=== PATIENT | female | born 1965 | race Caucasian/White ===

== ENCOUNTER 2020-05-20 08:43 | Outpatient (REF) | payer MEDICAID, SELFPAY | END 2020-05-20 08:44 | disposition home or self-care (01) | LOC: HO.LAB 08:43 | PROVIDERS: PCP Nurse Practitioner Family; Visit Provider Internal Medicine | DX: Z20.828 Contact with and (suspected) exposure to other viral communicable diseases (principal) | CPT/HCPCS: C9803; U0003 ==

== ENCOUNTER → 2020-06-20 08:39 | Outpatient (BNVA) | payer MEDICAID, SELFPAY | PROVIDERS: PCP Nurse Practitioner Family; Visit Provider Physician Assistant ==

== ENCOUNTER → 2020-06-29 09:08 | Outpatient (BNVA) | payer MEDICAID, SELFPAY | PROVIDERS: Visit Provider Physician Assistant ==

== ENCOUNTER → 2020-07-05 08:24 | Outpatient (BNVA) | payer MEDICAID, SELFPAY | PROVIDERS: PCP Nurse Practitioner Family; Visit Provider Orthopaedic Surgery | DX: M22.2X2 Patellofemoral disorders, left knee (principal) | CPT/HCPCS: 99212 ==

== ENCOUNTER 2020-09-04 07:33 | Outpatient (REF) | payer MEDICAID, SELFPAY | END 2020-09-04 07:34 | disposition home or self-care (01) | LOC: HO.LAB 07:33 | PROVIDERS: Visit Provider Internal Medicine | DX: Z20.822 Contact with and (suspected) exposure to COVID-19 (principal) | CPT/HCPCS: C9803; U0003; U0005 ==

== ENCOUNTER 2020-09-15 10:42 | Outpatient (REF) | payer MEDICAID, SELFPAY ==
[2020-09-15 11:04] LABS: COVID-19 Test Negative (Negative); IDNOW Serial# 55D5AD1C
== END 2020-09-15 10:43 | disposition home or self-care (01) ==
LOC: HO.LAB 10:42
PROVIDERS: Visit Provider Internal Medicine
DX: Z20.822 Contact with and (suspected) exposure to COVID-19 (principal)
CPT/HCPCS: 36415; 87635; C9803

== ENCOUNTER 2021-06-22 09:14 | Outpatient (REF) | payer MEDICAID, SELFPAY ==
--- NOTE | ~2021-06-22 | MM_ITS ---
EXAMINATION: MM SCREENING DIGITAL BREAST TOMOSYNTHESIS, BILATERAL CLINICAL INFORMATION: Screening. Asymptomatic. Prior left breast biopsy 02/05/2010 for a 2.8 cm mass upper outer quadrant(fibroadenoma; no clip placed). Prior right biopsy benign. The lifetime risk of breast cancer based on the Tyrer-Cuzick Model is 6%. COMPARISON: Mammography: 10/15/2018, 10/01/2017, 09/19/2016, 08/28/2015, 02/01/2015 TECHNIQUE: Digital breast tomosynthesis is performed in both the craniocaudal and mediolateral oblique views along with computer-aided detection (CAD). Synthesized 2D images are generated from the tomosynthesis. FINDINGS: There are scattered areas of fibroglandular density (ACR BI-RADS breast composition Category b). There are no significant masses, abnormal calcifications, or other abnormalities. Parenchymal pattern is similar to prior studies. There is no developing density or architectural abnormality. There is biopsy clip marker right breast mid upper outer quadrant. Fibroadenoma posterior upper outer left breast is decreased in size since 2014. The axilla and skin contours are unremarkable. No significant changes. MM/MM tomosynthesis screening BI IMPRESSION: No mammographic evidence of malignancy. ASSESSMENT: BI-RADS 2: Benign RECOMMENDATION: Routine annual mammography screening. This patient's information was entered into a reminder system with a target due date for their next mammogram.
== END 2021-06-22 09:15 | disposition home or self-care (01) ==
LOC: HO.MAMMO 09:14
PROVIDERS: PCP Internal Medicine; Visit Provider Internal Medicine
DX: Z12.31 Encounter for screening mammogram for malignant neoplasm of breast (principal)
CPT/HCPCS: 77063; 77067

== ENCOUNTER → 2021-08-29 10:23 | Outpatient (BNVA) | payer MEDICAID, SELFPAY | PROVIDERS: PCP Internal Medicine; Referring Provider Internal Medicine; Visit Provider Physician Assistant | DX: R13.10 Dysphagia, unspecified (principal) | CPT/HCPCS: 99212 ==

== ENCOUNTER 2022-03-05 09:01 | Day surgery (SDC) | payer MEDICAID, SELFPAY ==
[2021-11-01 14:39] VITALS: BMI 36.3
[2022-02-28 11:32] VITALS: BMI 36.3
--- NOTE | 2022-03-01 12:03 | HO.ANESPROP2 ---
Documented by User: Charley Alonso NP 03/01/22 12:03 HPI - Anesthesia Eval Consult details Narrative: 56yo F for Upper Endoscopy PMFSH Active Problems Active Problems: All Active Problems (Updated 08/29/21 @ 11:51 by Jalyn Shannon PA-C) Dysphagia (Acute) Patellofemoral pain syndrome of left knee (Acute) Bipolar 1 disorder (Acute) HTN (hypertension) (Acute) Past Medical History Medical History Bipolar 1 disorder HTN (hypertension) Family History Family History Mother No problems noted. Father No problems noted. 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 Alcohol intake: current Alcohol intake frequency: holidays/special occasions only Patient Tobacco Use Status: Current everyday Tobacco user Tobacco use type: Cigarette Cigarettes Per Day: 10 Date Education Initiated: 03/05/22 Use of substances other than those prescribed or required for medical reasons: Yes Substance Use Type: Marijuana Are you DNR?: No Advance Directives: No Advance Directives Information Provided: Yes Current occupational status: disabled Meds Allergies Allergy/AdvReac Type Severity Reaction Status Date / Time silicone [SILICONE] Allergy Severe RASH Verified 08/29/21 10:25 celecoxib [Celebrex] Allergy Intermediate hives Verified 11/01/21 14:32 peach Allergy Mild Hives Verified 11/01/21 14:33 Home Medications Medication Instructions Recorded Confirmed Last Taken Type quetiapine 50 mg tablet (Seroquel) 50 mg PO DAILY 06/29/20 11/01/21 Unknown History lamotrigine 100 mg tablet 100 mg PO DAILY 07/05/20 11/01/21 Unknown History Exam Exam Date and Time: March 01, 2022 1203 Height,Weight and Vital Signs: Height 5 ft 3 in Weight 92.986 kg Assessment and Plan Assessment Anesthesia Assessment: Chart Reviewed Documented by User: Tj Irving MD 03/05/22 10:03 HPI - Anesthesia Eval Consult details Narrative: 56yo F for Upper Endoscopy Potentially severe undiagnosed VIDYA PMFSH Past Medical History Medical History Bipolar 1 disorder HTN (hypertension) Family History Family History Mother No problems noted. Father No problems noted. 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 Alcohol intake: current Alcohol intake frequency: holidays/special occasions only Patient Tobacco Use Status: Current everyday Tobacco user Tobacco use type: Cigarette Cigarettes Per Day: 10 Date Education Initiated: 03/05/22 Use of substances other than those prescribed or required for medical reasons: Yes Substance Use Type: Marijuana Are you DNR?: No Advance Directives: No Advance Directives Information Provided: Yes Current occupational status: disabled Meds Allergies Allergy/AdvReac Type Severity Reaction Status Date / Time silicone [SILICONE] Allergy Severe RASH Verified 08/29/21 10:25 celecoxib [Celebrex] Allergy Intermediate hives Verified 11/01/21 14:32 peach Allergy Mild Hives Verified 11/01/21 14:33 Home Medications Medication Instructions Recorded Confirmed Last Taken Type quetiapine 50 mg tablet (Seroquel) 50 mg PO DAILY 06/29/20 11/01/21 Unknown History lamotrigine 100 mg tablet 100 mg PO DAILY 07/05/20 11/01/21 Unknown History Exam Airway Mallampati Class: II TM Dist: >3cm Neck ROM: Full Denture: Upper and Lower Assessment and Plan Assessment Anesthesia Assessment: Anesthesia Plan Discussed Final Anesthetic Review Family History of Problems with Anesthesia: No History of Problems with Anesthesia: No NPO: Yes ASA Class: III Final Preanesthetic Review: No Changes in Pt Med Stat, Meds/Allgs Chart Reviewed, Consent Obtained/Reviewed and Anes Risks/Benef Reviewed Patient Risk: Intermediate Procedure Risk: Low Anesthetic Plan Anesthetic Plan: MAC: Disposition: Standard PACU
[2022-03-05 09:37] VITALS: BP 133/73; PULSE 80; RESP 18; TEMP 36.1; O2SAT 100; BMI 34.3
--- NOTE | 2022-03-05 09:37 | MHC.SHP ---
Pre-Procedural Eval Section A Date of Service: 03/05/22 Section B Chief Complaint: dysphagia Relevant Family History (Specify if Yes): No Relevant Social History: Tobacco Use Present Medications: see Short Stay Collaborative assessment Medical History: Significant History (Bipolar 1 disorder HTN (hypertension)) History of Previous Operations: Relevant previous surgery/procedure and date(s) (Delivery by section H/O colonoscopy History of breast lump/mass excision History of esophagogastroduodenoscopy (EGD) Hx laparoscopic cholecystectomy Hx of excision of mass) Allergies: Allergies Allergy/AdvReac Type Severity Reaction Status Date / Time silicone [SILICONE] Allergy Severe RASH Verified 08/29/21 10:25 celecoxib [Celebrex] Allergy Intermediate hives Verified 11/01/21 14:32 peach Allergy Mild Hives Verified 11/01/21 14:33 Review of Systems Sugical H&P ROS: Negative: Constitution, Cardiovascular, Respiratory, Neurological, Psychiatric, Hem-Onc, Allergic/Immunologic, Gastrointestinal, Genitourinary, Musculoskeletal, Integumentary, Endocrine and Eyes/Ears/Nose/Throat Exam Surgical H&P Exam: Normal: HEENT, Normal: Heart, Normal: Lungs, Normal: Extremities, Normal: Abdomen, Normal: Skin and Normal: Neurological Plan Diagnosis/Plan: Unchanged I have reviewed the history and physical and performed a pertinent physical examination on my patient. No changes have occurred unless specified.
--- NOTE | 2022-03-05 10:03 | W.PM.OPN ---
Operative Note Operative Note Date of Service: 03/05/22 Narrative: Procedure Description: EGD Indication: dysphagia Anesthesia: MAC FLEXIBLE TRANSORAL UPPER GASTROINTESTINAL ENDOSCOPY UPPER ENDOSCOPY Consent: Indications for the procedure and potential complications of bleeding, perforation, reaction to medications and missed diagnosis were discussed with the patient and informed consent was obtained. Instrument: Olympus GIF H 190 J mid size upper endoscope Monitoring: Vital signs and clinical assessment, continuous EKG monitoring, Pulse oximetry, Carbon Dioxide monitoring and blood pressure monitoring were done throughout the procedure. Procedure: The patient was placed in the left lateral decubitis position and pre-procedure medications were administered and a bite block was placed. The endoscope was inserted into the mouth and advanced under direct vision to the third part of duodenum. A careful inspection was made as the upper endoscope was withdrawn including a retroflexed examination of the proximal stomach; Findings and interventions are described below. Findings: Larynx:normal Esophagus: GE junction at 38 cm, diaphragm hiatus at 38 cm, mild bogginess and edema at GEJ, bx taken. Balloon dilation of UEs and LES to 20 mm, no tears seen. Stomach: Patchy gastric erythema. Biopsies were obtained. Grade 2 flap valve on retroflexed examination of the cardia. Duodenum: Normal bulb and descending duodenum, Intervention: Biopsies as noted above, balloon dilation Impression/Findings: gastritis mild esophagitis PLAN: cont with PPI if ongoing sx then can increase PPI, or consider JEFFERS vs ph and manometry studies
[2022-03-05] MEDS: Lactated Ringers 1,000 ML 100 ML IVCONT (10:09)
[2022-03-05 10:35] VITALS: BP 144/84; PULSE 78; RESP 20; TEMP 36.4; O2SAT 98
[2022-03-05 10:54] VITALS: BP 154/87; PULSE 70; RESP 18; TEMP 36.2; O2SAT 100
== END 2022-03-05 11:13 | disposition home or self-care (01) ==
PROVIDERS: PCP Internal Medicine; Visit Provider Internal Medicine Gastroenterology
PROC: 0DJ08ZZ Inspection of Upper Intestinal Tract, Via Natural or Artificial Opening Endoscopic (ICD-10-PCS; CPT 43235; principal; 2022-03-05 10:10)
DX: R13.10 Dysphagia, unspecified (principal); K20.80 Other esophagitis without bleeding; K29.50 Unspecified chronic gastritis without bleeding; K44.9 Diaphragmatic hernia without obstruction or gangrene; K21.9 Gastro-esophageal reflux disease without esophagitis; F31.9 Bipolar disorder, unspecified; I10 Essential (primary) hypertension; Z79.899 Other long term (current) drug therapy; Z88.8 Allergy status to other drugs, medicaments and biological substances; F12.90 Cannabis use, unspecified, uncomplicated
CPT/HCPCS: 43249; 43239; 88305; 88342; C1726

== ENCOUNTER 2022-06-20 13:53 | Emergency (ER) | payer MEDICAID, SELFPAY ==
--- NOTE | ~2022-06-20 | XR_ITS ---
EXAMINATION: XR HAND, LEFT CLINICAL INFORMATION: Dogbite of the left hand fourth digit COMPARISON: 08/13/2016 TECHNIQUE: PA, lateral, and oblique views of the left hand. FINDINGS: Soft tissue irregularity of the fourth digit adjacent to the proximal interphalangeal joint. No acute fracture. No dislocation. Joint spaces are maintained. No radiopaque foreign body. XR/XR hand LT 2V IMPRESSION: Soft tissue irregularity of the fourth digit. No acute osseous abnormality. No radiopaque foreign body.
--- NOTE | 2022-06-20 14:14 | ED.ANIMALBIT ---
HPI - Animal Bite General Chief Complaint: Animal Bite <Aide Ding NP - Last Filed: 06/22/22 08:07> Stated Complaint: dog bite <Aide Ding NP - Last Filed: 06/22/22 08:07> Time Seen by Provider: 06/20/22 15:08 <Aide Ding NP - Last Filed: 06/22/22 08:07> History of Present Illness HPI narrative: Patient complains of dog bite from her own dog on the left ring finger and middle finger, she was moving the dog's bed and the dog bit her No other injuries no numbness weakness or tingling, dog is up-to-date on rabies vaccine and can be observed in her own house by her She has no difficulty bending or moving the finger and she can feel the fingertip <GRACE Venegas - Last Filed: 06/28/22 16:55> Related Data Home Medications: Home Medications Medication Instructions Recorded Confirmed quetiapine 50 mg tablet (Seroquel) 50 mg PO DAILY 06/29/20 11/01/21 lamotrigine 100 mg tablet 100 mg PO DAILY 07/05/20 11/01/21 Previous Rx's Medication Instructions Recorded omeprazole 20 mg capsule,delayed 20 mg PO DAILY #30 caps 02/27/22 release amoxicillin 875 mg-potassium 1 tab PO BID 5 days #10 tabs 06/20/22 clavulanate 125 mg tablet <Aide Ding NP - Last Filed: 06/22/22 08:07> Allergies/Adverse Reactions: Allergies Allergy/AdvReac Type Severity Reaction Status Date / Time silicone [SILICONE] Allergy Severe RASH Verified 08/29/21 10:25 celecoxib [Celebrex] Allergy Intermediate hives Verified 11/01/21 14:32 peach Allergy Mild Hives Verified 11/01/21 14:33 <Aide Ding NP - Last Filed: 06/22/22 08:07> [facility] Past Medical History Medical History: Medical History (Updated 06/21/22 @ 00:01 by Jacqueline Mac) Bipolar 1 disorder HTN (hypertension) <Aide Ding NP - Last Filed: 06/22/22 08:07> Surgical History: Surgical History Delivery by section H/O colonoscopy History of breast lump/mass excision History of esophagogastroduodenoscopy (EGD) Hx laparoscopic cholecystectomy Hx of excision of mass <Aide Ding NP - Last Filed: 06/22/22 08:07> Family History Family History: Family History Mother No problems noted. Father No problems noted. 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 Alcohol intake: never Patient Tobacco Use Status: Current everyday Tobacco user Tobacco use type: Cigarette Cigarettes Per Day: 10 Smoked in Last 30 Days: No Use of substances other than those prescribed or required for medical reasons: No Substance Use Type: Marijuana Advance Directives: No Current occupational status: disabled <Aide Ding NP - Last Filed: 06/22/22 08:07> Physical Exam ED Vital Signs: Vital Signs - 24 hr 06/20/22 14:15 Temperature 97.2 F Pulse Rate 85 Respiratory Rate 16 Blood Pressure 162/97 H Pulse Oximetry 98 Oxygen Delivery Method Room Air BMI result Body Mass Index 36.6 <Aide Ding NP - Last Filed: 06/22/22 08:07> Vital Signs - 24 hr 06/20/22 14:15 Temperature 97.2 F Pulse Rate 85 Respiratory Rate 16 Blood Pressure 162/97 H Pulse Oximetry 98 Oxygen Delivery Method Room Air BMI result Body Mass Index 36.6 <GRACE Venegas - Last Filed: 06/28/22 16:55> General appearance comfortable no distress Head is normocephalic atraumatic Neck is supple Respiratory no distress Extremities full range of motion x4 Left dorsal mid phalanx has a 1 cm superficial flap lack Left hand exam the left ring finger dorsal proximal phalanx and lateral pleura small phalanx has a 2 cm flap laceration with skin gaping, there is full range of motion in the finger, tendon function both flexion and extension is full and normal, sensation is intact distal, neurovascular intact The left 3rd finger has a superficial bite parker to the mid phalanx dorsal again full tendon function, neurovascular intact <GRACE Venegas - Last Filed: 06/28/22 16:55> Course Course Course Narrative: This is a rapid medical exam. Deferred additional HPI, ROS, PE to primary provider. 56 yo female with history HTN, hypothyroidism, depression, HLD, bipolar disorder here dog bite to left 4th finger from her own dog. Dog UTD with vaccinations. Patient with large laceration to left 4th finger. FROM in digit. Tetanus UTS, Will obtain x-ray. VSS <Aide Ding NP - Last Filed: 06/22/22 08:07> This is a rapid medical exam. Deferred additional HPI, ROS, PE to primary provider. 56 yo female with history HTN, hypothyroidism, depression, HLD, bipolar disorder here dog bite to left 4th finger from her own dog. Dog UTD with vaccinations. Patient with large laceration to left 4th finger. FROM in digit. Tetanus UTS, Will obtain x-ray. VSS Procedure note 2.5 cm flap laceration to the dorsal and lateral left ring finger, as well as the 2nd more superficial dorsal mid phalanx 1 cm laceration is cleansed and irrigated with normal saline copiously Anesthesia is 6 cc of 1% lidocaine digital block Loose sutures were placed, 850 nylon sutures to reapproximate the wound Dressing was placed The left 3rd finger laceration was irrigated but that not need repair <GRACE Venegas - Last Filed: 06/28/22 16:55> Medications Administered Discontinued Medications Generic Name Dose Route Start Last Admin Trade Name Jaguarq PRN Reason Stop Dose Admin Amoxicillin/Clavulanate Potassium 875 mg 06/20/22 15:14 06/20/22 16:33 Amoxicillin/Potassium Clav 875 Mg Tablet PO 06/20/22 15:15 875 mg ONCE ONE Administration Diphtheria/Tetanus/Acell Pertussis 0.5 ml 06/20/22 16:08 06/20/22 16:33 Diphth,Pertus(Acell),Tet Adult 0.5 Ml Syringe IM 06/20/22 16:09 0.5 ml .ONCE ONE Administration Lidocaine HCl 2 ml 06/20/22 15:14 06/20/22 16:17 Lidocaine Hcl 1 % Mpf 2 Ml Vial INFILTRATI 06/20/22 15:15 2 ml ONCE ONE Administration Lidocaine HCl 2 ml 06/20/22 15:14 06/20/22 16:17 Lidocaine Hcl 1 % Mpf 2 Ml Vial INFILTRATI 06/20/22 15:15 2 ml ONCE ONE Administration Lidocaine HCl 2 ml 06/20/22 15:14 06/20/22 16:17 Lidocaine Hcl 1 % Mpf 2 Ml Vial INFILTRATI 06/20/22 15:15 2 ml ONCE ONE Administration Lidocaine HCl 2 ml 06/20/22 15:14 06/20/22 16:17 Lidocaine Hcl 1 % Mpf 2 Ml Vial INFILTRATI 06/20/22 15:15 2 ml ONCE ONE Administration <Aide Ding NP - Last Filed: 06/22/22 08:07> Medications Administered Discontinued Medications Generic Name Dose Route Start Last Admin Trade Name Freq PRN Reason Stop Dose Admin Amoxicillin/Clavulanate Potassium 875 mg 06/20/22 15:14 06/20/22 16:33 Amoxicillin/Potassium Clav 875 Mg Tablet PO 06/20/22 15:15 875 mg ONCE ONE Administration Diphtheria/Tetanus/Acell Pertussis 0.5 ml 06/20/22 16:08 06/20/22 16:33 Diphth,Pertus(Acell),Tet Adult 0.5 Ml Syringe IM 06/20/22 16:09 0.5 ml .ONCE ONE Administration Lidocaine HCl 2 ml 06/20/22 15:14 06/20/22 16:17 Lidocaine Hcl 1 % Mpf 2 Ml Vial INFILTRATI 06/20/22 15:15 2 ml ONCE ONE Administration Lidocaine HCl 2 ml 06/20/22 15:14 06/20/22 16:17 Lidocaine Hcl 1 % Mpf 2 Ml Vial INFILTRATI 06/20/22 15:15 2 ml ONCE ONE Administration Lidocaine HCl 2 ml 06/20/22 15:14 06/20/22 16:17 Lidocaine Hcl 1 % Mpf 2 Ml Vial INFILTRATI 06/20/22 15:15 2 ml ONCE ONE Administration Lidocaine HCl 2 ml 06/20/22 15:14 06/20/22 16:17 Lidocaine Hcl 1 % Mpf 2 Ml Vial INFILTRATI 06/20/22 15:15 2 ml ONCE ONE Administration <GRACE Venegas - Last Filed: 06/28/22 16:55> Discharge Plan Discharge Clinical Impression: Dog bite, Laceration of left ring finger <Aide Ding NP - Last Filed: 06/22/22 08:07> Patient Disposition: Home, Self-Care <Aide Ding NP - Last Filed: 06/22/22 08:07> Additional Instructions: We gave you a tetanus shot We started Augmentin antibiotic to prevent infection The wound is cleaned as best possible and was sutured loosely as dog bites are prone to get infected Sutures need to be removed in 7 days Return any time for redness swelling discharge from wound increased pain from wound red stripe up the arm any sign of infection any worse condition or any concerns You got a tetanus shot today <Aide Ding NP - Last Filed: 06/22/22 08:07> Prescriptions: New amoxicillin-pot clavulanate 875-125 mg tablet 1 tab PO BID 5 Days Qty: 10 0RF No Action omeprazole 20 mg capsule,delayed release(DR/EC) 20 mg PO DAILY Qty: 30 5RF quetiapine [Seroquel] 50 mg tablet 50 mg PO DAILY lamotrigine 100 mg tablet 100 mg PO DAILY <Aide Ding NP - Last Filed: 06/22/22 08:07> Interventions: ED Discharge Assessment Last Done: 06/20/22 16:35 <Aide Dnig NP - Last Filed: 06/22/22 08:07> Discharge Date/Time: 06/20/22 16:36 <Aide Ding NP - Last Filed: 06/22/22 08:07>
[2022-06-20 14:15] VITALS: BP 162/97; PULSE 85; RESP 16; TEMP 36.2; O2SAT 98; BMI 36.6
--- NOTE | 2022-06-20 16:15 | PC.NURSE ---
faxed Animal Bite form to appropriate location.
[2022-06-20] MEDS: Lidocaine HCl 1 % MPF 2 ML VIAL INFILTRATI ×4 (16:17)
[2022-06-20] MEDS: Diphth,Pertus(ACell),Tet Adult 0.5 ML SYRINGE IM (16:33)
[2022-06-20] MEDS: Amoxicillin/Potassium Clav 875 MG TABLET PO (16:33)
== END 2022-06-20 16:36 | disposition home or self-care (01) ==
PROVIDERS: Emergency Provider Student in an Organized Health Care Education/Training Program
DX: S60.475A Other superficial bite of left ring finger, initial encounter (principal); S61.215A Laceration without foreign body of left ring finger without damage to nail, initial encounter; S60.415A Abrasion of left ring finger, initial encounter; W54.0XXA Bitten by dog, initial encounter; Y93.9 Activity, unspecified; Y92.9 Unspecified place or not applicable; Y99.9 Unspecified external cause status; Z23 Encounter for immunization; Z79.899 Other long term (current) drug therapy
CPT/HCPCS: 12042; 73120; 90471; 90715; 99283; 99284

== ENCOUNTER 2022-07-06 10:33 | Emergency (ER) | payer MEDICAID, SELFPAY ==
[2022-07-06 10:37] VITALS: BP 149/86; PULSE 102; RESP 16; TEMP 36.7; O2SAT 100; BMI 31.6
--- NOTE | 2022-07-06 11:15 | ED_ITS ---
HPI - General Adult General Chief complaint: Wound/Laceration Stated complaint: Suture removal Time Seen by Provider: 07/06/22 11:15 Source: patient Mode of arrival: ambulatory Limitations: no limitations History of Present Illness HPI narrative: Patient is a 56 year old assigned female at with a history of HTN and bipolar type 1 disorder presenting to the emergency department today for suture removal. Patient states that on 06/20/2022 she was bit by a dog and had sutures placed in her finger. Patient states that she finished her antibiotics. Patient states that she has been having some intermittent numbness to the finger affected but otherwise has no complaints. Patient denies any dizziness, lightheadedness, abdominal pain, nausea, vomiting, fever, chills, blurry vision, double vision, loss of vision, chest pain, difficulty breathing, shortness of breath, back pain, night sweats, pain with urination, increased urinary frequency, increased urinary urgency, blood in her urine or stool, syncope or a near syncopal episode, bowel incontinence, bladder incontinence, bowel retention, bladder retention, or any other complaints at this time. Severity: mild Severity scale (1-10): 2 Relieving factors: none Exacerbating factors: none Associated symptoms: denies other symptoms Treatments prior to arrival: none Related Data Home Medications Medication Instructions Recorded Confirmed quetiapine 50 mg tablet (Seroquel) 50 mg PO DAILY 06/29/20 11/01/21 lamotrigine 100 mg tablet 100 mg PO DAILY 07/05/20 11/01/21 Previous Rx's Medication Instructions Recorded omeprazole 20 mg capsule,delayed 20 mg PO DAILY #30 caps 02/27/22 release amoxicillin 875 mg-potassium 1 tab PO BID 5 days #10 tabs 06/20/22 clavulanate 125 mg tablet Allergies Allergy/AdvReac Type Severity Reaction Status Date / Time silicone [SILICONE] Allergy Severe RASH Verified 08/29/21 10:25 celecoxib [Celebrex] Allergy Intermediate hives Verified 11/01/21 14:32 peach Allergy Mild Hives Verified 11/01/21 14:33 Review of Systems Constitutional: Constitutional: Reports no additional constitutional complaints, Denies chills, Denies fever(s) and Denies night sweats Eyes: Eyes: Reports no additional eye complaints, Denies blurry vision, Denies change in vision, Denies diplopia, Denies eye discharge, Denies loss of vision and Denies eye pain ENT: Denies dizziness Cardiovascular: Cardiovascular: Reports no additional cardiovascular complaints, Denies chest pain, Denies lightheadedness, Denies Loss of Consciousness and Denies dyspnea Respiratory: Respiratory: Reports no additional respiratory complaints and Denies dyspnea Gastrointestinal: Gastrointestinal: Reports no additional gastrointestinal complaints, Denies abdominal pain, Denies melena, Denies hematochezia, Denies change in bowel habits and Denies change in stool character Genitourinary: Genitourinary: Denies hematuria, Denies urinary frequency, Denies dysuria, Denies urinary incontinence, Denies urinary hesitancy and Denies urinary urgency Musculoskeletal: Musculoskeletal: Reports no additional musculoskeletal com plaints, Denies numbness and Reports tingling (intermittently to left ring finger) Neurologic: Denies dizziness, Denies loss of vision, Denies numbness and Reports tingling (intermittently to left ring finger) Psychiatric: Psychiatric: Reports no additional psychiatric complaints Endocrine: Endocrine: Reports no additional endocrine complaints Hematologic/Lymphatic: Hematologic/Lymphatic: Reports no additional hematologic/lymphatic complaints Allergic/Immunologic: Allergic/Immunologic: Reports no additional allergic/immunologic complaints [facility]LY [facility] Past Medical History Attestation statement: The following information was validated with the patient. Source: old records reviewed and nursing notes reviewed Medical History Bipolar 1 disorder HTN (hypertension) Surgical History Delivery by section H/O colonoscopy History of breast lump/mass excision History of esophagogastroduodenoscopy (EGD) Hx laparoscopic cholecystectomy Hx of excision of mass Family History Family History Mother No problems noted. Father No problems noted. 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 transferrer Alcohol intake: never Patient Tobacco Use Status: Current everyday Tobacco user Tobacco use type: Cigarette Cigarettes Per Day: 10 Substance Use Type: Marijuana Advance Directives: No Advance Directives Information Provided: Yes Current occupational status: disabled Physical Exam ED Vital Signs: Vital Signs - 24 hr 07/06/22 10:37 Temperature 98.1 F Pulse Rate 102 H Respiratory Rate 16 Blood Pressure 149/86 H Pulse Oximetry 100 Oxygen Delivery Method Room Air BMI result Body Mass Index 31.6 Const General: cooperative, no acute distress, alert and awake Nutritional Appearance: well nourished Orientation/consciousness: patient oriented x3 Limitations: no limitations HENMT Head: Yes normal to inspection and Yes atraumatic Ears: hearing grossly normal bilaterally and external ears normal General nose exam: Normal external nose present, no nasal discharge noted and no epistaxis Face and sinus: Yes normal facial exam, No abrasion and No laceration Mouth: Normal oral and palatal mucosa present, no drooling and no muffled voice Eyes General: appearance normal, both eyes and all related structures Periorbital: periorbital findings normal Eyelids: Yes eyelids normal Conjunctivae: conjunctivae normal Pupils: Equal, round and reactive pupils present EOM: EOMs intact bilaterally Neck Neck: Yes normal visual inspection, Yes full ROM and Yes no lymphadenopathy Chest Chest palpation & inspection: normal inspection of the chest Resp Effort & Inspection: normal respiratory effort and able to speak in complete sentences Auscultation: clear to auscultation bilaterally GI Inspection: Yes normal to inspection Neuro General: patient oriented x3 and moves all extremities Cranial nerves: Yes Equal, round and reactive pupils present Cognition (Neuro): normal cognition Motor exam (neuro): 5/5 motor strength present throughout Sensory Exam: Normal double simultaneous stimulation for sensation Coordination: [id number] test normal Extrem Other: 8 nylon sutures present in the left ring finger, wound well approximated, no evidence of infection General: Yes full ROM and Yes capillary refill normal Psych Appearance: grossly normal Mental Status: mental status grossly normal Affect: normal affect Attitude: cooperative Thought process: Normal thought process present Thought content: Normal thought content present Insight: Good insight present (Psych) Procedures Procedure Narrative Procedure Narrative: 8 Nylon sutures removed from the left ring finger, without incident. Medical Decision Making Medical Decision Making MDM Narrative: Patient is a 56 year old assigned female at with a history of HTN and Bipolar type 1 disorder presenting to the emergency department today for suture removal. Patient's physical exam showed 8 nylon sutures present in the left ring finger, wound well approximated, no evidence of infection. I explained my physical exam findings to the patient. I answered all questions asked by the patient. Patient's sutures were removed, per procedure note, without incident. I stressed the importance of the patient taking her medication as prescribed. I stressed the importance of the patient following up with her primary care provider and given her intermittent tingling, an orthopedic provider. I stressed the importance of the patient returning to the emergency department immediately if her symptoms were to worsen or if she were to develop any dizziness, shortness of breath, difficulty breathing, chest pain, blurry vision, loss of vision, nausea, vomiting, abdominal pain, fever, chills, back pain, or any other complaints. Patient verbalized agreement and understanding with this treatment plan and discharge. Differential Diagnosis Differential Diagnoses: The differential diagnosis associated with the presentation includes suture removal Discharge Plan Discharge Clinical Impression: Visit for suture removal Patient Disposition: Home, Self-Care Additional Instructions: Follow up with your primary care provider and an orthopedic provider. Return to the emergency department immediately if your symptoms worsen or if you develop any dizziness, shortness of breath, difficulty breathing, chest pain, blurry vision, loss of vision, nausea, vomiting, abdominal pain, fever, chills, back pain, or any other complaints. Prescriptions: No Action omeprazole 20 mg capsule,delayed release(DR/EC) 20 mg PO DAILY Qty: 30 5RF amoxicillin-pot clavulanate 875-125 mg tablet 1 tab PO BID 5 Days Qty: 10 0RF quetiapine [Seroquel] 50 mg tablet 50 mg PO DAILY lamotrigine 100 mg tablet 100 mg PO DAILY Referrals: [facility] [place] Family Medicine [Provider Group] (Call to establish and follow up with a primary care provider. If you already have a primary care provider, please follow up with them. ) [facility] [place] Primary Care[facility] [Provider Group] (Call to establish and follow up with a primary care provider. If you already have a primary care provider, please follow up with them. ) [facility] [place] Primary Care,Eva [Provider Group] (Call to establish and follow up with a primary care provider. If you already have a primary care provider, please follow up with them. ) [facility] [Provider Group] (Call to establish and follow up with an orthopedic provider. ) Interventions: ED Discharge Assessment Last Done: 07/06/22 11:22 Discharge Date/Time: 07/06/22 11:24 Print Language: Russian
== END 2022-07-06 11:24 | disposition home or self-care (01) ==
LOC: HO.ED 11:22
PROVIDERS: Emergency Provider Student in an Organized Health Care Education/Training Program
DX: Z48.02 Encounter for removal of sutures (principal); S61.255D Open bite of left ring finger without damage to nail, subsequent encounter; W54.0XXD Bitten by dog, subsequent encounter
CPT/HCPCS: 99282; 99283

== ENCOUNTER 2023-04-30 19:30 | Outpatient (REF) | payer MEDICAID, SELFPAY ==
[2023-05-02 21:59] LABS: C. trachomatis RNA TMA NOT DETECTED (NOT DETECTED); Candida glabrata RNA NOT DETECTED (NOT DETECTED); Candida species RNA NOT DETECTED (NOT DETECTED); N. gonorrhoeae RNA TMA NOT DETECTED (NOT DETECTED); Trichomonas vaginalis RNA NOT DETECTED (NOT DETECTED)
[2023-05-03 04:33] LABS: HPV mRNA E6/E7 rflx Not Detected (Not Detected)
== END 2023-04-30 19:31 | disposition home or self-care (01) ==
LOC: HO.HHCLNP 19:30
PROVIDERS: Visit Provider General Practice
DX: Z12.4 Encounter for screening for malignant neoplasm of cervix (principal)
CPT/HCPCS: 36415; 81513; 87481; 87491; 87591; 87624; 87661; 88142

== ENCOUNTER 2023-06-10 16:27 | Outpatient (REF) | payer MEDICAID, SELFPAY | END 2023-06-10 16:28 | disposition home or self-care (01) | LOC: HO.HHCLNP 16:27 | PROVIDERS: Visit Provider General Practice | DX: M25.561 Pain in right knee (principal); M25.562 Pain in left knee; G89.29 Other chronic pain | CPT/HCPCS: 36415; 80353 ==

== ENCOUNTER 2023-07-31 09:53 | Outpatient (REF) | payer MEDICAID, SELFPAY ==
--- NOTE | ~2023-07-31 | XR_ITS ---
EXAMINATION: XR KNEE, RIGHT CLINICAL INFORMATION: Right knee pain. COMPARISON: MRI right knee 12/08/2019 TECHNIQUE: Four views of the right knee. FINDINGS: Alignment is anatomic. There is mild medial tibiofemoral and patellofemoral cartilage space loss with marginal osteophytes. No displaced fracture. Small suprapatellar joint effusion. XR/XR knee RT 2V IMPRESSION: Mild osteoarthritis of the right knee.
== END 2023-07-31 09:54 | disposition home or self-care (01) ==
LOC: HO.HHCX 09:53
PROVIDERS: Visit Provider Student in an Organized Health Care Education/Training Program
DX: M25.561 Pain in right knee (principal); G89.29 Other chronic pain
CPT/HCPCS: 73560

== ENCOUNTER 2023-08-03 08:50 | Emergency (ER) | payer MEDICAID, SELFPAY ==
--- NOTE | ~2023-08-03 | US_ITS ---
EXAMINATION: US VENOUS ULTRASOUND WITH DOPPLER LOWER EXTREMITY, RIGHT CLINICAL INFORMATION: calf pain, posterior knee pain COMPARISON: None available. TECHNIQUE: Ultrasound of the deep veins is performed from the hip to the calf with compression sonography and color and pulse Doppler assessment. Spectral analysis with color-flow imaging is performed. FINDINGS: There is normal venous compression and respiratory variation and augmented flow. The visualized common femoral vein, superficial femoral vein, profunda femoral vein, popliteal vein, and the trifurcation region shows no evidence of deep venous thrombosis. There is no significant popliteal fossa cyst. If the patient's symptoms persist, followup ultrasound in 5 days 7 days might be of value to exclude proximal propagation from a non-visualized calf vein. US/US venous duplex LE RT IMPRESSION: No DVT demonstrated in the right lower extremity.
[2023-08-03 08:56] VITALS: BP 150/93; PULSE 82; RESP 19; TEMP 36.6; O2SAT 98; BMI 35.8
--- NOTE | 2023-08-03 10:08 | ED.LOWEXIN ---
HPI - Extremity Injury (Lower) General Chief Complaint: Extremity Injury, Lower Stated Complaint: R leg pain Time Seen by Provider: 08/03/23 09:57 Source: patient and RN notes reviewed Mode of arrival: ambulatory Limitations: no limitations History of Present Illness HPI Narrative: This is a 57-year-old female, with a history hypertension, hyperlipidemia, bipolar 1 disorder, hypothyroidism, and chronic right knee pain, who presents emergency department with complaints of acute on chronic right knee pain which started 2 weeks ago. Patient states that she has known arthritis in her right knee. She denies any recent trauma or injury. She was seen by her primary care physician who ordered a x-ray of her right knee. This revealed mild osteoarthritis. She denies any further injury to her knee. She states that the pain is throbbing in nature, and swollen, reports decreased range of motion of her right knee as well as fullness sensation behind her right knee. Denies any calf tenderness. She has been taking ibuprofen at home which has provided her with minimal relief. She states that she follows up with orthopedics on Friday where they will give her a cortisone injection. She states that she is unable to tolerate the pain. She denies any fevers, chills, chest pain, shortness breast, abdominal pain, nausea, vomiting or diarrhea. No other complaints or concerns at this time. MD complaint: knee injury Onset (ago): week(s) Relieving factors: NSAID, immobilization and rest Exacerbating factors: weight bearing, movement and palpation Associated symptoms: swelling and able to partially bear weight Related Data Home Medications Medication Instructions Recorded Confirmed quetiapine 50 mg tablet (Seroquel) 50 mg PO DAILY 06/29/20 11/01/21 lamotrigine 100 mg tablet 100 mg PO DAILY 07/05/20 11/01/21 Previous Rx's Medication Instructions Recorded amoxicillin 875 mg-potassium 1 tab PO BID 5 days #10 tabs 06/20/22 clavulanate 125 mg tablet omeprazole 20 mg capsule,delayed 20 mg PO DAILY #30 caps 09/23/22 release acetaminophen 650 mg 650 mg PO Q8H PRN pain #30 tabs 08/03/23 tablet,extended release (Tylenol 8 Hour) ibuprofen 600 mg tablet 600 mg PO Q6H PRN pain #30 tabs 08/03/23 Allergies Allergy/AdvReac Type Severity Reaction Status Date / Time silicone [SILICONE] Allergy Severe RASH Verified 08/03/23 08:55 celecoxib [Celebrex] Allergy Intermediate hives Verified 08/03/23 08:55 peach Allergy Mild Hives Verified 08/03/23 08:55 Review of Systems Review of Systems: Yes all other systems are reviewed and are negative Constitutional: Constitutional: Reports as per [facility] Past Medical History Attestation statement: The following information was validated with the patient. Medical History Bipolar 1 disorder HTN (hypertension) Surgical History Hx of excision of mass Hx laparoscopic cholecystectomy History of breast lump/mass excision History of esophagogastroduodenoscopy (EGD) H/O colonoscopy Delivery by section Family History Family History Mother No problems noted. Father No problems noted. 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 Alcohol intake: never Patient Tobacco Use Status: Current everyday Tobacco user Tobacco use type: Cigarette Cigarettes Per Day: 10 Substance Use Type: Marijuana Advance Directives: No Advance Directives Information Provided: No Current occupational status: disabled Physical Exam Vital Signs: Vital Signs: Last Vital Signs Temp 98 F 08/03/23 08:56 Pulse 82 08/03/23 08:56 Resp 19 08/03/23 08:56 BP 150/93 H 08/03/23 08:56 Pulse Ox 98 08/03/23 08:56 BMI result Body Mass Index 35.8 Const: General: cooperative, comfortable and no acute distress Orientation/consciousness: patient oriented x3 Limitations: no limitations HEENT: Head: Yes normal to inspection, Yes normocephalic and Yes atraumatic Ears: hearing grossly normal bilaterally General nose exam: Normal external nose present Face and sinus: Yes normal facial exam Mouth: Normal oral and palatal mucosa present, oropharynx normal and moist mucous membranes Throat: Yes posterior oropharynx normal Eyes: General: appearance normal, both eyes and all related structures Eyelids: Yes eyelids normal Conjunctivae: conjunctivae normal Sclerae: sclerae normal Pupils: Equal, round and reactive pupils present EOM: EOMs intact bilaterally Neck: Neck: Yes normal visual inspection, Yes full ROM and Yes no lymphadenopathy Lymphatic: no lymphadenopathy noted Chest: Chest palpation & inspection: normal inspection of the chest Resp: Effort & Inspection: normal respiratory effort and able to speak in complete sentences Cardio: Rate: regular rate Rhythm: regular rhythm GI: Inspection: Yes normal to inspection Skin: General skin exam: no rashes or lesions noted Trauma: no lacerations or abrasions Wounds: no wounds Neuro: General: patient oriented x3 and moves all extremities Cranial nerves: Yes Equal, round and reactive pupils present Extrem: Other: Right knee joint appears larger, no induration or fluctuance, no erythema or warmth. Full range of motion of the knee with pain elicited. Tenderness palpation in the retro patellar region. Calf is nontender. Full range of motion the ankle joint. DP pulse 2+. No joint laxity with varus and valgus strain. Negative anterior-posterior drawer test. General: Yes normal to inspection Right upper extremity: normal to inspection Left upper extremity: normal to inspection Left lower extremity: normal to inspection Course Reevaluation(s) Reevaluation #1: Ultrasound returns, no evidence of DVT or Odell's cyst. Discussed findings with patient. Patient's knee placed in Devan wrap, given crutches. Also given orthopedic follow-up. She has a cortisone injection scheduled for Friday. Patient given return precautions. Patient agrees with plan. Patient stable for discharge. Time: 11:25 Medications Administered Discontinued Medications Generic Name Dose Route Start Last Admin Trade Name Freq PRN Reason Stop Dose Admin Acetaminophen 975 mg 08/03/23 10:07 08/03/23 10:23 Acetaminophen 325 Mg Tablet PO 08/03/23 10:08 975 mg ONCE ONE Administration Medical Decision Making Medical Decision Making [facility] Narrative: This is a 57-year-old female, with a history of hypothyroidism, hyperlipidemia, hypertension, who presents emergency department with complaints of acute on chronic right knee pain x2 weeks. Patient denies any recent trauma or injury. On arrival, patient mildly hypertensive at 150/93, all other vital signs within normal limits. On physical exam, right knee appears to be osteoarthritic, with no tenderness along the joint lines. She does have fullness and pain retro patellarly. Differential diagnoses include osteoarthritis, Odell's cyst, septic arthritis-unlikely, fracture-unlikely. Patient had a x-ray performed 2 days ago which is seen in her medical records, revealing mild osteoarthritis. Given patient has fullness and pain behind her knee, will obtain ultrasound to rule out Odell's cyst versus DVT. She has no chest pain or shortness of breath. Plan: Ultrasound right lower extremity, Tylenol 1 g p.o. Differential Diagnosis Differential Diagnoses: The differential diagnosis associated with the presentation includes See above Admission/Observation Consideration of admission/observation: Escalation of care including admission/observation considered Patient would have been admitted to the hospital had her work up had any findings where hospital admission was appropriate and her clinical presentation warranted hospital admission. Radiology Impression Discussion of test interpretation with radiology: I have reviewed the radiologist's reading. Radiologist Impression: EXAMINATION: US VENOUS ULTRASOUND WITH DOPPLER LOWER EXTREMITY, RIGHT CLINICAL INFORMATION: calf pain, posterior knee pain COMPARISON: None available. TECHNIQUE: Ultrasound of the deep veins is performed from the hip to the calf with compression sonography and color and pulse Doppler assessment. Spectral analysis with color-flow imaging is performed. FINDINGS: There is normal venous compression and respiratory variation and augmented flow. The visualized common femoral vein, superficial femoral vein, profunda femoral vein, popliteal vein, and the trifurcation region shows no evidence of deep venous thrombosis. There is no significant popliteal fossa cyst. If the patient's symptoms persist, followup ultrasound in 5 days 7 days might be of value to exclude proximal propagation from a non-visualized calf vein. US/US venous duplex LE RT IMPRESSION: No DVT demonstrated in the right lower extremity. Dictated By: n Discharge Plan Discharge Clinical Impression: Knee osteoarthritis Patient Disposition: Home, Self-Care Instructions: Osteoarthritis (ED) Additional Instructions: You were seen in the emergency department due to right knee pain. Your ultrasound today does not show any blood clots or Odell's cyst. Your pain is likely attributed to osteoarthritis. Continue taking ibuprofen and Tylenol for pain. Please rest, use Devan wrap, and crutches. Gentle range of motion and following up with your provider on Friday will be beneficial. If any new or worsening symptoms occur including but not limited to headaches, dizziness, blurred vision, chest pain, shortness of breath, worsening pain, redness, swelling to the joint, please return for re-evaluation. You may also follow-up with Orthopedics, call to make an appointment. Prescriptions: New ibuprofen 600 mg tablet 600 mg PO Q6H PRN (Reason: pain) Qty: 30 0RF acetaminophen [Tylenol 8 Hour] 650 mg tablet extended release 650 mg PO Q8H PRN (Reason: pain) Qty: 30 0RF No Action omeprazole 20 mg capsule,delayed release(DR/EC) 20 mg PO DAILY Qty: 30 5RF amoxicillin-pot clavulanate 875-125 mg tablet 1 tab PO BID 5 Days Qty: 10 0RF quetiapine [Seroquel] 50 mg tablet 50 mg PO DAILY lamotrigine 100 mg tablet 100 mg PO DAILY [place] [facility] [place] [facility] [Provider Group]
[2023-08-03] MEDS: Acetaminophen 325 MG TABLET 975 MG PO (10:23)
[2023-08-03 11:35] VITALS: BP 134/92; PULSE 85; RESP 16; TEMP 36.8; O2SAT 98
== END 2023-08-03 11:37 | disposition home or self-care (01) ==
PROVIDERS: Emergency Provider Student in an Organized Health Care Education/Training Program; PCP General Practice
DX: M17.11 Unilateral primary osteoarthritis, right knee (principal); R60.0 Localized edema; Z79.899 Other long term (current) drug therapy
CPT/HCPCS: 93971; 99284

== ENCOUNTER 2023-08-18 08:57 | Outpatient (AMB) | payer MEDICAID, SELFPAY ==
--- NOTE | 2023-08-18 09:27 | MHC.OFFVIS ---
Intake Vital Signs 08/18/23 09:28 Height 5 ft 3 in Weight 202 lb BMI 35.8 Intake Visit Reasons: New Pt - Bilateral Knee OA Intake Note: Angela is a 58 year old female who presents today as a new patient with complaints of bilateral knee pain. She complains of pain all the time and is having pain and stiffness of both the knees but the right knee is worse than the left. She does get cortisone injections with [facility] the injections do help but for a short period of time. right right was recently injected and the left will be injected in August. She is taking tylenol & ibuprofen which gives her mild relief. she is wearing a knee brace which does help. Complains of pain and swelling in the posterior aspect of the knee Allergies silicone [SILICONE] Allergy (Severe, Verified 08/03/23 08:55) RASH celecoxib [Celebrex] Allergy (Intermediate, Verified 08/03/23 08:55) hives peach Allergy (Mild, Verified 08/03/23 08:55) Hives HPI New Pt - Bilateral Knee OA HPI Details Angela is a 58 year old female who presents today as a new patient with complaints of bilateral knee pain. She complains of pain all the time and is having pain and stiffness of both the knees but the right knee is worse than the left. She does get cortisone injections with [facility] the injections do help but for a short period of time. right right was recently injected and the left will be injected in August. She is taking tylenol & ibuprofen which gives her mild relief. she is wearing a knee brace which does help. Complains of pain and swelling in the posterior aspect of the knee [facility] Medical History Bipolar 1 disorder HTN (hypertension) Surgical History Hx of excision of mass Hx laparoscopic cholecystectomy History of breast lump/mass excision History of esophagogastroduodenoscopy (EGD) H/O colonoscopy Delivery by section Family History Mother No problems noted. Father No problems noted. 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 1+ varus instability, mild Results Reviewed Results Reviewed: I personally reviewed relevant radiographs. Mild medial compartment osteoarthritis Assessment & Plan Assessment & Plan (1) Patellofemoral pain syndrome of left knee: Code(s): M22.2X2 - Patellofemoral disorders, left knee Plan: This is a 58-year-old with osteoarthritis of the right knee. She is getting injections at an outside clinic which is helpful and wants to continue to do that. I think that is reasonable. She can follow-up with me on an as-needed basis. Coding Level of Care Code New Pt Level 3 (14661) Diagnoses Patellofemoral pain syndrome of left knee M22.2X2
[2023-08-18 09:28] VITALS: BMI 35.8
== END 2023-08-18 10:21 | disposition home or self-care (01) ==
PROVIDERS: PCP General Practice; Visit Provider Orthopaedic Surgery
DX: M22.2X2 Patellofemoral disorders, left knee (principal); M22.2X1 Patellofemoral disorders, right knee
CPT/HCPCS: 99202

== ENCOUNTER → 2023-08-18 08:57 | Outpatient (BNVA) | payer MEDICAID, SELFPAY | PROVIDERS: PCP General Practice; Visit Provider Orthopaedic Surgery | DX: M22.2X2 Patellofemoral disorders, left knee (principal) | CPT/HCPCS: 99202 ==

== ENCOUNTER 2023-09-30 11:40 | Outpatient (REF) | payer MEDICAID, SELFPAY ==
[2023-09-30 13:48] LABS: Estimated Average Glucose 131 mg/dL; Hemoglobin A1c % 6.2 % (<6.0)
[2023-09-30 13:57] LABS: Alanine Aminotransferase 12 U/L (0-31); Albumin Level 4.1 g/dL (3.5-5.0); Alkaline Phosphatase 81 U/L (39-117); Anion Gap 14 (12-20); Aspartate Amino Transferase 13 U/L (5-31); Bilirubin Total 0.3 mg/dL (0.0-1.0); Blood Urea Nitrogen 8 mg/dL (9-16); Calcium 10.3 mg/dL (8.4-10.2); Carbon Dioxide 25 mmol/L (22-29); Chloride 106 mmol/L (96-108); Cholesterol 134 mg/dL (<200); Estimated Glomerular Filt Rate > 60; Glucose Random 131 mg/dL (60-115); HDL Cholesterol 46 mg/dL (>40); LDL Cholesterol Calculated 62 mg/dL (<100); Sodium 141 mmol/L (135-145); Total Protein 7.4 g/dL (6.5-8.0); Triglycerides 134 mg/dL (<150)
[2023-09-30 14:15] LABS: TSH reflex Free T4 1.67 uIU/mL (0.32-4.0)
[2023-10-01 04:08] LABS: HIV AB/AG Nonreactive (Nonreactive); HIV Num 1 0.04 S/CO (0.00-0.99); ~Hepatitis C Antibody Nonreactive (Nonreactive)
== END 2023-09-30 11:41 | disposition home or self-care (01) ==
LOC: HO.HHCL 11:40
PROVIDERS: Visit Provider General Practice
DX: Z11.3 Encounter for screening for infections with a predominantly sexual mode of transmission (principal); R73.03 Prediabetes; E03.9 Hypothyroidism, unspecified
CPT/HCPCS: 36415; 80053; 80061; 83036; 84443; 86803; 87086; 87389

== ENCOUNTER 2023-10-05 09:40 | Emergency (ER) | payer MEDICAID, SELFPAY ==
[2023-10-05 09:41] VITALS: BP 137/79; PULSE 108; RESP 18; TEMP 36.6; O2SAT 100; BMI 32.8
[2023-10-05 10:15] VITALS: BP 132/67; PULSE 96; RESP 16; TEMP 37; O2SAT 97
--- NOTE | 2023-10-05 10:17 | PC.NURSE ---
a&ox4. vss and up to date. pt presents to ED w/ right sided headache that radiates to right eye x 5 days. pt verbalizes nausea and sensitivity to light. lights dimmed to promote comfort. pt denies any episodes of vomiting. pt also denies change in vision. pt waiting to see ED provider. no sob/wob noted. respirations even and unlabored. plan of care ongoing. call dunaway placed/ within reach.
--- NOTE | 2023-10-05 10:59 | ED_ITS ---
HPI - Headache General Chief Complaint: Headache Stated Complaint: Migraine 5 days Time Seen by Provider: 10/05/23 10:46 Source: patient Mode of arrival: ambulatory Limitations: no limitations History of Present Illness HPI Narrative: 58-year-old female with history of bipolar, HTN, dysphagia, migraines who presents to the ER for evaluation of a migraine headache for the last 5 days. She states the headache is sharp and on the right side of her face and head. It radiates behind her eye. No vision changes. She saw her PCP and was prescribed sumatriptan and amitriptyline with little relief. She reports her last migraine was about 2 years ago. She denies any falls or trauma. She has some photosensitivity long with this headache. She vomited 2 days ago but none since. No abdominal pain. MD elicited complaint: migraine Pertinent past history: migraines Onset description: gradually Location: right and retro-orbital Severity: severe Quality & Timing: similar to previous headaches Exacerbating factors: light Relieving factors: rest Associated symptoms: none Treatments prior to arrival: none Related Data Home Medications ?Medication ?Instructions ?Recorded ?Confirmed quetiapine 50 mg tablet (Seroquel) 50 mg PO DAILY 06/29/20 11/01/21 lamotrigine 100 mg tablet 100 mg PO DAILY 07/05/20 11/01/21 estradiol 0.05 mg-norethindrone 1 patch topical 2XW 08/18/23 0.14 mg/24 hr semiwkly transderm patch (CombiPatch) gabapentin 300 mg capsule 300 mg PO TID 08/18/23 hydrochlorothiazide 25 mg tablet 25 mg PO QAM 08/18/23 levothyroxine 137 mcg tablet 137 mcg PO QAM 08/18/23 lidocaine 5 % topical patch patch topical 08/18/23 lisinopril 40 mg tablet 40 mg PO QAM 08/18/23 rosuvastatin 5 mg tablet 5 mg PO QAM 08/18/23 Previous Rx's ?Medication ?Instructions ?Recorded amoxicillin 875 mg-potassium 1 tab PO BID 5 days #10 tabs 06/20/22 clavulanate 125 mg tablet omeprazole 20 mg capsule,delayed 20 mg PO DAILY #30 caps 09/23/22 release acetaminophen 650 mg 650 mg PO Q8H PRN pain #30 tabs 08/03/23 tablet,extended release (Tylenol 8 Hour) ibuprofen 600 mg tablet 600 mg PO Q6H PRN pain #30 tabs 08/03/23 rlhrmbnvbt-fnkxqxuupqjfi-atxhvoed 1 tab PO Q6H PRN pain #6 tabs 10/05/23 50 mg-325 mg-40 mg tablet Allergies Allergy/AdvReac Type Severity Reaction Status Date / Time silicone [SILICONE] Allergy Severe RASH Verified 10/05/23 09:42 celecoxib [Celebrex] Allergy Intermediate hives Verified 10/05/23 09:42 peach Allergy Mild Hives Verified 10/05/23 09:42 Review of Systems Review of Systems: Yes all other systems are reviewed and are negative [facility] Past Medical History Medical History Bipolar 1 disorder HTN (hypertension) Surgical History Hx of excision of mass Hx laparoscopic cholecystectomy History of breast lump/mass excision History of esophagogastroduodenoscopy (EGD) H/O colonoscopy Delivery by section Family History Family History Mother No problems noted. Father No problems noted. 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 Alcohol intake: current Alcohol intake frequency: holidays/special occasions only Patient Tobacco Use Status: Current everyday Tobacco user Tobacco use type: Cigarette Cigarettes Per Day: 10 Smoked in Last 30 Days: Yes Use of substances other than those prescribed or required for medical reasons: Yes Substance Use Type: Marijuana Advance Directives: No Advance Directives Information Provided: No Do you have a plan to hurt others: No Plan Patient : No Current occupational status: disabled Physical Exam Vital Signs: Vital Signs: Last Vital Signs Temp 98.6 F 10/05/23 13:23 Pulse 96 10/05/23 13:23 Resp 16 10/05/23 13:23 BP 132/67 10/05/23 13:23 Pulse Ox 97 10/05/23 13:23 O2 Del Method Room Air 10/05/23 13:23 BMI result Body Mass Index 32.8 Appearance: Alert. Oriented X3. No acute distress. Head: normocephalic, atraumatic. Eyes: Pupils equal, round and reactive to light. ENT: Pharynx normal. No tonsillar swelling or exudate. Neck: Normal inspection. Neck supple. CVS: Normal heart rate and rhythm. Pulses normal. Respiratory: No respiratory distress. Breath sounds normal. Abdomen: Soft and nontender. +BS x4 Skin: Skin warm and dry. Normal skin color. Normal skin turgor. No rashes. Extremities: No lower extremity edema. No joint swelling. Neuro/psych: Oriented X 3. No motor deficit. No sensory deficit. CN II-XII intact. Normal speech and cognition. Nonfocal Medications Administered Discontinued Medications Generic Name Dose Route Start Last Admin Trade Name Freq PRN Reason Stop Dose Admin Diphenhydramine HCl 50 mg 10/05/23 11:02 10/05/23 11:18 Diphenhydramine Hcl 50 Mg/Ml Vial IVPUSH 10/05/23 11:03 50 mg ONCE ONE Administration Sodium Chloride 1,000 mls @ 999 mls/hr 10/05/23 11:15 10/05/23 12:30 Ns IVCONT 10/05/23 12:15 Infused .Q1H1M KACIE Infusion Metoclopramide HCl 10 mg 10/05/23 11:02 10/05/23 11:19 Metoclopramide Hcl 10 Mg/2 Ml Vial IVPUSH 10/05/23 11:03 10 mg ONCE ONE Administration Medical Decision Making Medical Decision Making [facility] Narrative: 58-year-old female with a history of bipolar, HTN, migraines who presents to the ER for evaluation of a right-sided migraine headache for the last 5 days. She reports minimal relief with newly prescribed amitriptyline and sumatriptan from her PCP. She is nontender right evangelical on exam, making temporal arteritis less likely. No vision changes. No neck pain. IV was established patient was given IV Benadryl and Reglan with significant improvement in her headache. She is allergic to NSAIDs. Comfortable w/ discharge home and outpatient follow up PRN. trial of fiorcet ordered for home Differential Diagnosis Differential Diagnoses: The differential diagnosis associated with the presentation includes Migraine headache, tension headache, temporal arteritis, cluster headache, dehydration, MS, hypertensive headache Lab Data [facility] Lab Attestation statement: I reviewed the patient's lab results. Labs: Lab Results 10/05/23 Range/Units 10:08 Influenza Type A (PCR) NEGATIVE (Negative) Influenza Type B (PCR) NEGATIVE (Negative) RSV RNA Qual (PCR) NEGATIVE (Negative) SARS-CoV-2 RNA (RT-PCR) NEGATIVE (Negative) External Record Review External record reviewed: Outpatient record, Prior outpatient labs and Prior outpatient radiology Tests considered The following testing was considered but not selected: Consider CT scan of the head however improved with medications Prescription Management I considered prescription management with: Pain Medication Chronic Conditions Patient?s care impacted by: Hypertension and Other (Migraines, bipolar) Critical Care Time Critical Care Time Critical Care Time: No Discharge Plan Discharge Clinical Impression: Migraine Patient Disposition: Home, Self-Care Instructions: Migraine Headache (ED) Additional Instructions: take the prescribed medication as needed for migraine follow up with your doctor If you develop new or worsening symptoms call 911 or come back to the ER for further evaluation. Prescriptions: New umndfpjets-avttkegpswyjc-ijck 50-325-40 mg tablet 1 tab PO Q6H PRN (Reason: pain) Qty: 6 0RF No Action omeprazole 20 mg capsule,delayed release(DR/EC) 20 mg PO DAILY Qty: 30 5RF amoxicillin-pot clavulanate 875-125 mg tablet 1 tab PO BID 5 Days Qty: 10 0RF ibuprofen 600 mg tablet 600 mg PO Q6H PRN (Reason: pain) Qty: 30 0RF acetaminophen [Tylenol 8 Hour] 650 mg tablet extended release 650 mg PO Q8H PRN (Reason: pain) Qty: 30 0RF quetiapine [Seroquel] 50 mg tablet 50 mg PO DAILY lamotrigine 100 mg tablet 100 mg PO DAILY lisinopril 40 mg tablet 40 mg PO QAM levothyroxine 137 mcg tablet 137 mcg PO QAM rosuvastatin 5 mg tablet 5 mg PO QAM gabapentin 300 mg capsule 300 mg PO TID CombiPatch 0.05-0.14 mg/24 hr patch semiweekly 1 patch topical 2XW hydrochlorothiazide 25 mg tablet 25 mg PO QAM lidocaine 5 % adhesive patch,medicated topical Interventions: ED Discharge Assessment Last Done: 10/05/23 13:23 Discharge Date/Time: 10/05/23 13:24 Print Language: Indonesian
[2023-10-05 11:04] LABS: Influenza A PCR NEGATIVE (Negative); Influenza B PCR NEGATIVE (Negative); Resp Syncy Virus RNA Qual PCR NEGATIVE (Negative); SARS COV2 PCR INHOUSE NEGATIVE (Negative)
[2023-10-05] MEDS: diphenhydrAMINE HCL 50 MG/ML VIAL IVPUSH (11:18)
[2023-10-05] MEDS: 0.9 % Sodium Chloride 1,000 ML 999 ML IVCONT (11:18)
[2023-10-05] MEDS: Metoclopramide HCl 10 MG/2 ML VIAL IVPUSH (11:19)
--- NOTE | 2023-10-05 11:22 | PC.NURSE ---
20gIV placed in the left AC - patent/intact. IVF/medication administered per provider order. effectiveness pending.
[2023-10-05 13:23] VITALS: BP 132/67; PULSE 96; RESP 16; TEMP 37; O2SAT 97
== END 2023-10-05 13:24 | disposition home or self-care (01) ==
PROVIDERS: Emergency Provider Student in an Organized Health Care Education/Training Program; PCP General Practice
DX: G43.909 Migraine, unspecified, not intractable, without status migrainosus (principal); R11.2 Nausea with vomiting, unspecified; F17.210 Nicotine dependence, cigarettes, uncomplicated; Z79.899 Other long term (current) drug therapy; Z11.52 Encounter for screening for COVID-19; Z20.822 Contact with and (suspected) exposure to COVID-19
CPT/HCPCS: 0241U; 96361; 96374; 96375; 99284; 99285; J1200; J2765

== ENCOUNTER 2023-11-26 08:42 | Outpatient (REF) | payer MEDICAID, SELFPAY | END 2023-11-26 08:43 | disposition home or self-care (01) | LOC: HO.MRI 08:42 | PROVIDERS: PCP General Practice; Visit Provider General Practice | DX: Z13.89 Encounter for screening for other disorder (principal) ==

== ENCOUNTER 2024-06-08 08:58 | Emergency (ER) | payer MEDICAID, SELFPAY ==
--- NOTE | ~2024-06-08 | XR_ITS ---
EXAMINATION: XR THORACIC SPINE CLINICAL INFORMATION: pain, fall COMPARISON: None available. TECHNIQUE: 3 views of the thoracic spine were obtained. FINDINGS: Mild motion degradation on the lateral projection, mildly limiting sensitivity. There is no fracture, compression deformity, or suspicious bone lesion seen. The vertebral alignment is normal. There is minimal diffuse disc space narrowing. There is no abnormality of the paraspinal soft tissues. Imaged lungs appear clear. Imaged cardiac and mediastinal contours are normal. There are surgical clips within the right neck and abutting the right trachea at the thoracic inlet. XR/XR thoracic spine 3V IMPRESSION: No acute thoracic findings. Electronically signed by: Deejay Pittman MD 06/08/2024 10:27 AM [facility]
--- NOTE | ~2024-06-08 | XR_ITS ---
EXAMINATION: XR LUMBOSACRAL SPINE CLINICAL INFORMATION: fall COMPARISON: No priors available. MRI lumbar spine images 08/10/2010 are not available for direct comparison. The report is available. Correlation made with chest x-ray 12/10/2017. TECHNIQUE: Three views of the lumbosacral spine. FINDINGS: There is a minimal levoconvex scoliosis. There is a mildly exaggerated lordosis. There is a mild chronic appearing wedge compression deformity of the superior endplate of L1 with minimal loss of height. There is a prominent Schmorl's node in the superior endplate of T12. Sagittal alignment demonstrates a 3 mm degenerative retrolisthesis of L1 on L2. Alignment is otherwise anatomic. Titanium disc cages are present at L3-4 and L4-5 with associated abutting surgical clips anterior to the spine. No hardware complication. Moderate degenerative disc changes at the nonsurgical levels. There are degenerative sclerotic facet changes spanning L2-S1. No discrete soft tissue abnormalities. Cholecystectomy clips noted. XR/XR lumbar spine 2-3V IMPRESSION: 1. No acute fracture or traumatic subluxation of the lumbar spine. 2. Minimal chronic compression deformity superior endplate L1, unchanged from a chest x-ray dating 2017. 3. Postoperative fusion with titanium disc cages L3-4 and L4-5. 4. Degenerative spondylosis. Electronically signed by: Deejay Pittman MD 06/08/2024 10:33 AM [facility]
[2024-06-08 09:18] VITALS: BP 156/79; PULSE 93; RESP 20; TEMP 36.1; O2SAT 97; BMI 34.2
--- NOTE | 2024-06-08 09:21 | ECG_ITS ---
Test Reason : syncope Blood Pressure : */* mmHG Vent. Rate : 87 BPM Atrial Rate : 87 BPM P-R Int : 172 ms QRS Dur : 88 ms QT Int : 390 ms P-R-T Axes : 53 -17 33 degrees QTcB Int : 469 ms Normal sinus rhythm Possible Left atrial enlargement Cannot rule out Anterior infarct , age undetermined Abnormal ECG When compared with ECG of 12-Oct-2018 17:11, MI interval has decreased Minimal criteria for Anterior infarct are now Present Referred By: Generic ED Physician Electronically Signed By: Nikita Mcdonough
[2024-06-08 10:02] LABS: MANUAL DIFF FLAG NO
[2024-06-08 10:05] LABS: Basophils Percent Auto 0.3 % (0-2); Eosinophils Absolute Auto 0.2 X10*3/uL (0.0-0.4); Eosinophils Percent Auto 2.9 % (0-4); Hematocrit 42.1 % (37.0-47.0); Hemoglobin 13.6 g/dl (12.0-16.0); Imm Gran Abs Auto 0.02 X10*3/uL (0.00-0.03); Imm Gran Pct Auto 0.3 % (0.0-0.4); Lymphocytes Absolute Auto 2.2 X10*3/uL (1.2-4.9); Lymphocytes Percent Auto 37.1 % (20-40); Mean Corpuscular HGB Conc 32.3 g/dl (31.0-35.0); Mean Corpuscular Hemoglobin 26.3 pg (27.0-33.0); Mean Corpuscular Volume 81.4 fL (80.0-98.0); Mean Platelet Volume 8.9 fL (9.4-12.3); Monocytes Absolute Auto 0.5 X10*3/uL (0.1-1.2); Monocytes Percent Auto 7.9 % (2-11); Neutrophils Absolute Auto 3.1 x10*3/uL (2.0-8.3); Neutrophils Percent Auto 51.5 % (45-73); Platelet Count 356 X10*3/uL (160-400); Red Blood Count 5.17 X10*6/uL (4.20-5.50); Red Cell Distribution Width 14.7 % (11.0-16.0)
[2024-06-08 10:26] LABS: Alanine Aminotransferase 9 U/L (0-31); Alkaline Phosphatase 84 U/L (39-117); Anion Gap 9 (12-20); Aspartate Amino Transferase 13 U/L (5-31); Bilirubin Total 0.3 mg/dL (0.0-1.0); Blood Urea Nitrogen 13 mg/dL (9-16); Calcium 10.2 mg/dL (8.4-10.2); Carbon Dioxide 31 mmol/L (22-29); Chloride 109 mmol/L (96-108); Creatinine Clr Calc Pharmacy 67.6; Estimated Glomerular Filt Rate > 60; Glucose Random 129 mg/dL (60-115); Potassium 4.6 mmol/L (3.3-5.1); Sodium 144 mmol/L (135-145); Total Protein 7.1 g/dL (6.5-8.0)
== END 2024-06-08 12:10 | disposition left against medical advice (07) ==
PROVIDERS: Emergency Provider Emergency Medicine; PCP General Practice
DX: R42 Dizziness and giddiness (principal); Z91.81 History of falling
CPT/HCPCS: 36415; 72072; 72100; 80053; 85025; 93005; 99281; 99283

== ENCOUNTER → 2024-06-08 09:21 | Outpatient (BNV) | payer MEDICAID, SELFPAY | PROVIDERS: Emergency Provider Emergency Medicine; PCP General Practice; Visit Provider Internal Medicine Cardiovascular Disease | DX: R94.31 Abnormal electrocardiogram [ECG] [EKG] (principal) | CPT/HCPCS: 93010 ==

== ENCOUNTER → 2024-06-08 10:06 | Outpatient (BNV) | payer MEDICAID, SELFPAY | PROVIDERS: PCP General Practice; Visit Provider Radiology Diagnostic Radiology | DX: M47.896 Other spondylosis, lumbar region (principal); M54.6 Pain in thoracic spine; W19.XXXA Unspecified fall, initial encounter | CPT/HCPCS: 72072; 72100 ==

== ENCOUNTER 2024-07-22 11:18 | Outpatient (REF) | payer MEDICAID, SELFPAY ==
--- OUTSIDE RECORDS SUMMARY | 2024-07-22 13:41 | XMS_ITS | Clinical Summary ---
Author Organization Unknown Care Team Providers Care Mathematics Teacher Name Role Phone DAVID BABCOCK, VANESA Unavailable Unavailable KWESI MCKEON, LISS Unavailable Unavailable Payers Payer Name Policy Type Policy Number Effective Date Expira tion Date MEDICAID [facility] [id number] Problems Condition Name Condition Details Condition Category Status Onset Date Resolution Date Last Treatment Date Treating Clinician Comments BIPOLAR DISORDER, UNSPECIFIED Active 2018-05 00:00: 00 ESSENTIAL (PRIMARY) HYPERTENSION Active 05-26 00:00: 00 PERSONAL HISTORY OF OTHER SPECIFIED CONDITIONS Active 12-31 00:00: 00 MIGRAINE W/O AURA, NOT INTRACTABLE, W/O STATUS MIGRAINOSUS Active 2023-05 00:00: 00 HYPOTHYROIDI SM, UNSPECIFIED Active 2023-05 00:00: 00 BILATERAL PRIMARY OSTEOARTHRIT IS OF KNEE Active 2023-05 00:00: 00 GASTRO-ESOPH AGEAL REFLUX DISEASE WITHOUT ESOPHAGITIS Active 2023-05 00:00: 00 CANNABIS USE, UNSPECIFIED, UNCOMPLICATE D Active 2023-05 00:00: 00 COCAINE DEPENDENCE, IN REMISSION Active 2023-05 00:00: 00 Allergies, Adverse Reactions, Alerts Allergy Name Allergy Type Status Severity Reaction(s) Onset Date Inactive Date Treating Clinician Comments SILICONE Propensity to adverse reactions Active 11-09 11:01: 52 PEACHES Propensity to adverse reactions Active 11-09 11:02: 01 CELEXA Propensity to adverse reactions Active 11-09 11:01: 36 CITALOPRAM Propensity to adverse reactions Active 2023-05 23:45: 28 CELECOXIB Propensity to adverse reactions Active 2023-05 23:46: 04 Medications Ordered Medication Name Filled Medication Name Start Date Stop Date Current Medication? Ordering Clinician Indication Dosage Frequency Signature (SIG) Comments Components diclofenac sodium 75 mg tablet,cristi yed release 1-03 00:00: 12-28 23:59 :00 No [id number] 75 mg 2 TIMES DAILY 75 mg 2 TIMES DAILY (route: oral) Med Classific ation: Analgesic , Anti-infl ammatory or Antipyret ic hydrochloro thiazide 25 mg tablet 09-02 00:00: 00 06-28 23:59 :00 No [id number] 2 mg DAILY 2 mg DAILY (route: oral) Med Classific ation: Cardiovas cular Therapy Agents lamotrigine 150 mg tablet 11-30 00:00: 00 Yes [id number] 150 mg 2 TIMES DAILY 150 mg 2 TIMES DAILY (route: oral) Med Classific ation: Central Nervous System Agents levothyroxi ne 137 mcg tablet 09-02 00:00: 00 Yes [id number] 137 mcg DAILY 137 mcg DAILY (route: oral) Med Classific ation: Endocrine lisinopril 40 mg tablet 09-02 00:00: 00 12-12 23:59 :00 No [id number] 40 mg DAILY 40 mg DAILY (route: oral) Med Classific ation: Cardiovas cular Therapy Agents nabumetone 500 mg tablet 09-13 00:00: 00 12-28 23:59 :00 No [id number] 500 mg 2 TIMES DAILY 500 mg 2 TIMES DAILY (route: oral) Med Classific ation: Analgesic , Anti-infl ammatory or Antipyret ic naproxen 500 mg tablet 527 00:00: 00 12-28 23:59 :00 No [id number] 500 mg EVERY 12 HOURS 500 mg EVERY 12 HOURS (route: oral) Med Classific ation: Analgesic , Anti-infl ammatory or Antipyret ic amlodipine 5 mg tablet 09-02 00:00: 00 Yes [id number] 5 mg DAILY 5 mg BERTO Y (route: oral) Med Classific ation: Cardiovas cular Therapy Agents pantoprazol e 40 mg tablet,cristi yed release 910 00:00: 00 08-24 23:59 :00 No [id number] 40 mg 2 TIMES DAILY 40 mg 2 TIMES DAILY (route: oral) Med Classific ation: Gastroint estinal Therapy Agents pravastatin 40 mg tablet 2018-05 0-16 00:00: 00 04-08 23:59 :00 No [id number] 40 mg BEDTIME 40 mg BEDTIME (route: oral) Med Classific ation: Cardiovas cular Therapy Agents ProAir HFA 90 mcg/actuati on aerosol inhaler 09-29 00:00: 00 Yes [id number] 90 puff NEEDED 90 puff A S NEEDED (route: inhalation ) Med Classific ation: Respirato ry Therapy Agents Seroquel 50 mg tablet 2018-05 00:00: 00 11-09 23:59 :00 No [id number] 50 mg NEEDED 50 mg NEEDED (route: oral) Med Classific ation: Central Nervous System Agents Seroquel 100 mg tablet 2018-05 00:00: 00 11-09 23:59 :00 No [id number] 100 mg BEDTIME 100 mg BEDTIME (route: oral) Med Classific ation: Central Nervous System Agents sumatriptan 100 mg tablet 09-02 00:00: 00 11-09 23:59 :00 No [id number] 100 mg NEEDED 100 mg NEEDED (route: oral) Med Classific ation: Central Nervous System Agents tramadol 50 mg tablet 4 00:00: 00 12-17 23:59 :00 No [id number] 50 mg EVERY 8 HOURS NEEDED 50 mg EVERY 8 HOURS NEEDED (route: oral) Med Classific ation: Analgesic , Anti-infl ammatory or Antipyret ic Vitamin D3 50 mcg (2,000 unit) tablet 09-02 00:00: 00 11-09 23:59 :00 No [id number] 2000 tablet DAILY 2000 tablet DAILY (route: oral) Med Classific ation: Electroly te Balance-N utritiona l Products Vraylar 4.5 mg capsule 10-20 00:00: 00 06-28 23:59 :00 No [id number] 4.5 mg DAILY 4.5 mg DAILY (route: oral) Med Classific ation: Central Nervous System Agents Vraylar 6 mg capsule 2-03 00:00: 00 Yes [id number] 6 mg DAILY 6 mg BERTO Y (route: oral) Med Classific ation: Central Nervous System Agents omeprazole 20 mg capsule,del ayed release 4-01 00:00: 00 Yes [id number] 20 mg DAILY 20 mg DAILY (route: oral) Med Classific ation: Gastroint estinal Therapy Agents diphenhydra mine 25 mg capsule 01-29 00:00: 00 11-09 23:59 :00 No [id number] 50 mg BEDTIME 50 mg BEDTIME (route: oral) Med Classific ation: Respirato ry Therapy Agents melatonin 3 mg tablet 01-29 00:00: 00 11-09 23:59 :00 No [id number] 3 mg BEDTIME 3 mg BEDTIME (route: oral) Med Classific ation: Central Nervous System Agents nicotine (polacrilex ) 2 mg buccal lozenge 4-13 00:00: 00 11-09 23:59 :00 No [id number] 2 mg EVERY 2 HOURS 2 mg EVERY 2 HOURS (route: buccal) Med Classific ation: Chemical Dependenc y, Agents to Treat famotidine 40 mg tablet 11-09 00:00: 00 Yes 1 tablet BEDTIME 1 tablet BEDTIME (route: oral) Med Classific ation: Gastroint estinal Therapy Agents gabapentin 300 mg capsule 11-09 00:00: 00 04-08 23:59 :00 No 1 capsule 3 TIMES DAILY 1 capsule 3 TIMES DAILY (route: oral) Med Classific ation: Central Nervous System Agents hydrochloro thiazide 25 mg tablet 11-09 00:00: 00 Yes 1 tablet DAILY 1 tablet DAILY (route: oral) Med Classific ation: Cardiovas cular Therapy Agents lisinopril 40 mg tablet 11-09 00:00: 00 Yes 1 tablet DAILY 1 tablet DAILY (route: oral) Med Classific ation: Cardiovas cular Therapy Agents pravastatin 40 mg tablet 11-09 00:00: 00 02-26 23:59 :00 No 1 tablet BEDTIME 1 tablet BEDTIME (route: oral) Med Classific ation: Cardiovas cular Therapy Agents rosuvastati n 5 mg tablet 11-09 00:00: 00 Yes 1 tablet BEDTIME 1 tablet BEDTIME (route: oral) Med Classific ation: Cardiovas cular Therapy Agents Vitamin D3 25 mcg (1,000 unit) tablet 11-09 00:00: 00 Yes 1 tablet DAILY 1 tablet DAILY (route: oral) Med Classific ation: Electroly te Balance-N utritiona l Products amitriptyli ne 10 mg tablet 12-17 00:00: 00 06-29 23:59 :00 No 1 tablet BEDTIME 1 tablet BEDTIME (route: oral) Med Classific ation: Central Nervous System Agents sumatriptan 25 mg tablet 12-17 00:00: 00 01-14 23:59 :00 No Per instruc tions NEEDED Per instructio ns NEEDED (route: oral) Med Classific ation: Central Nervous System Agents rizatriptan 5 mg disintegrat ing tablet 01-14 00:00: 00 Yes 1 tablet DIRECTED 1 tablet DIRECTED (route: oral) Med Classific ation: Central Nervous System Agents Seroquel 200 mg tablet 01-28 00:00: 00 02-26 23:59 :00 No 1 tablet 2 TIMES DAILY 1 tablet 2 TIMES DAILY (route: oral) Med Classific ation: Central Nervous System Agents acetaminoph en 325 mg tablet 2023-05 00:00: 00 Yes 2 tablet EVERY 8 HOURS 2 tablet EVERY 8 HOURS (route: oral) Med Classific ation: Analgesic , Anti-infl ammatory or Antipyret ic albuterol sulfate HFA 90 mcg/actuati on aerosol inhaler 2023-05 0 00:00: 00 Yes 2 puff EVERY 4 HOURS 2 puff EVERY 4 HOURS (route: inhalation ) Med Classific ation: Respirato ry Therapy Agents CombiPatch 0.05 mg-0.14 mg/24 hr transdermal 2023-05 0- 00:00: 00 Yes 1 patch, transde rmal semiwee kly DIRECTED 1 patch, transderma l semiweekly DIRECTED (route: transderma l) Med Classific ation: Endocrine Seroquel 200 mg tablet 2023-05 0 00:00: 00 04-08 23:59 :00 No 1 tablet BEDTIME 1 tablet BEDTIME (route: oral) Med Classific ation: Central Nervous System Agents Seroquel 50 mg tablet 2023-05 009 00:00: 00 04-08 23:59 :00 No 1-2 tablet BEDTIME 1-2 tablet BEDTIME (route: oral) Med Classific ation: Central Nervous System Agents clonidine HCl 0.1 mg tablet 2023-05 00:00: 00 Yes 0.5 tablet BEDTIME 0.5 tablet BEDTIME (route: oral) Med Classific ation: Cardiovas cular Therapy Agents gabapentin 300 mg capsule 2023-05 00:00: 00 Yes 1 capsule 2 TIMES DAILY 1 capsule 2 TIMES DAILY (route: oral) Med Classific ation: Central Nervous System Agents Seroquel 200 mg tablet 2023-05 00:00: 00 Yes 1 tablet 2 TIMES DAILY 1 tablet 2 TIMES DAILY (route: oral) Med Classific ation: Central Nervous System Agents Alphagan P 0.1 % eye drops 07-01 00:00: 00 Yes 1 drops DAILY 1 drops DAILY (route: ophthalmic (eye)) Med Classific ation: Ophthalmi c Agents varenicline 0.5 mg (11)-1 mg (42) tablets in a dose pack 07-01 00:00: 00 Yes 1 tablet 2 TIMES DAILY 1 tablet 2 TIMES DAILY (route: oral) Med Classific ation: Chemical Dependenc y, Agents to Treat Angeliq 0.5 mg-1 mg tablet 07-07 00:00: 00 Yes 1 tablet DAILY 1 tablet DAILY (route: oral) Med Classific ation: Endocrine Vital Signs Vital Name Observation Time Observation Value Commen ts Temperature 2024-07-07 17:41:00.000 97.6 [degF] Pulse 2024-07-07 17:41:00.000 88 /min Respirations 2024-07-07 17:41:00.000 16 /min Systolic Blood Pressure 2024-07-07 17:41:00.000 140 mm [Hg] Diastolic Blood Pressure 2024-07-07 17:41:00.000 88 mm [Hg] Plan of Treatment Planned Activity Planned Date Details Comments Future Scheduled Test SKILLED NU RSE TO EVALUATE PATIENT, IDENTIFY PRIMARY AND CO-MORBID CONDITIONS CODED PER CODING GUIDELINES, AND DEVELOP PATIENT SPECIFIC PLAN OF CARE THAT INCLUDES PATIENT GOAL FOR HOME HEALTH. [code = SKILLED NURSE TO EVALUATE PATIENT, IDENTIFY PRIMARY AND CO-MORBID CONDITIONS CODED PER CODING GUIDELINES, AND DEVELOP PATIENT SPECIFIC PLAN OF CARE THAT INCLUDES PATIENT GOAL FOR HOME HEALTH.] Future Scheduled Test SKILLED NU RSE WILL MAINTAIN SITUATIONAL AWARENESS FOR SAFETY AND WILL NOTIFY CLINICAL HAND CELL TUBER AND PHYSICIAN/PROVIDER WITH ANY CHANGE IN CONDITION. [code = SKILLED NURSE WILL MAINTAIN SITUATIONAL AWARENESS FOR SAFETY AND WILL NOTIFY CLINICAL HAND CELL TUBER AND PHYSICIAN/PROVIDER WITH ANY CHANGE IN CONDITION.] Future Scheduled Test SKILLED NU RSE TO ASSESS PATIENTS PSYCHOSOCIAL STATUS TO IDENTIFY POTENTIAL ISSUES THAT MAY COMPLICATE THE PROVISION OF THE PLAN OF CARE INCLUDING THE PATIENTS ABILITY TO ACCESS COMMUNITY RESOURCES AND PSYCHOSOCIAL SUPPORT SERVICES. [code = SKILLED NURSE TO ASSESS PATIENTS PSYCHOSOCIAL STATUS TO IDENTIFY POTENTIAL ISSUES THAT MAY COMPLICATE THE PROVISION OF THE PLAN OF CARE INCLUDING THE PATIENTS ABILITY TO ACCESS COMMUNITY RESOURCES AND PSYCHOSOCIAL SUPPORT SERVICES.] Future Scheduled Test SKILLED NU RSE TO PERFORM HOME SAFETY AND FALL ASSESSMENT AND PROVIDE INSTRUCTION TO IMPLEMENT HOME SAFETY AND FALL PREVENTION STRATEGIES. [code = SKILLED NURSE TO PERFORM HOME SAFETY AND FALL ASSESSMENT AND PROVIDE INSTRUCTION TO IMPLEMENT HOME SAFETY AND FALL PREVENTION STRATEGIES.] Future Scheduled Test SKILLED NU RSE TO O/A OF PATIENTS MENTAL/BEHAVIORAL STATUS, ASSESS VITAL SIGNS EACH VISIT ALLOW 2 PRNS FOR MEDICATION MANAGEMENT. [code = SKILLED NURSE TO O/A OF PATIENTS MENTAL/BEHAVIORAL STATUS, ASSESS VITAL SIGNS EACH VISIT ALLOW 2 PRNS FOR MEDICATION MANAGEMENT.] Future Scheduled Test SKILLED NU RSE TO REVIEW PATIENT MEDICATIONS. INSTRUCT PATIENT/CAREGIVER ON MONITORING OF EFFECTIVENESS, ADVERSE DRUG REACTIONS, SIDE EFFECTS OF ALL MEDICATIONS (PRESCRIPTION/-OTC), AND HOW AND WHEN TO REPORT PROBLEMS. [code = SKILLED NURSE TO REVIEW PATIENT MEDICATIONS. INSTRUCT PATIENT/CAREGIVER ON MONITORING OF EFFECTIVENESS, ADVERSE DRUG REACTIONS, SIDE EFFECTS OF ALL MEDICATIONS (PRESCRIPTION/-OTC), AND HOW AND WHEN TO REPORT PROBLEMS.] Future Scheduled Test SKILLED NU RSE TO PRE-POUR MEDICATION PER MEDICATION LIST EVERY 2 WEEKS [code = SKILLED NURSE TO PRE-POUR MEDICATION PER MEDICATION LIST EVERY 2 WEEKS ] Future Scheduled Test PATIENT MA Y HAVE ONE SET OF EMERGENCY MEDICATION NOT TO BE PRE-POURED ANY SOONER THAN 24 HOURS BEFORE SEVERE INCLEMENT WEATHER OR EMERGENT EVENT AND FOLLOWING SKILLED NURSE EVALUATION OF PATIENT SAFETY. [code = PATIENT MAY HAVE ONE SET OF EMERGENCY MEDICATION NOT TO BE PRE-POURED ANY SOONER THAN 24 HOURS BEFORE SEVERE INCLEMENT WEATHER OR EMERGENT EVENT AND FOLLOWING SKILLED NURSE EVALUATION OF PATIENT SAFETY.] Future Scheduled Test SKILLED NU RSE FOR O/A OF ALTERED MOOD [code = SKILLED NURSE FOR O/A OF ALTERED MOOD] Future Scheduled Test MEDICATION S WILL BE HELD AND STORED IN LOCKBOX [code = MEDICATIONS WILL BE HELD AND STORED IN LOCKBOX] Future Scheduled Test MEDICATION S WILL BE HELD AND STORED IN MEDICATION SAFE. [code = MEDICATIONS WILL BE HELD AND STORED IN MEDICATION SAFE.] Future Scheduled Test SKILLED NU RSE MAY PICKUP AND TRANSPORT MEDICATIONS [code = SKILLED NURSE MAY PICKUP AND TRANSPORT MEDICATIONS] Future Scheduled Test SKILLED NU RSE TO PROVIDE TEACHING ON SIGNS AND SYMPTOMS AND MANAGEMENT OF HYPERTENSION. [code = SKILLED NURSE TO PROVIDE TEACHING ON SIGNS AND SYMPTOMS AND MANAGEMENT OF HYPERTENSION.] Goal Patient Goal - T O STAY MEDICATION COMPLIANT TO AVOID HOSPITALIZATION Goal 2024-06-29 Patient Goal - T O STAY MEDICATION COMPLIANT TO AVOID HOSPITALIZATION Goal 2024-04-29 Patient Goal - T O STAY MEDICATION COMPLIANT TO AVOID HOSPITALIZATION Goal 2024-01-01 Patient Goal - STAY MED COMP LIANT Goal 2023-10-30 Patient Goal - STAY MED COMP LIANT Goal 2023-09-03 Patient Goal - STAY MED COMP LIANT Goal 2023-07-03 Patient Goal - STAY MED COMP LIANT Goal 2023-05-06 Patient Goal - STAY MED COMP LIANT Goal 2023-01-07 Patient Goal - STAY MED COMP LIANT Goal 2023-03-04 Patient Goal - STAY MED COMP LIANT Goal 2024-02-27 Patient Goal - STAY MED COMP LIANT Goal Provider Goal - A PLAN OF CARE WILL BE ESTABLISHED THAT MEETS PATIENT'S PENITENTIARY NEEDS AND INCLUDES PATIENT GOAL FOR HOME HEALTH. Goal Provider Goal - PATIENT WILL REMAIN SAFE IN THE COMMUNITY AND WILL BE FREE OF DANGER TO SELF AND OTHERS THROUGHOUT THE CERTIFICATION PERIOD. Goal Provider Goal - PSYCHOSOCIAL NEEDS WILL BE IDENTIFIED AND PLAN IMPLEMENTED TO MINIMIZE RISK THROUGHOUT CERTIFICATION PERIOD. Goal Provider Goal - PATIENT/CAREGIVER WILL VERBALIZE/DEMONSTRATE EFFECTIVE HOME SAFETY AND FALL PREVENTION STRATEGIES THROUGHOUT CERTIFICATION PERIOD. Goal Provider Goal - ALTERED MENTAL/BEHAVIORAL STATUS WILL BE IDENTIFIED PROMPTLY AND INTERVENTION INITIATED QUICKLY TO MINIMIZE ASSOCIATED RISKS THROUGHOUT CERTIFICATION PERIOD. Goal Provider Goal - PATIENT/CAREGIVER WILL VERBALIZE UNDERSTANDING OF EDUCATION PROVIDED ON MEDICATIONS BY THE END OF THE CERTIFICATION PERIOD. Goal Provider Goal - PATIENT WILL COMPLY WITH MEDICATION WHEN SKILLED NURSE PRE-POURS MEDICATION THROUGHOUT CERTIFICATION PERIOD. Goal Provider Goal - MEDICATION WILL BE AVAILABLE DURING INCLEMENT WEATHER OR EMERGENT EVENT THROUGHOUT CERTIFICATION PERIOD. Goal Provider Goal - PATIENT WILL BE ABLE TO PERFORM DAILY FUNCTIONS AND HAVE OPTIMAL IMPROVEMENT IN MOOD STABILITY THROUGHOUT CERTIFICATION PERIOD. Goal Provider Goal - MEDICATION WILL BE STORED IN LOCKBOX FOR SAFETY. Goal Provider Goal - MEDICATIONS WILL BE STORED IN MEDICATION SAFE FOR SAFETY. Goal Provider Goal - SKILLED NURSE PICKED UP AND TRANSPORTED MEDICATIONS FOR SAFETY. Goal Provider Goal - PATIENT/CAREGIVER WILL VERBALIZE SIGNS AND SYMPTOMS OF HYPERTENSION AND WILL BE ABLE TO DEMONSTRATE ABILITY TO MANAGE EXACERBATION BY END OF THE EPISODE. Encounters Start Date/Time End Date/Time Encounter Type Admission Type Attending [facility] Care Department Encounter ID Discharge Date Discharge Status Discharge Condition Discharge Reason Percent Goals Met 2022-11-09 00:00:00 2024-08-29 00:00:00 Outpatient RECERTIFIC [facility] [id number]
--- OUTSIDE RECORDS SUMMARY | 2024-07-22 13:41 | XMS_ITS | Encounter Summary ---
Author Organization [employer] Address [address] [facility] [address] [place] [address] Care Team Providers Care Oil Pipe Inspector Helper Name Role Phone Arely Almendarez MD Primary Care Provider [phone] Encounter Details Date Type Department Care Team (Late st Contact Info) Description 12/13/2022 Orders Only [facility] MEDICINE [address] [place], [place] [phone] Arely Almendarez MD [address] [place], [place] [phone] Tobacco use Social History Tobacco Use Types Packs/Day Years Used Date Smoking Tobacco: Every Day Cigarettes Smokeless Tobacco: Never Alcohol Use Standard Drinks/Week Comments Yes 0 (1 standard drink = 0.6 oz pur e alcohol) Depression Answer Date Recorded Patient Health Questionnaire-2 Score 0 09/23/2022 Comments Unknown Sex and Gender Information Value Date Recorded Sex Assigned at Female 03/25/2022 10:14 AM EDT Legal Sex Female 10:14 AM EDT Gender Identity Female 03/25/2022 10:14 AM EDT Sexual Orientation Straight 03/25/2022 10 :14 AM EDT documented as of this encounter Plan of Treatment Not on file documented as of this encounter Visit Diagnoses Diagnosis Tobacco use documented in this encounter Care Teams Oil Pipe Inspector Helper Relationship Specialty Start Date End Date Arely Almendarez MD [address] [place], [place] [phone] PCP - General Family Medicine 07/04/22 Mark Etienne 11/09/22 documented as of this encounter
--- OUTSIDE RECORDS SUMMARY | 2024-07-22 13:41 | XMS_ITS | Encounter Summary ---
Author Organization [facility] Address [address] [facility] [address] [place] [address] Care Team Providers Care Transfer Iron Operator Name Role Phone Arely Almendarez MD Primary Care Provider [phone] Encounter Details Date Type Department Care Team (Late st Contact Info) Description 09/30/2022 Abstract [facility] MEDICINE [address] [place], [place] [phone] Arely Almendarez MD [address] [place], [place] [phone] Social History Tobacco Use Types Packs/Day Years [...] Orientation Straight 03/25/2022 10 :14 AM EDT COVID-19 Exposure Response Date Recorded In the last 10 days, have yo u been in contact with someone who was confirmed or suspected to have Coronavirus/COVID-19? No / Unsure 09/23/2022 8:43 AM EDT documented as of this encounter Plan of Treatment Not on file documented as of this encounter Visit Diagnoses Not on filedocumented in this encounter Care Teams Transfer Iron Operator Relationship Specialty Start Date End Date Arely Almendarez MD [address] [place] [address] PCP - General Family Medicine 07/04/22 Mark Etienne 11/09/22 documented as of this encounter
--- OUTSIDE RECORDS SUMMARY | 2024-07-22 13:41 | XMS_ITS | Encounter Summary ---
Author Organization [facility] Address [address] [facility] [address] [place] [phone] Care Team Providers Care Gear Hobber Operator Name Role Phone Arely Almendarez MD Primary Care Provider [phone] Encounter Details Date Type Department Care Team (Late st Contact Info) Description 07/04/2022 Abstract [facility] MEDICINE [address] [place] [address] Montse Sauceda MD Social History Tobacco Use Types Packs/Day Years Used Date Smoking Tobacco: Never Assessed Comments Unknown Sex and Gender Information Value [...] on filedocumented in this encounter Care Teams Gear Hobber Operator Relationship Specialty Start Date End Date Arely Almendarez MD [address] [place] [address] PCP - General Family Medicine 07/04/22 Mark Etienne 11/09/22 documented as of this encounter
--- OUTSIDE RECORDS SUMMARY | 2024-07-22 13:41 | XMS_ITS | Encounter Summary ---
Author Organization [facility] Address [address] [facility] [address] [place] [address] Care Team Providers Care Getter Filler Name Role Phone Arely Almendarez MD Primary Care Provider [phone] Encounter Details Date Type Department Care Team (Late st Contact Info) Description 01/28/2023 Abstract [facility] MEDICINE [address] [place], [place] [phone] Arely Almendarez MD [address] [place], [place] [phone] Social History Tobacco Use Types Packs/Day Years [...] on filedocumented in this encounter Care Teams Getter Filler Relationship Specialty Start Date End Date Arely Almendarez MD [address] [place], [place] [phone] PCP - General Family Medicine 07/04/22 Mark Etienne 11/09/22 documented as of this encounter
--- OUTSIDE RECORDS SUMMARY | 2024-07-22 13:41 | XMS_ITS | Encounter Summary ---
Author Organization [employer] Address [address] [facility] [address] [place] [address] Care Team Providers Care Ecommerce Merchandising Manager Name Role Phone Arely Almendarez MD Primary Care Provider [phone] Encounter Details Date Type Department Care Team (Late st Contact Info) Description 12/06/2022 Orders Only [facility] MEDICINE [address] [place], [place] [phone] Arely Almendarez MD [address] [place], [place] [phone] Social History Tobacco Use Types Packs/Day Years [...] on filedocumented in this encounter Care Teams Ecommerce Merchandising Manager Relationship Specialty Start Date End Date Arely Almendarez MD [address] [place], [place] [phone] PCP - General Family Medicine 07/04/22 Mark Etienne 11/09/22 documented as of this encounter
--- OUTSIDE RECORDS SUMMARY | 2024-07-22 13:41 | XMS_ITS | Encounter Summary ---
Author Organization [employer] [facility] Address [address] [facility] [address] [place] [phone] Care Team Providers Care Residential Lawn Specialist Name Role Phone Arely Almendarez MD Primary Care Provider [phone] Encounter Details Date Type Department Care Team (Late st Contact Info) Description 07/04/2022 Abstract [facility] MEDICINE [address] [place] [address] Montse Sauceda MD Social History Tobacco Use [...] on filedocumented in this encounter Care Teams Residential Lawn Specialist Relationship Specialty Start Date End Date Arely Almendarez MD [address] [place] [address] PCP - General Family Medicine 07/04/22 Mark Etienne 11/09/22 documented as of this encounter
--- OUTSIDE RECORDS SUMMARY | 2024-07-22 13:41 | XMS_ITS | Encounter Summary ---
Author Organization [employer] Address [address] [place] [address] Care Team Providers Care Surface Logging Systems Logger Name Role Phone Arely Almendarez MD Primary Care Provider [phone] Encounter Details Date Type Department Care Team (Late st Contact Info) Description 01/12/2024 Orders Only [facility] MEDICINE [address] [place], [place] [phone] Arely Almendarez MD [address] [place], [place] [phone] Social History Tobacco Use Types Packs/Day Years Used Date Smoking Tobacco: Every Day Cigarettes Smokeless Tobacco: Never Alcohol Use Standard Drinks/Week Comments Yes 0 (1 standard drink = 0.6 oz pur e alcohol) Housing Stability Answer Date Recorded What is your housing situation today? I have conrado tony 03/12/[address] you li ve. Do you have problems with any of the following? None of the above 03/12/2023 Food Insecurity Answer Date Recorded Within the past 12 months, y ou worried that your food would run out before you got money to buy more: Never True 03/12/2023 Within the past 12 months,th e food you bought just didn't last and you didn't have enough money to get more: Never True Transportation Answer Date Recorded In the past 12 months, has l ack of transportation kept you from medical appts, meetings, work or from getting things needed for daily living? No 09/23/2023 Utilities Answer Date Recorded In the past 12 months, has t he electric, gas, oil or water company threatened to shut off services in your home? No 03/12/2023 Depression Answer Date Recorded Patient Health Questionnaire-2 [...] on filedocumented in this encounter Care Teams Surface Logging Systems Logger Relationship Specialty Start Date End Date Arely Almendarez MD [address] [place] [address] PCP - General Family Medicine 07/04/22 Mark Etienne 11/09/22 documented as of this encounter
--- OUTSIDE RECORDS SUMMARY | 2024-07-22 13:41 | XMS_ITS | Encounter Summary ---
Author Organization [employer] Address [address] [facility] [address] [place] [address] Care Team Providers Care Realtime Court Reporter Name Role Phone Arely Almendarez MD Primary Care Provider [phone] Reason for Visit * Reason Comments Med Refill Encounter Details Date Type Department Care Team ([facility] st Contact Info) Description 03/07/[address] [facility] MEDICINE [address] [place], [place] [phone] Arely Almendarez MD [address] [place], [place] [phone] Chronic knee pain, unspecified laterality Social History Tobacco Use Types Packs/Day Years Used Date Smoking Tobacco: Every Day Cigarettes Smokeless Tobacco: Never Alcohol Use Standard Drinks/Week Comments Yes 0 (1 standard drink = 0.6 oz pur e alcohol) Housing Stability Answer Date Recorded What is your housing situation today? I have conrado tony 03/02/[address] you li ve. Do you have problems with any of the following? None of the above 03/02/2023 Food Insecurity Answer Date Recorded Within the past 12 months, y ou worried that your food would run out before you got money to buy more: Never True 03/02/2023 Within the past 12 months,th e food you bought just didn't last and you didn't have enough money to get more: Never True 12/2022 Transportation Answer Date Recorded In the past 12 months, has l ack of transportation kept you from medical appts, meetings, work or from getting things needed for daily living? Yes, it has kept me from medical appointments or getting medications. 03/02/2023 Utilities Answer Date Recorded In the past 12 months, has t he electric, gas, oil or water company threatened to shut off services in your home? No 03/02/2023 Depression Answer Date Recorded Patient Health Questionnaire-2 [...] as of this encounter Visit Diagnoses Diagnosis Chronic knee pain, unspecified laterality documented in this encounter Care Teams Realtime Court Reporter Relationship Specialty Start Date End Date Arely Almendarez MD [address] [place] [id number] PCP - General Family Medicine 07/04/22 Mark Etienne 11/09/22 documented as of this encounter
--- OUTSIDE RECORDS SUMMARY | 2024-07-22 13:41 | XMS_ITS | Encounter Summary ---
Author Organization [email or web address] [facility] Address [address] [facility] [address]t [place] [address] Care Team Providers Care Towing Pilot Name Role Phone Arley Almendarez MD Primary Care Provider [phone] Reason for Visit * Reason Onset Date Comments Nurse Triage 12/11/2022 Encounter Details Date Type Department Care Team ([facility] st Contact Info) Description 12/11/[address] [facility] MEDICINE [address] [place], [place] [phone] Arely Almendarez MD [address] [place], [place] [phone] Nurse Triage Social History Tobacco Use Types Packs/Day Years [...] AM EDT documented as of this encounter Miscellaneous Notes * Telephone Encounter - Milagros Gao RN - 12/11/2022 1:36 PM EDT Triage call Pt reports a skin lump on top of head that has been there for years. PT reports it is nickel size, red, hard ball , tender to touch, not itchy and no fever. Pt is advised to come to [facility] today but, reports will be there at 830am tomorrow 12/12. Protocol Used: Skin Lump or Localized Swelling (Adult) Protocol-Based Disposition: See in Office or Video Visit Today Override (Final) Disposition: See in Office or Video Visit Today or Tomorrow Override Reason: Other Video visit not offered Positive Triage Question: * Swelling is painful to touch and no fever * All higher-acuity triage questions were negative Care Advice Discussed: * Reasons To Call Back - Fever occurs - Spreading redness occurs - Swelling becomes painful - Swelling persists over 1 week - You become worse * Telephone Encounter - Tahlia Crowley - 12/11/2022 1:26 PM EDT Symptom: Skin Lump on top of her head Outcome: Schedule an appointment to be seen within 3 days Reason: Caller denied all higher acuity questions The caller accepted this outcome documented in this encounter Plan of Treatment Not on file documented as of this encounter Visit Diagnoses Not on filedocumented in this encounter Care Teams Towing Pilot Relationship Specialty Start Date End Date Arely Almendarez MD [address] [place] [address] PCP - General Family Medicine 07/04/22 Mark Etienne 11/09/22 documented as of this encounter
--- OUTSIDE RECORDS SUMMARY | 2024-07-22 13:41 | XMS_ITS | Encounter Summary ---
Author Organization [employer] Address [address] [place] [address] Care Team Providers Care Dumbwaiter Operator Name Role Phone Arely Almendarez MD Primary Care Provider [phone] Encounter Details Date Type Department Care Team (Late st Contact Info) Description 10/01/2023 Orders Only [facility] MEDICINE [address] [place] [address] ProviderHugh MD Social History Tobacco Use Types Packs/Day Years Used Date Smoking Tobacco: Every Day Cigarettes Smokeless Tobacco: Never Alcohol Use Standard Drinks/Week Comments Yes 0 (1 standard drink = 0.6 oz pur e alcohol) Housing Stability Answer Date Recorded What is your housing situation today? I have conradoelton tony 03/12/[address] you [...] on file documented as of this encounter Procedures Procedure Name Priority Date/Time Associated Diagnosis Comments HM COLONOSCOPY Routine 10/03/2016 9:17 AM EDT documented in this encounter Results * Hm Colonoscopy (10/03/2016 9:17 AM EDT) Historical Provider HEALTH MAINTENANCE Final Result documented in this encounter Visit Diagnoses Not on filedocumented in this encounter Care Teams Dumbwaiter Operator Relationship Specialty Start Date End Date Arely Almendarez MD [address] [place] [address] PCP - General Family Medicine 07/04/22 Mark Etienne 11/09/22 documented as of this encounter
--- OUTSIDE RECORDS SUMMARY | 2024-07-22 13:41 | XMS_ITS | Encounter Summary ---
Author Organization [employer] Address [address] [facility] 7t [place] [address] Care Team Providers Care Peoplesoft Name Role Phone Arely Almendarez MD Primary Care Provider Encounter Details Date Type Department Care Team (Late st Contact Info) Description 10/25/2022 Orders Only [facility] MEDICINE [address] [place], [place] [phone] Arely Almendarez MD [address] [place], [place] [phone] Chronic pain of both knees Social History Tobacco Use Types Packs/Day Years [...] of this encounter Visit Diagnoses Diagnosis Chronic pain of both knees documented in this encounter Care Teams Peoplesoft Relationship Specialty Start Date End Date Arely Almendarez MD [address] [place] [id number] PCP - General Family Medicine 07/04/22 Mark Etienne 11/09/22 documented as of this encounter
--- OUTSIDE RECORDS SUMMARY | 2024-07-22 13:41 | XMS_ITS | Clinical Summary ---
Author Organization Unknown Care Team Providers Care Speech Correction Consultant Name Role Phone DAVID BABCOCK, VANESA Unavailable Unavailable KWESI MCKEON, LISS Unavailable Unavailable Payers Payer Name Policy Type Policy Number Effective Date Expira tion Date MEDICAID [facility] [id number] Problems Condition Name Condition Details Condition Category [...] release 1-03 00:00: 12-28 23:59 :00 No [id number] 75 mg 2 TIMES DAILY 75 mg 2 TIMES DAILY (route: oral) Med Classific ation: Analgesic , Anti-infl ammatory or Antipyret ic hydrochloro thiazide 25 mg tablet 09-02 00:00: 00 06-28 23:59 :00 No [id number] 2 mg DAILY 2 mg DAILY (route: oral) Med Classific ation: Cardiovas cular Therapy Agents lamotrigine 150 mg tablet 11-30 00:00: 00 Yes [id number] 150 mg 2 TIMES DAILY 150 mg 2 TIMES DAILY (route: oral) Med Classific ation: Central Nervous System Agents levothyroxi ne 137 mcg tablet 09-02 00:00: 00 Yes [id number] 137 mcg DAILY 137 mcg DAILY (route: oral) Med Classific ation: Endocrine lisinopril 40 mg tablet 09-02 00:00: 00 12-12 23:59 :00 No [id number] 40 mg DAILY 40 mg DAILY (route: oral) Med Classific ation: Cardiovas cular Therapy Agents nabumetone 500 mg tablet 09-13 00:00: 00 12-28 23:59 :00 No [id number] 500 mg 2 TIMES DAILY 500 mg 2 TIMES DAILY (route: oral) Med Classific ation: Analgesic , Anti-infl ammatory or Antipyret ic naproxen 500 mg tablet 527 00:00: 00 12-28 23:59 :00 No [id number] 500 mg EVERY 12 HOURS 500 mg EVERY 12 HOURS (route: oral) Med Classific ation: Analgesic , Anti-infl ammatory or Antipyret ic amlodipine 5 mg tablet 09-02 00:00: 00 Yes [id number] 5 mg DAILY 5 mg BERTO Y (route: oral) Med Classific ation: Cardiovas cular Therapy Agents pantoprazol e 40 mg tablet,cristi yed release 910 00:00: 00 08-24 23:59 :00 No [id number] 40 mg 2 TIMES DAILY 40 mg 2 TIMES DAILY (route: oral) Med Classific ation: Gastroint estinal Therapy Agents pravastatin 40 mg tablet 2018-05 0-16 00:00: 00 04-08 23:59 :00 No [id number] 40 mg BEDTIME 40 mg BEDTIME (route: oral) Med Classific ation: Cardiovas cular Therapy Agents ProAir HFA 90 mcg/actuati on aerosol inhaler 09-29 00:00: 00 Yes [id number] 90 puff NEEDED 90 puff A S NEEDED (route: inhalation ) Med Classific ation: Respirato ry Therapy Agents Seroquel 50 mg tablet 2018-05 00:00: 00 11-09 23:59 :00 No [id number] 50 mg NEEDED 50 mg NEEDED (route: oral) Med Classific ation: Central Nervous System Agents Seroquel 100 mg tablet 2018-05 00:00: 00 11-09 23:59 :00 No [id number] 100 mg BEDTIME 100 mg BEDTIME (route: oral) Med Classific ation: Central Nervous System Agents sumatriptan 100 mg tablet 09-02 00:00: 00 11-09 23:59 :00 No [id number] 100 mg NEEDED 100 mg NEEDED (route: oral) Med Classific ation: Central Nervous System Agents tramadol 50 mg tablet 4 00:00: 00 12-17 23:59 :00 No [id number] 50 mg EVERY 8 HOURS NEEDED 50 mg EVERY 8 HOURS NEEDED (route: oral) Med Classific ation: Analgesic , Anti-infl ammatory or Antipyret ic Vitamin D3 50 mcg (2,000 unit) tablet 09-02 00:00: 00 11-09 23:59 :00 No [id number] 2000 tablet DAILY 2000 tablet DAILY (route: oral) Med Classific ation: Electroly te Balance-N utritiona l Products Vraylar 4.5 mg capsule 10-20 00:00: 00 06-28 23:59 :00 No [id number] 4.5 mg DAILY 4.5 mg DAILY (route: oral) Med Classific ation: Central Nervous System Agents Vraylar 6 mg capsule 2-03 00:00: 00 Yes [id number] 6 mg DAILY 6 mg BERTO Y (route: oral) Med Classific ation: Central Nervous System Agents omeprazole 20 mg capsule,del ayed release 4-01 00:00: 00 Yes [id number] 20 mg DAILY 20 mg DAILY (route: oral) Med Classific ation: Gastroint estinal Therapy Agents diphenhydra mine 25 mg capsule 01-29 00:00: 00 11-09 23:59 :00 No [id number] 50 mg BEDTIME 50 mg BEDTIME (route: oral) Med Classific ation: Respirato ry Therapy Agents melatonin 3 mg tablet 01-29 00:00: 00 11-09 23:59 :00 No [id number] 3 mg BEDTIME 3 mg BEDTIME (route: oral) Med Classific ation: Central Nervous System Agents nicotine (polacrilex ) 2 mg buccal lozenge 4-13 00:00: 00 11-09 23:59 :00 No [id number] 2 mg EVERY 2 HOURS 2 mg [...] AWARENESS FOR SAFETY AND WILL NOTIFY CLINICAL SECURITY SERVICES SPECIALIST AND PHYSICIAN/PROVIDER WITH ANY CHANGE IN CONDITION. [code = SKILLED NURSE WILL MAINTAIN SITUATIONAL AWARENESS FOR SAFETY AND WILL NOTIFY CLINICAL SECURITY SERVICES SPECIALIST AND PHYSICIAN/PROVIDER WITH ANY CHANGE IN CONDITION.] [...] AND SYMPTOMS AND MANAGEMENT OF HYPERTENSION.] Goal 2023-03-04 Patient Goal - STAY MED COMP LIANT Goal 2023-01-07 Patient Goal - STAY MED COMP LIANT Goal 2023-05-06 Patient Goal - STAY MED COMP LIANT Goal 2023-07-03 Patient Goal - STAY MED COMP LIANT Goal 2023-09-03 Patient Goal - STAY MED COMP LIANT Goal 2023-10-30 Patient Goal - STAY MED COMP LIANT Goal 2024-01-01 Patient Goal - STAY MED COMP LIANT Goal 2024-02-27 Patient Goal - STAY MED COMP LIANT Goal 2024-04-29 Patient Goal - T O STAY MEDICATION COMPLIANT TO AVOID HOSPITALIZATION Goal 2024-06-29 Patient Goal - T O STAY MEDICATION COMPLIANT TO AVOID HOSPITALIZATION Goal Patient Goal - T O STAY MEDICATION COMPLIANT TO AVOID HOSPITALIZATION Goal Provider Goal - A PLAN OF CARE WILL BE ESTABLISHED THAT MEETS PATIENT'S SHELTER NEEDS AND INCLUDES PATIENT GOAL FOR HOME [...] End Date/Time Encounter Type Admission Type Attending [facility] Care Department Encounter ID Discharge Date Discharge Status Discharge Condition Discharge Reason Percent Goals Met 2022-11-09 00:00:00 2024-08-29 00:00:00 Outpatient RECERTIFIC [facility] [id number]
--- OUTSIDE RECORDS SUMMARY | 2024-07-22 13:41 | XMS_ITS | Encounter Summary ---
Author Organization [email or web address] Address [address] [facility] [address] 7t [place] [address] Care Team Providers Care Respiratory Care Faculty Name Role Phone Arely Almendarez MD Primary Care Provider [phone] Reason for Visit * Reason Comments Med Refill Encounter Details Date Type Department Care Team ([facility] st Contact Info) Description 06/24/2023 Refill [facility] MEDICINE [address] [place], [place] [phone] Arely Almendarez MD [address] [place], [place] [phone] Essential hypertension Social History Tobacco Use Types Packs/Day Years [...] as of this encounter Visit Diagnoses Diagnosis Essential hypertension Unspecified essential hypertension documented in this encounter Care Teams Respiratory Care Faculty Relationship Specialty Start Date End Date Arely Almendarez MD [address] [place] [address] PCP - General Family Medicine 07/04/22 Mark Etienne 11/09/22 documented as of this encounter
--- OUTSIDE RECORDS SUMMARY | 2024-07-22 13:42 | XMS_ITS | Encounter Summary ---
Author Organization [employer] Address [address] [facility] [address] 7t [place] [address] Care Team Providers Care Digital Media Specialist Name Role Phone Arely Almendarez MD Primary Care Provider [phone] Reason for Visit * Reason Comments Med Refill Encounter Details Date Type Department Care Team ([facility] st Contact Info) Description 05/11/2024 Refill [facility] MEDICINE [address] [place], [place] [phone] Arely Almendarez MD [address] [place], [place] [phone] Social History Tobacco Use Types Packs/Day Years Used Date Smoking Tobacco: Every Day Cigarettes Smokeless Tobacco: Never Alcohol Use Standard Drinks/Week Comments Yes 0 (1 standard drink = 0.6 oz pur e alcohol) Depression Answer Date Recorded Patient Health Questionnaire-9 Score 5 04/28/2024 Patient Health Questionnaire-9 Score 5 04/28/2024 Last PHQ-9: Questionnaire Data Not on file 1 06/29/2023 Housing Stability Answer Date Recorded What is [...] Answer Date Recorded Patient Health Questionnaire-2 Score 2 04/28/2024 Comments Unknown Sex and Gender Information Value Date Recorded Sex Assigned at Female 03/25/2022 10:14 AM EDT Legal Sex Female 10:14 AM EDT Gender Identity Female 03/25/2022 10:14 AM EDT Sexual Orientation Straight 03/25/2022 10 :14 AM EDT documented as of this encounter Plan of Treatment Not on file documented as of this encounter Visit Diagnoses Not on filedocumented in this encounter Additional Health Concerns Assessment Noted Time PHQ-9 Depression Total Score: 5 04/28/20 24 11:26 AM EST documented as of this encounter Care Teams Digital Media Specialist Relationship Specialty Start Date End Date Arely Almendarez MD [address] [place] [address] PCP - General Family Medicine 07/04/22 Mark Etienne 11/09/22 documented as of this encounter
--- OUTSIDE RECORDS SUMMARY | 2024-07-22 13:42 | XMS_ITS | Encounter Summary ---
Author Organization [employer] Address [address] [facility] 7t [place] [address] Care Team Providers Care Tube Tester Name Role Phone Arely Almendarez MD Primary Care Provider [phone] Reason for Visit * Reason Onset Date Comments Nurse Triage 07/14/2024 Encounter Details Date Type Department Care Team ([facility] st Contact Info) Description 07/14/2024 Telephone [facility] MEDICINE [address] [place], [place] [phone] Arely Almendarez MD [address] [place], [place] [phone] Nurse Triage Social History Tobacco Use Types [...] is your housing situation today? I have ocnrado tony 03/12/[address] you [...] Telephone Encounter - Milagros Gao RN - 07/14/2024 12:02 PM EST Triage call Pt reports falling 4 times this week. 15,16,17,18 all on the same left knee. Pt fell on ice leaving apartment x1, no snap/pop heard. Pt reports knee felt like it gave way once or twice prior to fall. Pt reports scrape on the knee which has been cleaned and covered at home. Pt reportssome swelling/redness. Pt did apply ice and continues to do so with good effect. Pt is taking tylenol for pain. Pt is able to ambulate without difficulty but, pain has shifted to low back neg for numbness. Pt reports receiving cortisone injection in left knee about 2 months ago. Pt is advised to alternate ice/heat, keep leg up while sitting and rest as much as possible. Pt agrees with home care advised. ASK apt with [facility] 07/16/24. Pt agrees with disposition. Insurance is verifed as active prior to booking. Protocol Used: Knee Injury (Adult) Protocol-Based Disposition: See in Office or Video Visit within 3 Days Video visit offer not recorded Positive Triage Questions: * Injury and pain has not improved after 3 days * Knee giving way (or buckling) when walking * All higher-acuity triage questions were negative Care Advice Discussed: * Reassurance and Education - Direct Blow (Minor Bruise, Contusion) * Treatment of Mild Contusions (Such as a Direct Blow to Knee Area) * Use a Cold Pack for Pain, Swelling, or Bruising * Use Heat on Area After 48 Hours * Rest vs. Movement * Expected Course * Reasons To Call Back - Pain becomes severe - Pain does not improve after 3 days - Pain or swelling lasts more than 2 weeks - You become worse * Telephone Encounter - Kapil Marcelo - 07/14/2024 11:11 AM EST Symptoms: Knee Pain - Not From Injury, Back Pain - Not From Injury Outcome: Schedule an urgent appointment (within 1 hour) or talk to a nurse or provider soon Reason: Severe pain now The caller accepted this outcome. Contact pt at [phone] documented in this encounter Plan of Treatment Not on file documented as of this encounter Visit Diagnoses Not on filedocumented in this encounter Additional Health Concerns Assessment Noted Time PHQ-9 Depression Total Score: 5 04/28/20 24 11:26 AM EST documented as of this encounter Care Teams Tube Tester Relationship Specialty Start Date End Date Arely Almendarez MD [address] [place] [id number] PCP - General Family Medicine 07/04/22 Mark Etienne 11/09/22 documented as of this encounter
--- OUTSIDE RECORDS SUMMARY | 2024-07-22 13:42 | XMS_ITS | Clinical Summary ---
Author Organization [employer] Address [address] [place] [address] Care Team Providers Care Advertising Sales Assistant Name Role Phone Arely Almendarez MD Primary Care Provider [phone] Allergies Active Allergy Reactions Criticality Noted Date Comments Celecoxib 01/17/2012 Citalopram Hives 07/29/2022 Silicon Hives 09/18/2016 Silicone Hives Medium 07/29/2022 Medications famotidine (Pepcid) 40 MG tabletIndications:Rashard roesophageal reflux disease without esophagitis take 1 tablet by oral route every day at bedtime 90 tablet 2022 Active QUEtiapine (SEROquel) 50 MG tablet TAKE 1 TO 2 TABLETS BY MOUTH AT BEDTIME NEEDED 2021 Active QUEtiapine (SEROquel) 200 MG tablet Take 200 mg by mouth if needed at bedtime. 2022 Active Lidocaine HCl 3 % cream Apply topically every 12 (twelve) hours. 2021 Active lamoTRIgine (LaMICtal) 150 MG tablet Take 1 tablet by mouth 2 times daily. 2022 Active Vraylar 6 MG capsule Take 1 capsule by mouth in the morning. 2022 Active Ventolin HFA 108 (90 Base) MCG/ACT inhalerIndications:Mil d persistent asthma without complication Inhale 2 puffs by mouth into the lungs every 4 to 6 hours as needed 18 g 3 2022 Active rosuvastatin (Crestor) 5 MG tabletIndications:Mixe d hypercholesterolemia and hypertriglyceridemia Take 1 tablet (5 mg) by mouth Once per day. 90 tablet 3 2023 Active levothyroxine (Synthroid, Levoxyl) 137 MCG tabletIndications:Acqu ired hypothyroidism Take 137 mcg by mouth Once per day. 90 tablet 3 2023 Active amitriptyline (Elavil) 10 MG tablet Take 1 tablet (10 mg) by mouth at bedtime. To PREVENT migraines 90 tablet 3 09/25 Active butalbital-acetaminoph en-caffeine 50-325-40 MG tablet Take 1 tablet by mouth every 6 (six) hours if needed. 2023 Active Diclofenac Sodium (Voltaren) 1 % gel Apply 1 Application topically 2 times daily. 100 g 11 2023 Active amLODIPine (Norvasc) 5 MG tabletIndications:Esse ntial hypertension TAKE 1 TABLET BY MOUTH EVERY DAY 90 tablet 3 2023 Active cholecalciferol (Vitamin D-3) 25 MCG (1000 UT) tabletIndications:Sera min D deficiency TAKE 1 TABLET BY MOUTH EVERY MORNING 90 tablet 3 2023 Active omeprazole (PriLOSEC) [address] capsule TAKE 1 CAPSULE BY MOUTH EVERY MORNING 90 capsule 3 2023 Active brimonidine (AlphaGAN P) 0.1 % ophthalmic solution Instill 1 drop in each eye daily as needed for ptosis. 5 mL 6 2023 Active dextran 70-hypromellose (artificial tears) 0.1-0.3 % ophthalmic solution Administer 1 drop into both eyes 4 times daily. 15 mL 6 03/11 Active drospirenone-estradiol (Angrliq) 0.5-1 MG tablet Take 1 tablet by mouth Once per day. 90 tablet 3 05/13 Active rizatriptan (Maxalt) 5 MG tablet TAKE 1 TABLET BY MOUTH AT ONSET OF MIGRAINE. MAY REPEAT ONCE AFTER 2 HOURS IF NEEDED DO NOT EXCEED 6 TABLETS PER 24 HOURS 9 tablet 3 2024 Active Varenicline Tartrate, Starter, (Chantix Starting Month ) 0.5 MG X 11 & 1 MG X 42 tablet therapy pack Take 0.5 mg by mouth Once daily for 3 days, THEN 0.5 mg 2 times daily for 4 days, THEN 1 mg 2 times daily for 21 days. 1 each 2024 Active lisinopril 40 MG tabletIndications:Esse ntial hypertension TAKE 1 TABLET BY MOUTH EVERY DAY 90 tablet 3 2024 Active hydroCHLOROthiazide (HYDRODiuril) 25 MG tabletIndications:Esse ntial hypertension TAKE 1 TABLET BY MOUTH EVERY MORNING 90 tablet 3 2024 Active gabapentin (Neurontin) 400 MG capsule Take 1 capsule (400 mg) by mouth 2 times daily. 60 capsule 3 07/22 Active lidocaine (Lidoderm) 5 % patch APPLY 1 PATCH BY TRANSDERMAL ROUTE EVERY DAY IF NEEDED FOR PAIN (MAY WEAR UP TO 12 HOURS) 30 patch 11 2024 Active acetaminophen (Tylenol 8 Hour) 650 MG ER tabletIndications:Migr joey without aura, not refractory Take 1 tablet (650 mg) by mouth every 8 (eight) hours if needed for mild pain. 40 tablet 1 2024 Active baclofen (Lioresal) 10 MG tablet Take 1 tablet (10 mg) by mouth if needed in the morning and at bedtime for muscle spasms. 60 tablet 1 09/20 Active methylPREDNISolone (Medrol Dospak) 4 MG tablets Follow schedule on package instructions 21 tablet 07/29 Active naproxen (Naprosyn) 500 MG tablet Take 1 tablet (500 mg) by mouth if needed in the morning and at bedtime for mild pain. 30 tablet 07/22 Active lidocaine (Lidoderm) 5 % patch APPLY 1 PATCH BY TRANSDERMAL ROUTE EVERY DAY IF NEEDED FOR PAIN (MAY WEAR UP TO 12 HOURS) 30 patch 11 07/22 Discontinued( Reorder (will not trigger notification to Pharmacy)) acetaminophen (Tylenol 8 Hour) 650 MG ER tabletIndications:Migr joey without aura, not refractory Take 650 mg by mouth every 8 (eight) hours if needed. 07/22 Discontinued( Reorder (will not trigger notification to Pharmacy)) gabapentin (Neurontin) 300 MG capsule Take 300 mg by mouth 2 times daily. 07/22 Discontinued( Dose adjustment) Active Problems Problem Noted Date Diagnosed Date Acute pain of left knee 05/03/2024 Assessment & Plan (05/03/2024 6:29 PM EST): Swelling, no moment of injury Pt has hx benefited from injection will see Dr. Benavides tomorrow Films ordered DME brace given for knee stability in iterim Knee swelling 05/03/2024 Osteoarthritis of left knee 05/03/2024 Bilateral carpal tunnel syndrome 02/02/2024 Assessment & Plan (02/02/2024 12:54 PM EDT): Wrist splints Diclofenac ordered Mild persistent asthma without complication 12/2023 Screening for cervical cancer 04/30/2023 Hot flashes due to menopause 04/03/2023 Assessment & Plan (10/01/2023 10:44 AM EDT): On HRT, combined therapy due to intact uterus Not controlling hot flashes currently Assessment & Plan (04/03/2023 12:30 PM EST): Will discuss management with HRT at pap appointment Chronic pain of both knees 09/23/2022 Assessment & Plan (04/03/2023 12:30 PM EST): On Tramadol for this previously 50mg TID Will restart, have her start with [employer] on red team Goals of prescribing and limitations of pain meds If she cannot come to [employer] appointments or has illicit substances in her urine again, we will stop the medication Assessment & Plan (09/23/2022 11:03 AM EDT): On Tramadol for this previously 50mg TID Will restart, have her start with [employer] on red team Goals of prescribing and limitations of pain meds Tobacco use 09/23/2022 Assessment & Plan (10/01/2023 10:44 AM EDT): She is not interested in quitting currently Mixed hypercholesterolemia and hypertriglyceride becka 12/11/2016 Assessment & Plan (10/01/2023 10:44 AM EDT): Continue Crestor 5mg daily Lipids annually Vitamin D deficiency 12/11/2016 Prediabetes 06/26/2016 Assessment & Plan (10/01/2023 10:45 AM EDT): Will check A1C Last two years have been less than 6.5 Acquired hypothyroidism 11/14/2015 Assessment & Plan (10/01/2023 10:45 AM EDT): Continue Synthroid 137mcg daily Assessment & Plan (09/23/2022 11:01 AM EDT): Continue Synthroid 137mcg daily Bipolar I disorder 11/14/2015 Assessment & Plan (10/01/2023 10:45 AM EDT): Continue medications per psych Essential hypertension 11/14/2015 Assessment & Plan (04/03/2023 12:31 PM EST): At goal at home per pt, uncontrolled today, asymptomatic Maintenance: Lisinopril, HCTZ BMP: Lipid Panel: ASCVD Risk: Calculate pending updated labs EKG: Obtain baseline at f/u - Aerobic exercise to reduce BP. Initial goal of 30 min walk 3-5x/week. Increase as tolerated. - low-sodium diet (goal: <2g/day) and heart healthy diet such as DASH to reduce BP and prevent ASCVD. - Home BP monitoring 1-2 x day with goal of <140/90. - Seek immediate medical attention for chest pain, palpitations, SOB, syncope, or sudden changes in mental status. - Do not change or discontinue current prescriptions without first consulting health care provider Assessment & Plan (09/23/2022 11:01 AM EDT): At goal at home per pt Maintenance: Lisinopril, HCTZ BMP: Lipid Panel: ASCVD Risk: Calculate pending updated labs EKG: Obtain baseline at f/u - Aerobic exercise to reduce BP. Initial goal of 30 min walk 3-5x/week. Increase as tolerated. - low-sodium diet (goal: <2g/day) and heart healthy diet such as DASH to reduce BP and prevent ASCVD. - Home BP monitoring 1-2 x day with goal of <140/90. - Seek immediate medical attention for chest pain, palpitations, SOB, syncope, or sudden changes in mental status. - Do not change or discontinue current prescriptions without first consulting health care provider Migraine without aura, not refractory 11/14/2015 Assessment & Plan (10/17/2023 1:18 PM EDT): Continue Elavil nightly 10mg, increase to 25mg at next visit if frequency still > 2 times weekly MRI without contrast due to changing nature and frequency of migraine headaches Neurology consult Assessment & Plan (10/01/2023 10:43 AM EDT): Continue meds per psych Will add Elavil at nighttime for prophy and Imitrex for abortive treatment Assessment & Plan (09/23/2022 11:01 AM EDT): Continue meds per psych Encounters Date Type Department Care Team Description 07/22/2024 10:00 AM EST Office Visit [facility] [address] [place] [address] Leni Carney DO Acute right-sided low back pain with right-sided sciatica (Primary Dx); Migraine without aura, not refractory 07/22/2024 Refill [facility] [address] [place] [address] Arely Almendarez MD 07/14/2024 Telephone [facility] [address] [place] [address] Arely Almendarez MD Nurse Triage 06/15/2024 Refill [facility] [address] [place] [address] Arely Almendarez MD Essential hypertension 06/09/2024 Orders Only [facility] [address] [place] [address] Arely Almendarez MD 06/09/2024 Refill [facility] [address] [place] [address] Arely Almendarez MD 06/08/2024 Orders Only GENERIC EXTERNAL DATA DEPARTMENT Provider, Generic External Data 06/07/2024 Telephone [facility] [address] [place] [address] Arely Almendarez MD 06/07/2024 Telephone [facility] [address] [place] [phone] Arely Almendarez MD Medication Question 05/11/2024 Refill [facility] [address] [place] [phone] Arely Almendarez MD 05/11/2024 Refill [facility] [address] [place] [phone] Arely Almendarez MD 05/05/2024 10:00 AM EST Office Visit [facility] OPT[facility] [address] [place] [phone] Meño, Mirela, OD Presbyopia (Primary Dx) 05/05/2024 Travel 05/04/2024 9:30 AM EST Procedure Visit [facility] [address] [place] [phone] Nasima Benavides MD Primary osteoarthritis of left knee (Primary Dx) 05/04/2024 Travel 05/03/2024 11:20 AM EST Office Visit [facility] [address] [place] [phone] Virgen Shabazz NP Acute pain of left knee (Primary Dx); Knee swelling; Osteoarthritis of left knee, unspecified osteoarthritis type; Migraine without aura, not refractory 05/03/2024 Telephone [facility] [address] [place] [phone] Arely Almendarez MD telephone call 04/29/[address] [phone] Arely Almendarez MD FYI/Medication question 04/29/2024 Telephone [facility] [address] [place] [phone] Arely Almendarez MD FYI 04/29/2024 Telephone [facility] [address] [place] [phone] Ana Cheung RN 04/28/2024 11:30 AM EST Telemedicine [address] [address] Arely Almendarez MD Hot flashes due to menopause (Primary Dx); Migraine without aura, not refractory 04/28/2024 Travel from Last 3 Months Immunizations Name Administration Dates Next Due Hep A, Adult 10/03/2017,11/14/2015 Hep B, adult 03/01/2016,11/14/2015,02/02/2009 Influenza injectable quadriv alent IIV4 with preservative 03/31/2017,05/08/2015 Influenza injectable quadriv alent preservative free 06/26/2016 Influenza, IIV3, injectable 05/02/2011 Influenza, Split (incl. cielo fied surface antigen) 07/20/2013 Pneumococcal Polysaccharide PPSV23 12/26/2020 TD (adult), 2 Lf tetanus tox oid, preservative free, adsorbed 04/01/2005 Tdap 06/20/2022,07/20/2013 Zoster, Recombinant 01/02/2021,11/01/2020 Social History Tobacco Use Types Packs/Day Years Used Date Smoking Tobacco: Every Day Cigarettes Passive Smoke Exposure: Current Smokeless Tobacco: Never Tobacco Cessation:Ready to Q uit: Not Asked; Counseling Given: Not Answered Alcohol Use Standard Drinks/Week Comments Yes 0 [...] Orientation Straight 03/25/2022 10 :14 AM EDT Last Filed Vital Signs Vital Sign Reading Time Taken Comments Blood Pressure 138/88 07/22/2024 11:03 AM EST Pulse 105 07/22/2024 10:14 AM EST Temperature 36.6 ??C (97.8 ??F) 07/22/2024 10:[address] Respiratory Rate 24 07/22/2024 10:14 AM EST Oxygen Saturation 96% 07/22/2024 10:14 AM EST Inhaled Oxygen Concentration - - Weight 86.7 kg (191 lb 2 oz) 07/22/2024 10:14 AM EST Height 160 cm (5' 3 ) 07/22/2024 10:14 AM EST Body Mass Index 33.86 07/22/2024 10:14 AM EST Plan of Treatment Health Maintenance Due Date Last Done Comments CT Colonography 1964 FIT DNA/Cologuard 1965 FIT 1965 FOBT 1965 Sigmoidoscopy 1965 Alcohol/Substance Use Screening 1976 Colonoscopy 10/03/2017 10/03/2016 Colorectal Cancer Screening 10/03/2017 Pneumococcal Vaccine: 50+ Years (2 of 2 - PCV) 12/26/2021 12/26/2020 Mammogram 06/22/2023 06/22/2021, 09/24, 10/02/2017 COVID-19 Vaccine ( season) 2024 07/18/2021, 08/24/2020, 07/27/2020 Influenza Vaccine (#1) 2024 7, 06/26/2016, 05/08/2015, Additional history exists SDOH Screening 09/22/2024 09/23/2023 Diabetes: Hemoglobin A1C 09/29/2024 024, 03/19/2022, 12/27/2020 Depression Screening 04/28/2025 04/28/2024, 04/28/20 24 Tobacco Screening 07/22/2025 07/22/2024 Pap Smear 04/30/2026 04/30/2023 Cervical Cancer Screening 04/30/2028 HPV/Cotest 04/30/2028 04/30/2023 Lipid Panel 09/29/2028 09/30/2023, 02/24, 12/27/2020 DTaP/Tdap/Td Vaccines (3 - Td or Tdap) 06/20/2032 06/20/2022, 07/20/2013, 04/01/2005 RSV Patients and Patients Aged 60 years or older (1 - 1-dose 75+ series) 08/08/2039 Hepatitis B Vaccines Completed 03/01/2016, 11/14/2015, 02/02/2009 Hepatitis A Vaccines Aged Out 10/03/2017, 11/14/19 16 No longer eligible based on patient's age to complete this topic Zoster Vaccines Completed 01/02/2021, 11/01/2020 HIV Screening Completed 09/30/2023 Hepatitis C Screening Completed 09/30/2023 HIB Vaccines Aged Out No longer eligi ble based on patient's age to complete this topic HPV Vaccines Aged Out No longer eligi ble based on patient's age to complete this topic IPV Vaccines Aged Out No longer eligi ble based on patient's age to complete this topic Meningococcal Vaccine Aged Out No jessica mario eligible based on patient's age to complete this topic RSV under 20 months Aged Out No longe r eligible based on patient's age to complete this topic Rotavirus Vaccines Aged Out No longer eligible based on patient's age to complete this topic Procedures Procedure Name Priority Date/Time Associated Diagnosis Comments XR LUMBAR SPINE 2-3 VIEWS Routine 06/08/2024 10:06 AM EST XR THORACIC SPINE 3 VIEWS Routine 06/08/2024 10:06 AM EST COMPREHENSIVE METABOLIC PANEL Routine 06/08/2024 9:57 AM EST CBC WITH AUTO DIFFERENTIAL Routine 06/08/2024 9:57 AM EST TX ARTHROCENTESIS ASPIR&/INJ MAJOR JT/BURSA W/O US Routine 05/04/2024 9:27 AM EST Primary osteoarthritis of left knee HEPATITIS C AB W/REFL TO HCV RNA, QN, PCR Routine 09/30/2023 11:41 AM EDT Screening examination for STI HIV 1/2 ANTIGEN/ANTIBODY, FOURTH GENERATION W/RFL Routine 09/30/2023 11:41 AM EDT Screening examination for STI HEMOGLOBIN A1C Routine 09/30/2023 11:41 AM EDT Prediabetes LIPID PANEL, STANDARD Routine 09/30/2023 11:41 AM EDT Prediabetes HPV MRNA E6/E7 REFLEX TO HPV 16, 18/45 Routine 04/30/2023 3:55 PM EST PAP SMEAR Routine 04/30/2023 3:55 PM EST MAMMOGRAM GENERIC Routine 06/22/2021 9:5 5 AM EST HM COLONOSCOPY Routine 10/03/2016 9:17 AM EDT from Last 3 Months or Most Recently Relevant to Health Maintenance Results * XR Lumbar Spine 2-3 Views (06/08/2024 10:06 AM EST) Anatomical Region Laterality Modality Spine, L-spine Radiographic Judith ging 06/08/2024 10:0 6 AM EST Narrative 06/08/2024 10:36 AM EST ? [facility] ?[address] ?[place] [address] ?XRay Report ? Signed ? Patient: Tigre,Angela ?MR#: [id number] ?? [id number] ? : 1965 ?Acct:[id number] ? Age/Sex: 58 / F ?ADM Date: 01/14/25 ? Loc: HO.ED ? Attending Dr: ? Ordering Physician: Generic ED Physician ?? Date of Service: 06/08/24 ?? Procedure(s): XR lumbar spine 2-3V ?? Accession Number(s): [id number] ? cc: Generic ED Physician; Arely Almendarez ? EXAMINATION: ?? XR LUMBOSACRAL SPINE ? CLINICAL INFORMATION: ?? fall ? COMPARISON: ?? No priors available. MRI lumbar spine images 08/10/2010 are not ?? available for direct comparison. The report is available. ?? Correlation made with chest x-ray 12/10/2017. ? TECHNIQUE: ?? Three views of the lumbosacral spine. ? FINDINGS: ?? There is a minimal levoconvex scoliosis. There is a mildly exaggerated ?? lordosis. ?? There is a mild chronic appearing wedge compression deformity of the ?? superior endplate of L1 with minimal loss of height. ?? There is a prominent Schmorl's node in the superior endplate of T12. ?? Sagittal alignment demonstrates a 3 mm degenerative retrolisthesis of ?? L1 on L2. Alignment is otherwise anatomic. ? Titanium disc cages are present at L3-4 and L4-5 with associated ?? abutting surgical clips anterior to the spine. No hardware ?? complication. ?? Moderate degenerative disc changes at the nonsurgical levels. ?? There are degenerative sclerotic facet changes spanning L2-S1. ? No discrete soft tissue abnormalities. Cholecystectomy clips noted. ? XR/XR lumbar spine 2-3V ?? IMPRESSION: ?? 1. No acute fracture or traumatic subluxation of the lumbar spine. ?? 2. Minimal chronic compression deformity superior endplate L1, ?? unchanged from a chest x-ray dating 2017. ?? 3. Postoperative fusion with titanium disc cages L3-4 and L4-5. ?? 4. Degenerative spondylosis. ? Electronically signed by: ??Deejay Pittman MD ??06/08/2024 10:33 AM EST RP ?? Work[facility]: [id number] ? Dictated By: ?Deejay Pittman MD ? Signed By: ?<Electronically signed by Deejay Pittman MD in OV> ?06/08/24 1033 ? DD/ 1006 ? TD/TT: 06/08/24 1011 ? Lead Quality Control Technician: ? Procedure Note Xin, Karen - 06/08/2024 [facility] [address] [place] [address] XRay Report Signed Patient: Angela Landeros#: [id number] : 1965Acct:[id number] Age/Sex: 58 / FADM Date: 06/08/24 Loc: HO.ED Attending Dr: Ordering Physician: Generic ED Physician Date of Service: 06/08/24 Procedure(s): XR lumbar spine 2-3V Accession Number(s): [id number] cc: Generic ED Physician; Arely Almendarez EXAMINATION: XR LUMBOSACRAL SPINE CLINICAL INFORMATION: fall COMPARISON: No priors available. MRI lumbar spine images 08/10/2010 are not available for direct comparison. The report is available. Correlation made with chest x-ray 12/10/2017. TECHNIQUE: Three views of the lumbosacral spine. FINDINGS: There is a minimal levoconvex scoliosis. There is a mildly exaggerated lordosis. There is a mild chronic appearing wedge compression deformity of the superior endplate of L1 with minimal loss of height. There is a prominent Schmorl's node in the superior endplate of T12. Sagittal alignment demonstrates a 3 mm degenerative retrolisthesis of L1 on L2. Alignment is otherwise anatomic. Titanium disc cages are present at L3-4 and L4-5 with associated abutting surgical clips anterior to the spine. No hardware complication. Moderate degenerative disc changes at the nonsurgical levels. There are degenerative sclerotic facet changes spanning L2-S1. No discrete soft tissue abnormalities. Cholecystectomy clips noted. XR/XR lumbar spine 2-3V IMPRESSION: 1. No acute fracture or traumatic subluxation of the lumbar spine. 2. Minimal chronic compression deformity superior endplate L1, unchanged from a chest x-ray dating 2017. 3. Postoperative fusion with titanium disc cages L3-4 and L4-5. 4. Degenerative spondylosis. Electronically signed by: Deejay Pittman MD 06/08/2024 10:33 AM EST Dictated By: Deejay Pittman MD Signed By: <Electronically signed by Deejay Pittman MD in OV> 06/08/24 1033 DD/ 1006 TD/TT: 06/08/24 1011 Lead Quality Control Technician: [facility] External Provider IMG XR PROCEDURES Final Result * XR Thoracic Spine 3 Views (06/08/2024 10:06 AM EST) Anatomical Region Laterality Modality Spine, T-spine Radiographic Judith ging 06/08/2024 10:0 6 AM EST Narrative 06/08/2024 10:30 AM EST ? [facility] ?[address] ?[place] [address] ?XRay Report ? Signed ? Patient: Tigre,Angela ?MR#: [id number] ?? [id number] ? : 1965 ?Acct:[id number] ? Age/Sex: 58 / F ?ADM Date: 06/08/24 ? Loc: HO.ED ? Attending Dr: ? Ordering Physician: Generic ED Physician ?? Date of Service: 06/08/24 ?? Procedure(s): XR thoracic spine 3V ?? Accession Number(s): [id number] ? cc: Generic ED Physician; Arely Almendarez ? EXAMINATION: ?? XR THORACIC SPINE ? CLINICAL INFORMATION: ?? pain, fall ? COMPARISON: ?? None available. ? TECHNIQUE: ?? 3 views of the thoracic spine were obtained. ? FINDINGS: ?? Mild motion degradation on the lateral projection, mildly limiting ?? sensitivity. ? There is no fracture, compression deformity, or suspicious bone lesion ?? seen. ?? The vertebral alignment is normal. There is minimal diffuse disc space ?? narrowing. ?? There is no abnormality of the paraspinal soft tissues. Imaged lungs ?? appear clear. Imaged cardiac and mediastinal contours are normal. ?? There are surgical clips within the right neck and abutting the right ?? trachea at the thoracic inlet. ? XR/XR thoracic spine 3V ?? IMPRESSION: ?? No acute thoracic findings. ? Electronically signed by: ??Deejay Pittman MD ??06/08/2024 10:27 AM EST RP ? Dictated By: ?Deejay Pittman MD ? Signed By: ?<Electronically signed by Deejay Pittman MD in OV> ?06/08/24 1027 ? DD/ 1006 ? TD/TT: 06/08/24 1011 ? Lead Quality Control Technician: ? Procedure Note Xin, Karen - 06/08/[address] [address] XRay Report Signed Patient: Angela LanderosMR#: [id number] : 1965Acct:[id number] Age/Sex: 58 / FADM Date: 06/08/24 Loc: .ED Attending Dr: Ordering Physician: Generic ED Physician Date of Service: 06/08/24 Procedure(s): XR thoracic spine 3V Accession Number(s): [id number] cc: Generic ED Physician; Arely Almendarez EXAMINATION: XR THORACIC SPINE CLINICAL INFORMATION: pain, fall COMPARISON: None available. TECHNIQUE: 3 views of the thoracic spine were obtained. FINDINGS: Mild motion degradation on the lateral projection, mildly limiting sensitivity. There is no fracture, compression deformity, or suspicious bone lesion seen. The vertebral alignment is normal. There is minimal diffuse disc space narrowing. There is no abnormality of the paraspinal soft tissues. Imaged lungs appear clear. Imaged cardiac and mediastinal contours are normal. There are surgical clips within the right neck and abutting the right trachea at the thoracic inlet. XR/XR thoracic spine 3V IMPRESSION: No acute thoracic findings. Electronically signed by: Deejay Pittman MD 06/08/2024 10:27 AM EST Dictated By: Deejay Pittman MD Signed By: <Electronically signed by Deejay Pittman MD in OV> 06/08/24 1027 DD/ 1006 TD/TT: 06/08/24 1011 Lead Quality Control Technician: [facility] External Provider IMG XR PROCEDURES Final Result * (ABNORMAL) CBC auto differential (06/08/2024 9:57 AM EST) White Blood Count 6.0 4.8 - 10.8 X10*3/uL [facility] Red Blood Count 5.17 4.20 - 5.50 X10*6/uL [facility] Hemoglobin 13.6 12.0 - 16.0 g/dl [facility] Hematocrit 42.1 37.0 - 47.0 % [facility] Mean Corpuscular Volume 81.4 80.0 - 98.0 fL [facility] Mean Corpuscular Hemoglobin 26.3(L) 27.0 - 33.0 pg [facility] Mean Corpuscular HGB Conc 32.3 31.0 - 35.0 g/dl [facility] Red Cell Distribution Width 14.7 11.0 - 16.0 % [facility] Platelet Count 356 160 - 400 X10*3/uL [facility] Mean Platelet Volume 8.9(L) 9.4 - 12.3 fL [facility] Neutrophils Percent Auto 51.5 45 - 73 % [facility] Imm Gran Pct Auto 0.3 0.0 - 0.4 % [facility] Lymphocytes Percent Auto 37.1 20 - 40 % [facility] Monocytes Percent Auto 7.9 2 - 11 % [facility] Eosinophils Percent Auto 2.9 0 - 4 % [facility] Basophils Percent Auto 0.3 0 - 2 % [facility] NRBC Pct Auto 0.0 0.0 - 0.2 /100WBC [facility] Neutrophils Absolute Auto 3.1 2.0 - 8.3 x10*3/uL [facility] Imm Gran Abs Auto 0.02 0.00 - 0.03 X10*3/uL [facility] Lymphocytes Absolute Auto 2.2 1.2 - 4.9 X10*3/uL [facility] Monocytes Absolute Auto 0.5 0.1 - 1.2 X10*3/uL [facility] Eosinophils Absolute Auto 0.2 0.0 - 0.4 X10*3/uL [facility] Basophils Absolute Auto 0.0 0.0 - 0.2 X10*3/uL [facility] NRBC Abs Auto 0.000 0.0 - 0.012 X10*3/uL [facility] 06/08/2024 9:57 AM EST 06/08/2024 10:00 AM EST us Generic External Data Provider LAB BLOOD ORDERAB LES Final Result [facility] [address] [place] [address] [phone] * (ABNORMAL) Comprehensive Metabolic Panel (06/08/2024 9:57 AM EST) Sodium 144 135 - 145 mmol/L [facility] Potassium 4.6 3.3 - 5.1 mmol/L [facility] Chloride 109(H) 96 - 108 mmol/L [facility] Carbon Dioxide 31(H) 22 - 29 mmol/L [facility] Anion Gap 9(L) 12 - 20 [facility] Urea Nitrogen (BUN) 13 9 - 16 mg/dL [facility] Creatinine, Serum 0.94 0.5 - 1.4 mg/dL [facility] Creatinine Clr Calc Pharmacy 67.6 [facility] Comment:Provided height and weight: 160.02 cm,87.543 kg.eGFR (calculated from the MDRD study equation) and eCrCl(calculated from the Cockcroft-Gault equation) are based ondifferent parameters and may not yield comparable results.If eCrCl result is absurd, please check patient'sheight/weight. Estimated Glomerular Filt Rate >60 [facility] Comment:Chronic Kidney Disea se: Estimated GFR < 60 mL/min/1.89k1Fkalfh Kidney Disease: Estimated GFR < 15 mL/min/1.73m2 Glucose 129(H) 60 - 115 mg/dL [facility] Calcium 10.2 8.4 - 10.2 mg/dL [facility] Bilirubin, Total 0.3 0.0 - 1.0 mg/dL [facility] Aspartate Amino Transferase 13 5 - 31 U/L [facility] Alanine Aminotransferase 9 0 - 31 U/L [facility] Total Protein 7.1 6.5 - 8.0 g/dL [facility] Albumin Level 4.0 3.5 - 5.0 g/dL [facility] Alkaline Phosphatase 84 39 - 117 U/L [facility] 06/08/2024 9:57 AM EST 06/08/2024 10:00 AM EST us Generic External Data Provider LAB BLOOD ORDERAB LES Final Result [facility] [address] [place] [address] [phone] * [place] ARTHROCENTESIS ASPIR&/INJ MAJOR JT/BURSA W/O US (05/04/2024 9:27 AM EST) Narrative Nasima Benavides MD - 05/04/2024 9:27 AM EST Nasima Benavides MD ? 05/04/2024 ??9:29 AM Arthrocentesis Date/Time: 05/04/2024 9:27 AM Performed by: Nasima Benavides MD Authorized by: Nasima Benavides MD ?? Consent: ??Consent obtained: ??Verbal and written ??Consent given by: ??Patient ??Risks, benefits, and alternatives were discussed: yes ?Risks discussed: ??Pain ??Alternatives discussed: ??Referral [place] protocol: ??Procedure explained and questions answered to patient or proxy's satisfaction: yes ?Relevant documents present and verified: yes ?Test results available: yes ?Imaging studies available: yes ?Required blood products, implants, devices, and special equipment available: yes ?Site/side marked: yes ?Immediately prior to procedure, a time out was called: yes ?Patient identity confirmed: ??Verbally with patient Location: ??Location: ??Knee ??Knee: ??L knee Anesthesia: ??Anesthesia method: ??Topical application Procedure details: ??Needle gauge: ??22 G ??Ultrasound guidance: no ?Approach: ??Lateral ??Steroid injected: yes ?Specimen collected: no ?? Post-procedure details: ??Dressing: ??Adhesive bandage ??Procedure completion: ??Tolerated us Nasima Benavides MD IN CLINIC/BEDSIDE ORDERABLES Fin al Result * Hepatitis C Antibody with Reflex to HCV, RNA, Quantitative, Real-Time PCR (09/30/2023 11:41 AM EDT) Hepatitis C Antibody Nonreactive Nonreactive [facility] Comment:Antibodies to HCV no t detected; does not exclude early acuteHCV infection. Blood Venous blood specimen / Unknown 09/30/2023 11:41 AM EDT 09/30/2023 1:16 PM EDT Arely Almendarez MD LAB BLOOD ORDERABLES Final Res ult Performing Organization Address City/[facility]/ZIP Co de Phone Number [facility] [address] [place] [address] [phone] * HIV-1/2 Antigen and Antibodies, Fourth Generation, with Reflexes (09/30/2023 11:41 AM EDT) HIV AB/AG Nonreactive Nonreactive [facility] Comment:HIV-1 p24 Ag and/or HIV-1/HIV-2 Ab not detected.A test result that is nonreactive does not exclude thepossibility of exposure to or infection with HIV-1 and/orHIV-2. Nonreactive results in this assay for individualswith prior exposure to HIV-1 and/or HIV-2 may be due toantigen and antibody levels that are below the limit ofdetection of this assay.The [employer] HIV Ag/Ab Combo assay result andsupplemental assay results should be interpreted inconjunction with the patient's clinical presentation,history and other laboratory results. If the results areinconsistent with clinical evidence, additional testing issuggested to confirm the result. Blood Venous blood specimen / Unknown 09/30/2023 11:41 AM EDT 09/30/2023 1:16 PM EDT Arely Almendarez MD LAB BLOOD ORDERABLES Final Res ult Performing Organization Address [facility]/ZIP Co de Phone Number [facility] [address] [place] [address] [phone] * (ABNORMAL) Hemoglobin A1c (09/30/2023 11:41 AM EDT) Hemoglobin A1c 6.2(H) <6.0 % [facility] Comment:Hemoglobin A1C Refer ence Range Adults: 4.8 - 6.0 % Non diabetic: < 6.0 % Goal: < 7.0 %Additional Action Suggested: > 8.0 %Note: Hemoglobin A1c results are invalid for patients with abnormal amounts of HbF. Blood transfusions may impact the HbA1c concentration in the patient sample. Estimated Average Glucose 131 mg/dL [facility] Comment:eAG = Estimated ave rage glucose which is %A1C expressed asaverage glucose, using the formula of the Q5D-HwfhztcZulfwce Glucose study (ADAG), Diabetes Care, Vol.31,#8,Dec. 2007 Blood Venous blood specimen / Unknown 09/30/2023 11:41 AM EDT 09/30/2023 1:16 PM EDT us Arely Almendarez MD LAB BLOOD ORDERABLES Final Res ult [facility] [address] [place] [phone] * Lipid Panel, Standard (09/30/2023 11:41 AM EDT) Triglycerides 134 <150 mg/dL [facility] Comment:Desirable Triglyceri de: less than 150 mg/dLBorderline High Triglyceride 150-199 mg/dLHigh Triglyceride: 200-499 mg/dLVery High Triglyceride: greater than or equal to 5OO mg/dL Cholesterol 134 <200 mg/dL [facility] Comment:Desirable Cholestero l: less than 200 mg/dLBorderline High Cholesterol: 200-239 mg/dLHigh Cholesterol: greater than 239 mg/dL LDL Cholesterol Calculated 62 <100 mg/dL [facility] Comment:Desirable LDL: less than 100 mg/dLNear Optimal/Above Optimal LDL: 110- 129 mg/dLBorderline High LDL: 130-159 mg/dLHigh LDL: 160-189 mg/dLVery High LDL: greater than or equal to 190 mg/dL HDL Cholesterol 46 >40 mg/dL [facility] Comment:Desirable HDL: great er than 40 mg/dL Note: This HDL assay may give artificially low results in patients with liver disease. Blood Venous blood specimen / Unknown 09/30/2023 11:41 AM EDT 09/30/2023 1:16 PM EDT Arely Almendarez MD LAB BLOOD ORDERABLES Final Res ult Performing Organization Address [facility] Co de Phone Number [facility] [address] [place] [address] [phone] * HPV mRNA E6/E7 w/Reflex to HPV Genotypes 16, 18/45 (04/30/2023 3:55 PM EST) HPV nRNA E6/E7 Not Detected Not Detected [facility] Comment:Methodology: Transcr iption-Mediated AmplificationThis assay detects E6/E7 viral messenger RNA (mRNA) from 14high-risk HPV types (16,18,31,33,35,39,45,51,52,56,58,59,66,68).Cervical sources are required for HPV testing.If a vaginal source from a patient who has had atotal hysterectomy with removal of cervix wassubmitted, please contact the testing laboratoryfor alternative testing options.For additional information, please refer tohttp://education.[employer]/faq/GHI783y4(This link if provided for information/educational purposes only.)THIS TEST WAS PERFORMED AT:[employer] [place] [phone] RODAS MD HPV mRNA E6/E7 [facility] HPV 16 RNA [facility] HPV 18/45 RNA [facility] 04/30/2023 3:55 PM EST 05/01/2023 8:20 AM EST Arely Almendarez MD LAB CYTOLOGY ORDERABLES Final Result Performing Organization Address City/[facility]/ZIP Co de Phone Number [facility] [address] [place] [phone] * Pap Smear (04/30/2023 3:55 PM EST) 04/30/2023 3:55 PM EST 05/01/2023 8:20 AM EST Narrative [facility] - 05/05/2023 1:42 PM EST ----- ------- Name: Angela Landeros ?Age/Sex: 57/F ? : 1965 Unit#: [id number] ?? Attend Dr: Arely Almendarez ?Re04/30/23 ?Status: DEP REF ? Location: HO.HHCLNP ? Disch: ? ----- ------- SPEC : [id number] ?RECD: 05/01/23 ? STATUS: ??SOUT ? REQ NUM: [id number] ? OMKAR: 04/30/23-234 ? SUBM DR: Arely Almendarez ? ENTERED: ??05/01/23-854 ?SP TYPE: Pap Smr ?OTHR : ? ORDERED: ??Pap Smear ? Interpretation ?? Satisfactory for evaluation. ?? Negative for intraepithelial lesion or malignancy. ?HPV mRNA E6/E7: ?NOT DETECTED ? This assay detects E6/E7 viral messenger RNA (mRNA) from 14 high-risk HPV types (16, 18, ?? 31, 33, 35, 39, 45, 51, 52, 56, 58, 59, 66, 68) ?? HPV testing performed by [facility], [place], [place]. ??See reference laboratory ?? portion of the EMR for entire report. ?Clinical Information LMP: Unknown date Previous PAP test: Unknown date. WNL ? Material Received ?? ThinPrep-Vaginal/Cervical ----- ------- Signed (signature on file) LUDA Norman (ASCP) 05/05/23 0217 ? ----- ------- ? END OF REPORT ? us Arely Almendarez MD LAB CYTOLOGY ORDERABLES Final Result Performing Organization Address City/State/[facility] Co de Phone Number [facility] [address] [place] [address] [phone] * Mammography Report 1 (06/22/2021 9:55 AM EST) Anatomical Region Laterality Modality Breast Bilateral Mammography 06/22/2021 9:55 AM EST Narrative 06/25/2021 9:46 AM EST Refer to the Notes tab for result details [facility] Procedure: Mammography Report 1 Procedure Note Provider, MD Hugh - 08/18/2022 Refer to the Notes tab for result details [facility] Procedure: Mammography Report 1 us Montse Sauceda MD IMG BI PROCEDURES Final Resu lt * Hm Colonoscopy (10/03/2016 9:17 AM EDT) us Historical Provider HEALTH MAINTENANCE Final Result from Last 3 Months or Most Recently Relevant to Health Maintenance [facility] * Guarantor: Angela Landeros Account Type Relation to Patient Date of Phone Billing Address Personal/Family Self [address] [place] Care Teams Advertising Sales Assistant Relationship Specialty Start Date End Date Arely Almendarez MD [address] [place] [phone] PCP - General Family Medicine 07/04/22 Mark Etienne 11/09/22
--- OUTSIDE RECORDS SUMMARY | 2024-07-22 13:42 | XMS_ITS | Encounter Summary ---
Author Organization [employer] Address [address] [place] [address] Care Team Providers Care Central Office Operator Supervisor Name Role Phone Arely Almendarez MD Primary Care Provider [phone] Reason for Visit * Reason Comments Med Refill Encounter Details Date Type Department Care Team ([facility] st Contact Info) Description 05/15/2023 Refill [facility] [address] [place], [place] [phone] Arely Almendarez MD [address] [facility] [place] [address] Social History Tobacco Use Types Packs/Day Years [...] on filedocumented in this encounter Care Teams Central Office Operator Supervisor Relationship Specialty Start Date End Date Arely Almendarez MD [address] [place] [address] PCP - General Family Medicine 07/04/22 Mark Etienne 11/09/22 documented as of this encounter
--- OUTSIDE RECORDS SUMMARY | 2024-07-22 13:42 | XMS_ITS | Encounter Summary ---
Author Organization [employer] Address [address] [facility] [facility] [address] [place] [address] Care Team Providers Care Clockmaker Name Role Phone Arely Almendarez MD Primary Care Provider [phone] Reason for Visit * Reason Onset Date Comments Med Refill 07/22/2024 Encounter Details Date Type Department Care Team (Late st Contact Info) Description 07/22/2024 Refill [facility] [address] [place], [place] [phone] Arely Almendarez MD [address] [facility] [place] [address] Social History Tobacco Use Types Packs/Day Years Used Date Smoking Tobacco: Every Day Cigarettes Passive Smoke Exposure: Current Smokeless Tobacco: Never Alcohol Use Standard Drinks/Week [...] documented as of this encounter Care Teams Clockmaker Relationship Specialty Start Date End Date Arely Almendarez MD [address] [place] [phone] PCP - General Family Medicine 07/04/22 Mark Etienne 11/09/22 documented as of this encounter
--- OUTSIDE RECORDS SUMMARY | 2024-07-22 13:42 | XMS_ITS | Encounter Summary ---
Author Organization [employer] Address [address] [place] [address] Care Team Providers Care Video Surveillance Technician Name Role Phone Arely Almendarez MD Primary Care Provider [phone] Encounter Details Date Type Department Care Team (Late st Contact Info) Description 06/24/2023 Orders Only [facility] [address] [place], [place] [phone] Arely Almendarez MD [address] [place], [place] [phone] Chronic knee pain, unspecified laterality Social History [...] laterality documented in this encounter Care Teams Video Surveillance Technician Relationship Specialty Start Date End Date Arely Almendarez MD [address] [place] [phone] PCP - General Family Medicine 07/04/22 Mark Etienne 11/09/22 documented as of this encounter
--- OUTSIDE RECORDS SUMMARY | 2024-07-22 13:42 | XMS_ITS | Encounter Summary ---
Author Organization [employer] Address [address] [facility] [address] [facility] [place] [address] Care Team Providers Care Elevator Runner Name Role Phone Arely Almendarez MD Primary Care Provider [phone] Encounter Details Date Type Department Care Team (Late st Contact Info) Description 06/09/2024 Orders Only [facility] [address] [place], [place] [phone] Arely Almendarez MD [address] [place], [place] [phone] Social History Tobacco Use Types Packs/Day Years [...] documented as of this encounter Care Teams Elevator Runner Relationship Specialty Start Date End Date Arely Almendarez MD [address] [place] [address] PCP - General Family Medicine 07/04/22 Mark Etienne 11/09/22 documented as of this encounter
--- OUTSIDE RECORDS SUMMARY | 2024-07-22 13:42 | XMS_ITS | Encounter Summary ---
Author Organization [employer] Address [address] [facility] [address] [place] [address] Care Team Providers Care Tape Editor Name Role Phone Arely Almendarez MD Primary Care Provider [phone] Reason for Visit * Reason Comments Med Refill Encounter Details Date Type Department Care Team ([facility] st Contact Info) Description 06/02/2023 Refill [facility] [address] [place], [place] [phone] Arely Almendarez MD [address] [place], [place] [phone] Tobacco use Social History Tobacco Use Types [...] use documented in this encounter Care Teams Tape Editor Relationship Specialty Start Date End Date Arely Almendarez MD [address] [place] [phone] PCP - General Family Medicine 07/04/22 Mark Etienne 11/09/22 documented as of this encounter
--- OUTSIDE RECORDS SUMMARY | 2024-07-22 13:42 | XMS_ITS | Encounter Summary ---
Author Organization [employer] Address [address] [place] [address] Care Team Providers Care Bread Dough Mixer Name Role Phone Arely Almendarez MD Primary Care Provider [phone] Encounter Details Date Type Department Care Team ([facility] st Contact Info) Description 07/22/2024 10:00 AM EST Office Visit [facility] [address] [place], [place] [phone] Leni Carney DO [address] [place], [place] [phone] Acute right-sided low back pain with right-sided sciatica (Primary Dx); Migraine without aura, not refractory Social History Tobacco Use Types Packs/Day Years [...] AM EDT documented as of this encounter Last Filed Vital Signs Vital Sign Reading [...] Mass Index 33.86 07/22/2024 10:14 AM EST documented in this encounter Progress Notes * Leni Carney, - 07/22/2024 10:00 AM EST SUBJECTIVE Angela Landeros is a 58 y.o. female who presents for Sick Visit. She comes to [place] c/o LBP for the last several days. She says she fell 4 times last week, twice in her home and twice outside. She says that every time she landed on her L leg. She's not sure exactly what happened, she thinks that her L knee/leg gave out. She says that a few days later she started getting severe, sharp pain on the R side of her back which has been shooting down her R leg to her knee. She says the pain is constant. She has intermittent tingling in her leg. She says that that the pain is so bad that it's hard to bend over and she has been walking with a limp. She denies any loss of bowel or bladder control. She has been taking motrin and tylenol, that she was given from a friend. She says the meds work when she takes them but she has run out of meds and has nothing for her pain. She takes gabapentin daily, but she doesn't think it works. She says she took her HTN meds this morning. 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 The current episode started in the past 7 days. The problem occurs constantly. The problem is unchanged. The pain is present in the lumbar spine. The quality of the pain is described as shooting and stabbing. The pain radiates to the right knee. The pain is severe. Associatedsymptoms include tingling. Pertinent negatives include no abdominal pain, bladder incontinence, bowel incontinence, chest pain, dysuria, fever, headaches or weakness. She has tried analgesics for thesymptoms. The treatment provided moderate relief. Review of Systems Constitutional: Negative for activity change, appetite change, chills and fever. Respiratory: Negative for cough and shortness of breath. Cardiovascular: Negative for chest pain, palpitations and leg swelling. Gastrointestinal: Negative for abdominal pain, bowel incontinence, diarrhea, nausea and vomiting. Genitourinary: Negative for bladder incontinence and dysuria. Musculoskeletal: Positive for arthralgias, back pain and gait problem. Neurological: Positive for tingling. Negative for weakness and headaches. Patient Active Problem List Diagnosis Acquired hypothyroidism Bipolar I disorder (CMS/HCC) Essential hypertension Migraine without aura, not refractory Mixed hypercholesterolemia and hypertriglyceridemia Prediabetes Vitamin D deficiency Chronic pain of both knees Tobacco use Hot flashes due to menopause Screening for cervical cancer Mild persistent asthma without complication Bilateral carpal tunnel syndrome Acute pain of left knee Knee swelling Osteoarthritis of left knee Allergies Allergen Reactions Silicone Hives Celecoxib Citalopram Hives Silicon Hives OBJECTIVE Vitals: 07/22/24 1014 07/22/24 1103 BP: (!) 151/90 138/88 BP Location: Right arm Left arm Patient Position: Sitting Sitting BP Cuff Size: Adult Adult Pulse: 105 Resp: 24 Temp: 97.8 ??F (36.6 ??C) TempSrc: Oral SpO2: 96% Weight: 191 lb 2 oz (86.7 kg) Height: 5' 3 (1.6 m) Physical Exam Constitutional: General: She is not in acute distress. Appearance: Normal appearance. Cardiovascular: Rate and Rhythm: Normal rate and regular rhythm. Heart sounds: Normal heart sounds. No murmur heard. Pulmonary: Effort: Pulmonary effort is normal. Breath sounds: Normal breath sounds. No wheezing or rhonchi. Musculoskeletal: Lumbar back: Spasms and tenderness present. No swelling, deformity or bony tenderness. Decreased range of motion. Negative right straight leg raise test and negative left straight leg raise test. Neurological: General: No focal deficit present. Mental Status: She is alert and oriented to person, place, and time. Sensory: Sensation is intact. Motor: Motor function is intact. Deep Tendon Reflexes: Reflex Scores: Patellar reflexes are 1+ on the right side and 1+ on the left side. Comments: Antalgic gait Able to toe and heel walk Psychiatric: Mood and Affect: Mood normal. Assessment/Plan Diagnoses and all orders for this visit: Acute right-sided low back pain with right-sided sciatica S/P fall with nml neuro exam, likely mechanical -referred for L-spine XR, given h/o lumbar fusion -treat with medrol dose pack -trial baclofen to help with mm spasm -change motrin to naprosyn prn, alternate with tylenol as needed -cont amitriptyline nightly -increase gabapentin to 400 mg BID -encouraged diclofenac gel -restart lidocaine patches -encouraged heat therapy -consider referral to PT if no improvement -advised contact [facility] if sx change or worsen, she agrees with plans --Follow-up with PCP as scheduled or sooner prn-- Current Outpatient Medications: acetaminophen (Tylenol 8 Hour) 650 MG ER tablet, Take 1 tablet (650 mg) by mouth every 8 (eight) hours if needed for mild pain., Disp: 40 tablet, Rfl: 1 amitriptyline (Elavil) 10 MG tablet, Take 1 tablet (10 mg) by mouth at bedtime. To PREVENT migraines, Disp: 90 tablet, Rfl: 3 amLODIPine (Norvasc) 5 MG tablet, TAKE 1 TABLET BY MOUTH EVERY DAY, Disp: 90 tablet, Rfl: 3 baclofen (Lioresal) 10 MG tablet, Take 1 tablet (10 mg) by mouth if needed in the morning and at bedtime for muscle spasms., Disp: 60 tablet, Rfl: 1 brimonidine (AlphaGAN P) 0.1 % ophthalmic solution, Instill 1 drop in each eye daily as needed for ptosis., Disp: 5 mL, Rfl: 6 gkyuapdctj-hxunmuaqgjjdw-cqvuijtj 50-325-40 MG tablet, Take 1 tablet by mouth every 6 (six) hours if needed., Disp: , Rfl: cholecalciferol (Vitamin D-3) 25 MCG (1000 UT) tablet, TAKE 1 TABLET BY MOUTH EVERY MORNING, Disp: 90 tablet, Rfl: 3 dextran 70-hypromellose (artificial tears) 0.1-0.3 % ophthalmic solution, Administer 1 drop into both eyes 4 times daily., Disp: 15 mL, Rfl: 6 Diclofenac Sodium (Voltaren) 1 % gel, Apply 1 Application topically 2 times daily., Disp: 100 g, Rfl: 11 drospirenone-estradiol (Angrliq) 0.5-1 MG tablet, Take 1 tablet by mouth Once per day., Disp: 90 tablet, Rfl: 3 famotidine (Pepcid) 40 MG tablet, take 1 tablet by oral route every day at bedtime, Disp: 90 tablet, Rfl: 0 gabapentin (Neurontin) 400 MG capsule, Take 1 capsule (400 mg) by mouth 2 times daily., Disp: 60 capsule, Rfl: 3 hydroCHLOROthiazide (HYDRODiuril) 25 MG tablet, TAKE 1 TABLET BY MOUTH EVERY MORNING, Disp: 90 tablet, Rfl: 3 lamoTRIgine (LaMICtal) 150 MG tablet, Take 1 tablet by mouth 2 times daily., Disp: , Rfl: levothyroxine (Synthroid, Levoxyl) 137 MCG tablet, Take 137 mcg by mouth Once per day., Disp: 90 tablet, Rfl: 3 lidocaine (Lidoderm) 5 % patch, APPLY 1 PATCH BY TRANSDERMAL ROUTE EVERY DAY IF NEEDED FOR PAIN (MAY WEAR UP TO 12 HOURS), Disp: 30 patch, Rfl: 11 Lidocaine HCl 3 % cream, Apply topically every 12 (twelve) hours., Disp: , Rfl: lisinopril 40 MG tablet, TAKE 1 TABLET BY MOUTH EVERY DAY, Disp: 90 tablet, Rfl: 3 methylPREDNISolone (Medrol Dospak) 4 MG tablets, Follow schedule on package instructions, Disp: 21 tablet, Rfl: 0 naproxen (Naprosyn) 500 MG tablet, Take 1 tablet (500 mg) by mouth if needed in the morning and at bedtime for mild pain., Disp: 30 tablet, Rfl: 0 omeprazole (PriLOSEC) [address] capsule, TAKE 1 CAPSULE BY MOUTH EVERY MORNING, Disp: 90 capsule, Rfl: 3 QUEtiapine (SEROquel) 200 MG tablet, Take 200 mg by mouth if needed at bedtime., Disp: , Rfl: QUEtiapine (SEROquel) 50 MG tablet, TAKE 1 TO 2 TABLETS BY MOUTH AT BEDTIME NEEDED, Disp: , Rfl: rizatriptan (Maxalt) 5 MG tablet, TAKE 1 TABLET BY MOUTH AT ONSET OF MIGRAINE. MAY REPEAT ONCE AFTER 2 HOURS IF NEEDED DO NOT EXCEED 6 TABLETS PER 24 HOURS, Disp: 9 tablet, Rfl: 3 rosuvastatin (Crestor) 5 MG tablet, Take 1 tablet (5 mg) by mouth Once per day., Disp: 90 tablet, Rfl: 3 Varenicline Tartrate, Starter, (Chantix Starting Month Matthew) 0.5 MG X 11 & 1 MG X 42 tablet therapy pack, Take 0.5 mg by mouth Once daily for 3 days, THEN 0.5 mg 2 times daily for 4 days, THEN 1 mg 2 times daily for 21 days., Disp: 1 each, Rfl: 0 Ventolin HFA 108 (90 Base) MCG/ACT inhaler, Inhale 2 puffs by mouth into the lungs every 4 to 6 hours as needed, Disp: 18 g, Rfl: 3 Vraylar 6 MG capsule, Take 1 capsule by mouth in the morning., Disp: , Rfl: Scribe Attestation: Loki Coats, am serving as a scribe to document services personally performed by Leni Gómez, based on the patient's response to questions by provider and provider's statements to me. 07/22/24 11:05 AM Physicians Attestation: Leni Coats DO, have reviewed the information by the scribe, Loki Mehta, for accuracy and agree with its content. documented in this encounter Plan of Treatment Scheduled Orders Name Type Priority Associated Diagnoses Orde r Schedule XR Lumbar Spine 2-3 Views Imaging Routine Acute right-sided low back pain with right-sided sciatica Expected: 07/22/2024, Expires: 07/22/2025 documented as of this encounter Visit Diagnoses Diagnosis Acute right-sided low back pain with right-sided sciatica- Primary Migraine without aura, not refractory documented in this encounter Additional Health Concerns Assessment Noted Time PHQ-9 Depression Total Score: 5 04/28/20 24 11:26 AM EST documented as of this encounter Care Teams Bread Dough Mixer Relationship Specialty Start Date End Date Arely Almendarez MD [address] [place] [id number] PCP - General Family Medicine 07/04/22 Mark Etienne 11/09/22 documented as of this encounter
--- OUTSIDE RECORDS SUMMARY | 2024-07-22 13:42 | XMS_ITS | Encounter Summary ---
Author Organization [employer] Address [address] [place] [address] Care Team Providers Care Ip Architect Name Role Phone Arely Almendarez MD Primary Care Provider [phone] Encounter Details Date Type Department Care Team (Late st Contact Info) Description 04/11/2023 Orders Only [facility] MED[facility] [address] [place], [place] [phone] Arely Almendarez MD [address] [place], [place] [phone] Vasomotor symptoms due to menopause (Primary Dx) Social History Tobacco Use Types Packs/Day Years [...] as of this encounter Visit Diagnoses Diagnosis Vasomotor symptoms due to menopause- Primary documented in this encounter Care Teams Ip Architect Relationship Specialty Start Date End Date Arely Almendarez MD [address] [place] [phone] PCP - General Family Medicine 07/04/22 Mark Etienne 11/09/22 documented as of this encounter
--- OUTSIDE RECORDS SUMMARY | 2024-07-22 13:42 | XMS_ITS | Encounter Summary ---
Author Organization [employer] Address [address] [place] [address] Care Team Providers Care Color Weigher Name Role Phone Arely Almendarez MD Primary Care Provider [phone] Reason for Visit * Reason Comments Med Refill Encounter Details Date Type Department Care Team ([facility] st Contact Info) Description 05/11/2024 Refill [facility] MED[facility] [address] [place], [place] [phone] Arely Almendarez MD [address] [place], [place] [phone] Social History Tobacco Use Types Packs/Day Years [...] documented as of this encounter Care Teams Color Weigher Relationship Specialty Start Date End Date Arely Almendarez MD [address] [place] [address] PCP - General Family Medicine 07/04/22 Mark Etienne 11/09/22 documented as of this encounter
== END 2024-07-22 11:19 | disposition home or self-care (01) ==
LOC: HO.HHCX 11:18
PROVIDERS: Visit Provider Family Medicine
DX: Z13.89 Encounter for screening for other disorder (principal)

== ENCOUNTER 2024-11-23 15:23 | Emergency (ER) | payer MEDICAID, SELFPAY ==
[2024-11-23 15:57] VITALS: BP 137/80; PULSE 79; RESP 16; TEMP 36.1; O2SAT 100; BMI 34.4
--- NOTE | 2024-11-23 15:59 | ED_ITS ---
HPI - Extremity Problem General Chief complaint: Extremity Problem Stated complaint: bliat leg pain/left worse Time Seen by Provider: 11/23/24 16:02 Source: patient Mode of arrival: ambulatory Limitations: no limitations History of Present Illness ED Provider: Luz Maria Butts NP HPI Narrative: Patient is a 59-year-old female with past medical history of hypertension, hyperlipidemia, bipolar disorder, hypothyroidism, osteoarthrit who presents emergency department for evaluation. She has been experiencing bilateral knee pain after extensive walking in [place] on vacation last week. Left feels worse than right. She states that she plans to follow up at her doctor's office tomorrow to have cortisone injections. She has previously managed pain with the acetaminophen and ibuprofen unfortunately she has ran out of the ibuprofen. No overt injury. No swelling. No erythema or warmth. Related Data Home Medications ?Medication ?Instructions ?Recorded ?Confirmed quetiapine 50 mg tablet (Seroquel) 50 mg PO DAILY 09/1311/01/21 lamotrigine 100 mg tablet 100 mg PO DAILY 07/05/2002/14 estradiol 0.05 mg-norethindrone 1 patch topical 2XW 0.14 mg/24 hr semiwkly transderm patch (CombiPatch) gabapentin 300 mg capsule 300 mg PO TID 08/18/23 hydrochlorothiazide 25 mg tablet 25 mg PO QAM 08/18/23 levothyroxine 137 mcg tablet 137 mcg PO QAM 08/18/23 lidocaine 5 % topical patch patch topical 08/18/23 lisinopril 40 mg tablet 40 mg PO QAM 08/18/23 rosuvastatin 5 mg tablet 5 mg PO QAM 08/18/23 Previous Rx's ?Medication ?Instructions ?Recorded amoxicillin 875 mg-potassium 1 tab PO BID 5 days #10 t abs 06/20/22 clavulanate 125 mg tablet omeprazole 20 mg capsule,delayed 20 mg PO DAILY #30 ca ps 09/23/22 release acetaminophen 650 mg 650 mg PO Q8H PRN pain #30 t abs 08/03/23 tablet,extended release (Tylenol 8 Hour) ibuprofen 600 mg tablet 600 mg PO Q6H PRN pain #30 t abs 08/03/23 mrhiitywqq-xhfwmmuckbirh-raywvvpb 1 tab PO Q6H PRN siena n #6 tabs 10/05/23 50 mg-325 mg-40 mg tablet ibuprofen 600 mg tablet 600 mg PO Q8H PRN pain #30 t abs 11/23/24 Allergies Allergy/AdvReac Type Severity Reaction Status Date / Time silicone (SILICONE) Allergy Severe RASH Verified 11/23/24 16:00 celecoxib (Celebrex) Allergy Intermediate hives Verified 11/23/24 16:00 peach Allergy Mild Hives Verified 11/23/24 16:00 Review of Systems Review of Systems: Yes all other systems are reviewed and are negative [facility] Past Medical History Attestation statement: The following information was validated with the patient. Source: old records reviewed Medical History Bipolar 1 disorder HTN (hypertension) Surgical History Hx of excision of mass Hx laparoscopic cholecystectomy History of breast lump/mass excision History of esophagogastroduodenoscopy (EGD) H/O colonoscopy Delivery by section Family History Family History Mother No problems noted. Father No problems noted. 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 Alcohol intake: current Alcohol intake frequency: holidays/special occasions only Patient Tobacco Use Status: Current everyday Tobacco user Tobacco use type: Cigarette Cigarettes Per Day: 10 Substance Use Type: Marijuana Advance Directives: No Advance Directives Information Provided: No Do you have a plan to hurt others: No Plan Current occupational status: disabled Physical Exam Vital Signs: Vital Signs: Last Vital Signs Temp 97 F 11/23/24 16:09 Pulse 79 11/23/24 16:09 Resp 16 11/23/24 16:09 BP 137/80 11/23/24 16:09 Pulse Ox 100 11/23/24 16:09 O2 Del Method Room Air 11/23/24 16:09 BMI result Body Mass Index 34.4 Appearance: Alert.?Oriented to person, place and time. No acute distress.?Normal affect. CVS: Heart sounds normal. Normal heart rate and rhythm.? Pulses normal.?? Respiratory: No respiratory distress.? Lung sounds clear to auscultation bilaterally?? Skin: Skin warm and dry.? Normal skin color.? Extremities: Bilateral knees without effusion, erythema or warmth. No laxity on examination. 2+ DP/PT pulse.? No calf ttp? Neuro: Moves all extremities spontaneously. Sensation intact bilaterally. Ambulates with normal steady gait. Medical Decision Making Medical Decision Making MDM Narrative: Patient is a 59-year-old female with past medical history of hypertension, hyperlipidemia, bipolar disorder, hypothyroidism, osteoarthrit who presents emergency department for evaluation. She has been experiencing bilateral knee pain after extensive walking in [place] on vacation last week. Has known osteoarthritis, pains to see doctor tomorrow for cortisone injections, has ran out of ibuprofen requesting a prescription which I have sent to the pharmacy. On evaluation LE of the intact distally, no evidence of septic arthritis patient physical examination not consistent with DVT that would warrant imaging at this time. No overt injury to suggest an acute fracture dislocation. Stable for discharge home Differential Diagnosis Differential Diagnoses: The differential diagnosis associated with the presentation includes ( see narrative above) External Record Review External record reviewed: Outpatient record Tests considered The following testing was considered but not selected: see narrative above Prescription Management I considered prescription management with: Pain Medication Chronic Conditions Patient?s care impacted by: Other ( see narrative above) Discharge Plan Discharge Clinical Impression: Knee osteoarthritis Patient Disposition: Home, Self-Care Instructions: Osteoarthritis (ED) Prescriptions: New ibuprofen 600 mg tablet 600 mg PO Q8H PRN (Reason: pain) Qty: 30 0RF No Action omeprazole 20 mg capsule,delayed release(DR/EC) 20 mg PO DAILY Qty: 30 5RF amoxicillin-pot clavulanate 875-125 mg tablet 1 tab PO BID 5 Days Qty: 10 0RF ibuprofen 600 mg tablet 600 mg PO Q6H PRN (Reason: pain) Qty: 30 0RF acetaminophen [Tylenol 8 Hour] 650 mg tablet extended release 650 mg PO Q8H PRN (Reason: pain) Qty: 30 0RF qnhyrdvhxw-xvyicrkitwimc-jsuf 50-325-40 mg tablet 1 tab PO Q6H PRN (Reason: pain) Qty: 6 0RF quetiapine [Seroquel] 50 mg tablet 50 mg PO DAILY lamotrigine 100 mg tablet 100 mg PO DAILY lisinopril 40 mg tablet 40 mg PO QAM levothyroxine 137 mcg tablet 137 mcg PO QAM rosuvastatin 5 mg tablet 5 mg PO QAM gabapentin 300 mg capsule 300 mg PO TID CombiPatch 0.05-0.14 mg/24 hr patch semiweekly 1 patch topical 2XW hydrochlorothiazide 25 mg tablet 25 mg PO QAM lidocaine 5 % adhesive patch,medicated topical Referrals: Arely Almendarez MD [Primary Care Provider, Internal Medicine] Interventions: ED Discharge Assessment Last Done: 11/23/24 16:09 Discharge Date/Time: 11/23/24 16:11 Print Language: [place]
[2024-11-23 16:09] VITALS: BP 137/80; PULSE 79; RESP 16; TEMP 36.1; O2SAT 100
--- OUTSIDE RECORDS SUMMARY | 2024-11-23 16:26 | XMS_ITS | Encounter Summary ---
Author Organization [employer] Address [address] [place] [address] Care Team Providers Care Casing Soaker Name Role Phone Arely Almendarez MD Primary Care Provider [phone] Reason for Visit * Reason Comments Med Refill Encounter Details Date Type Department Care Team ([facility] st Contact Info) Description 06/24/2023 Refill [facility] MEDICINE [address] [place], [place] [phone] Arely Almendarez MD [address] [place], [place] [phone] Essential hypertension Social History Tobacco Use Types [...] as of this encounter Plan of Treatment Upcoming Encounters Date Type Department Care Team (Late st Contact Info) Description 01/10/2025 3:15 PM EDT Office Visit [facility] MED[facility]INE [address] [place] [address] Arely Almendarez MD [address] [place] [address] documented as of this encounter Visit Diagnoses Diagnosis Essential hypertension Unspecified essential hypertension documented in this encounter Care Teams Casing Soaker Relationship Specialty Start Date End Date Arely Almendarez MD [address] [place] [address] PCP - General Family Medicine 07/04/22 Mark Etienne 11/09/22 documented as of this encounter
== END 2024-11-23 16:11 | disposition home or self-care (01) ==
PROVIDERS: Emergency Provider Emergency Medicine; PCP General Practice
DX: M17.0 Bilateral primary osteoarthritis of knee (principal); M25.562 Pain in left knee; M25.561 Pain in right knee
CPT/HCPCS: 99282; 99283

== ENCOUNTER 2025-02-03 08:47 | Outpatient (AMB) | payer MEDICAID, SELFPAY ==
[2025-02-03 08:56] VITALS: BMI 34.4
--- NOTE | 2025-02-03 08:56 | MHC.OFFVIS ---
Vital Signs 02/03/25 08:56 Height 5 ft 3 in Weight 194 lb BMI 34.4 Intake Visit Reasons: OV- Left Knee osteoarthritis Intake Note: Angela is a 59 year old female who presents today for a follow up of left knee OA. Patient was recently seen at [facility] ER for knee pain in November, note mentions she will be receiving a cortisone injection the following day. Patient recently was seen with Dr. Keller on 08/18/23, reported injection provided by [facility] had given her relief. Today patient reports that injections no longer providing her with relief. States tried and failed PT in the past, as well as at home exercises that does not help with her discomfort. Her pain is constant, located at the anterior and posterior aspect of knee. Finds temporary relief with icy hot, and very little relief with ibuprofen/Tylenol. She mentios now having discomfort in her right knee. Allergies silicone (SILICONE) Allergy (Severe, Verified 02/03/25 08:58) RASH celecoxib (Celebrex) Allergy (Intermediate, Verified 02/03/25 08:58) hives peach Allergy (Mild, Verified 02/03/25 08:58) Hives HPI HPI OV- Left Knee osteoarthritis: Details: 59 yo female resents to the office today for left knee pain. She has had pain for several years, she had multiple injection without relief. She has had PT with minimal relief. She c/o pain along th anterior and posterior aspect of the knee. She has not tried gel injections. She does a lot of walking which cause pain. She has difficulty with stairs. [facility] Medical History Bipolar 1 disorder HTN (hypertension) Surgical History Hx of excision of mass Hx laparoscopic cholecystectomy History of breast lump/mass excision History of esophagogastroduodenoscopy (EGD) H/O colonoscopy Delivery by section Family History Mother No problems noted. Father No problems noted. 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 horseshoer Alcohol intake: current Alcohol intake frequency: holidays/special occasions only Patient Tobacco Use Status: Current everyday Tobacco user Tobacco use type: Cigarette Cigarettes Per Day: 10 Substance Use Type: Marijuana Current occupational status: disabled Review of Systems Const All systems reviewed & are unremarkable except as noted in HPI and below Physical Exam Vital Signs: BMI result Body Mass Index 34.4 Const General: cooperative and no acute distress Orientation/consciousness: patient oriented x3 Resp Effort & Inspection: normal respiratory effort and able to speak in complete sentences Cardio Peripheral pulses: Peripheral pulses 2+ throughout Neuro General: patient oriented x3 Extrem Other: Left knee is normal to inspection. No joint effusion present. She has full range of motion with crepitus. Tenderness over the medial and lateral joint space. Lateral retropatellar tenderness. Calf supple nontender neurovascularly intact. Right knee normal to inspection without effusion. Full range of motion. Mild tenderness along the patella. Results Reviewed Results Reviewed: X-rays of the left knee obtained in the office today and reviewed by me show patellofemoral arthritis with medial compartment joint space narrowing. Assessment & Plan Assessment & Plan (1) Bilateral primary osteoarthritis of knee: Code(s): M17.0 - Bilateral primary osteoarthritis of knee Category: Medical Plan: We discussed options today which includes continued conservative treatment with physical therapy which she is not interested in. I did discuss the role of gel injections and also geniculate injections. She is interested in both of these. I did place a referral for gel and once these are approved we will call her for an appointment. She will also be referred to pain management to discuss options such as geniculate injections. The patient is content with this plan. Orders: Orders XR knee LT 3V Today M25.562 - Pain in left knee Coding Level of Care Code Est Pt Level 3 (35600) Complex EM visit Add On G2211 Diagnoses Bilateral primary osteoarthritis of knee M17.0
== END 2025-02-03 09:23 | disposition home or self-care (01) ==
LOC: HO.HOS 08:47
PROVIDERS: PCP General Practice; Visit Provider Physician Assistant
DX: M17.0 Bilateral primary osteoarthritis of knee (principal)
CPT/HCPCS: 99213

== ENCOUNTER → 2025-02-03 08:49 | Outpatient (BNV) | payer MEDICAID, SELFPAY | PROVIDERS: Visit Provider Radiology Diagnostic Radiology | DX: M17.12 Unilateral primary osteoarthritis, left knee (principal) | CPT/HCPCS: 73562 ==

== ENCOUNTER 2025-02-03 09:04 | Outpatient (REF) | payer MEDICAID, SELFPAY ==
--- NOTE | ~2025-02-03 | XR_ITS ---
EXAMINATION: XR KNEE, LEFT CLINICAL INFORMATION: M25.562 - Pain in left knee COMPARISON: None available. TECHNIQUE: AP standing bilateral, sunrise, and lateral views of the left knee. FINDINGS: There is a joint effusion. There is moderate narrowing of the medial joint space. There is mild medial subluxation of distal femur. There are tricompartmental marginal osteophytes. Intercondylar tubercles are peaked. XR/XR knee LT 3V IMPRESSION: Moderate osteoarthritis and joint effusion. Electronically signed by: Alex Thomas MD 02/03/2025 10:30 AM EDT
--- OUTSIDE RECORDS SUMMARY | 2025-02-04 09:55 | XMS_ITS | Encounter Summary ---
Author Organization [employer] Address [address] [facility] 7t [place] [address] Care Team Providers Care Customer Service Technician Name Role Phone Arely Almendarez MD Primary Care Provider [phone] Dylon Botello RN Unavailable [phone] Martine Pearce Unavailable Encounter Details Date Type Department Care Team (Late st Contact Info) Description 12/06/2022 Orders Only [facility] MEDICINE 230 [place] [address] Arely Almendarez MD [address] [place], [place] [phone] Social History Tobacco Use Types Packs/Day Years [...] Care Team (Late st Contact Info) Description 03/14/2025 1:00 PM EDT Office Visit [facility] OPTOMETRY [address] [place], [place] [phone] Mirela Wilder, OD 230 [place] [address] documented as of this encounter Visit Diagnoses Not on filedocumented in this encounter Care Teams Customer Service Technician Relationship Specialty Start Date End Date Arely Almendarez MD 230 [place] [address] PCP - General Family Medicine 07/04/22 Dylon Botello, LINDA [address] [place] [address] Registered Nurse Family Medicine 11/24/24 01/18/25 Martine Pearce 11/24/24 01/18/25 Mark Etienne 11/09/22 documented as of this encounter
--- OUTSIDE RECORDS SUMMARY | 2025-02-04 09:55 | XMS_ITS | Encounter Summary ---
Author Organization [employer] Address [address] [facility] [address] [address] 7t [place] [address] Care Team Providers Care Technical Services Representative Name Role Phone Arely Almendarez MD Primary Care Provider [phone] Dylon Botello RN Unavailable Martine Pearce Unavailable Encounter Details Date Type Department Care Team (Late st Contact Info) Description 01/12/2024 Orders Only [facility] MEDICINE 230 [place], [place] [phone] Arely Almendarez MD 230 [place], [place] [phone] Social History Tobacco Use Types Packs/Day Years [...] Description 03/14/2025 1:00 PM EDT Office Visit [facility] OPTOMETRY [address] [place], [place] [phone] Mirela [place], OD 230 [place] [address] documented as of this encounter Visit Diagnoses Not on filedocumented in this encounter Care Teams Technical Services Representative Relationship Specialty Start Date End Date Arely Almendarez MD 230 [place] [address] PCP - General Family Medicine 07/04/22 Dylon Botello, RN [address] [place] [address] Registered Nurse Family Medicine 11/24/24 01/18/25 Martine Pearce 11/24/24 01/18/25 Mark Etienne 11/09/22 documented as of this encounter
--- OUTSIDE RECORDS SUMMARY | 2025-02-04 09:55 | XMS_ITS | Encounter Summary ---
Author Organization [employer] Address [address] [place] [address] 7 [place] [address] Care Team Providers Care Braze Operator Name Role Phone Arely Almendarez MD Primary Care Provider [phone] Dylon Botello RN Unavailable [phone] Martine Pearce Unavailable Encounter Details Date Type Department Care Team (Late Contact Info) Description 01/28/2023 Abstract [facility] MEDICINE 230 [place] [address] Arely Almendarez MD 230 [place], [place] [phone] Social History Tobacco Use Types Packs/Day Years [...] Description 03/14/2025 1:00 PM EDT Office Visit [facility] OPTOMETRY [address] [place], [place] [phone] Mirela [place], OD 230 [place] [address] documented as of this encounter Visit Diagnoses Not on filedocumented in this encounter Care Teams Braze Operator Relationship Specialty Start Date End Date Arely Almendarez MD [address] [place] [address] PCP - General Family Medicine 07/04/22 Dylon Botello, RN [address] [place] [address] Registered Nurse Family Medicine 11/24/24 01/18/25 Martine Pearce 11/24/24 01/18/25 Mark Etienne 11/09/22 documented as of this encounter
--- OUTSIDE RECORDS SUMMARY | 2025-02-04 09:55 | XMS_ITS | Encounter Summary ---
Author Organization [employer] Address [address] [place] [address] 7 [place] [address] Care Team Providers Care Environmental Field Office Manager Name Role Phone Arely Almendarez MD Primary Care Provider Dylon Botello RN Unavailable [phone] Martine Pearce Unavailable Encounter Details Date Type Department Care Team (Late st Contact Info) Description 07/04/2022 Abstract [facility] MEDICINE 230 [place] [address] Montse Sauceda MD Social History Tobacco Use [...] Description 03/14/2025 1:00 PM EDT Office Visit [facility] OPTOMETRY [address] [place] [address] Meño, Mirela, OD 230 [place] [address] documented as of this encounter Visit Diagnoses Not on filedocumented in this encounter Care Teams Environmental Field Office Manager Relationship Specialty Start Date End Date Arely Almendarez MD 230 [place] [address] PCP - General Family Medicine 07/04/22 Dylon Botello, RN [address] [place] [address] [place]PH[place] Saunders [address] Registered Nurse Family Medicine 11/24/24 01/18/25 Martine Pearce 11/24/24 01/18/25 Mark Etienne 11/09/22 documented as of this encounter
--- OUTSIDE RECORDS SUMMARY | 2025-02-04 09:55 | XMS_ITS | Encounter Summary ---
Author Organization [employer] Address [address] [facility] 7t [place] [address] Care Team Providers Care Hedge Fund Trader Name Role Phone Arely Almendarez MD Primary Care Provider [phone] Dylon Botello RN Unavailable [phone] Martine Pearce Unavailable Encounter Details Date Type Department Care Team (Late Contact Info) Description 12/13/2022 Orders Only [facility] MEDICINE [address] [place] [address] Arely Almendarez MD [address] [place] [address] Tobacco use Social History Tobacco Use Types [...] Description 03/14/2025 1:00 PM EDT Office Visit [facility] OPTOMETRY [address] [place], [place] [phone] Mirela Wilder, OD 230 [place] [address] documented as of this encounter Visit Diagnoses Diagnosis Tobacco use documented in this encounter Care Teams Hedge Fund Trader Relationship Specialty Start Date End Date Arely Almendarez MD 230 [place] [address] PCP - General Family Medicine 07/04/22 Dylon Botello, LINDA [address] [place] [address] Registered Nurse Family Medicine 11/24/24 01/18/25 Martine Pearce 11/24/24 01/18/25 Mark Etienne 11/09/22 documented as of this encounter
--- OUTSIDE RECORDS SUMMARY | 2025-02-04 09:55 | XMS_ITS | Encounter Summary ---
Author Organization [employer] Address [address] [place] [address] 7 [place] [address] Care Team Providers Care Senior Site Manager Name Role Phone Arely Almendarez MD Primary Care Provider Dylon Botello RN Unavailable [phone] Martine Pearce Unavailable Encounter Details Date Type Department Care Team (Late st Contact Info) Description 07/04/2022 Abstract [facility] MEDICINE 230 [place] [address] Montse Sauceda MD Social History Tobacco Use [...] Description 03/14/2025 1:00 PM EDT Office Visit [facility] OPTOMETRY [address] [place] [address] Meño, Mirela, OD 230 [place] [address] documented as of this encounter Visit Diagnoses Not on filedocumented in this encounter Care Teams Senior Site Manager Relationship Specialty Start Date End Date Arely Almendarez MD 230 [place] [address] PCP - General Family Medicine 07/04/22 Dylon Botello, RN [address] [place] [address] [place] Saunders [address] Registered Nurse Family Medicine 11/24/24 01/18/25 Martine Pearce 11/24/24 01/18/25 Mark Etienne 11/09/22 documented as of this encounter
--- OUTSIDE RECORDS SUMMARY | 2025-02-04 09:55 | XMS_ITS | Encounter Summary ---
Author Organization [employer] Address [address] [facility] 7t [place] [address] Care Team Providers Care Rn Cardiology Name Role Phone Arely Almendarez MD Primary Care Provider [phone] Dylon Botello RN Unavailable [phone] Martine Pearce Unavailable Encounter Details Date Type Department Care Team (Late Contact Info) Description 09/30/2022 Abstract [facility] MEDICINE 230 [place] [address] Arely Almendarez MD 230 [place] [address] Social History Tobacco Use Types Packs/Day Years [...] Encounters Date Type Department Care Team (Late Contact Info) Description 03/14/2025 1:00 PM EDT Office Visit [facility] OPTOMETRY [address] [place] [address] Mirela Wilder OD 230 [place] [address] documented as of this encounter Visit Diagnoses Not on filedocumented in this encounter Care Teams Rn Cardiology Relationship Specialty Start Date End Date Arely Almendarez MD 230 [place], [place] [phone] PCP - General Family Medicine 07/04/22 Dylon Botello, RN 505 [place] [address] Registered Nurse Family Medicine 11/24/24 01/18/25 Martine Pearce 11/24/24 01/18/25 Mark tEienne 11/09/22 documented as of this encounter
--- OUTSIDE RECORDS SUMMARY | 2025-02-04 09:55 | XMS_ITS | Encounter Summary ---
Author Organization [employer] Address [address] [facility] 7t [place] [address] Care Team Providers Care Hosiery Pairer Name Role Phone Arely Almendarez MD Primary Care Provider [phone] Dylon Botello RN Unavailable [phone] Martine Pearce Unavailable Reason for Visit * Reason Onset Date Comments Nurse Triage 12/11/2022 Encounter Details Date Type Department Care Team ([facility] st Contact Info) Description 12/11/2022 Telephone [facility] MEDICINE [address] [place], [place] [phone] Arely Almendarez MD [address] [place], [place] [phone] Nurse Triage Social History Tobacco Use Types [...] fever. Pt is advised to come to [facility] today but, reports will be there at [...] You become worse * Telephone Encounter - Thalia Crowley - 12/11/2022 1:26 PM EDT Symptom: Skin Lump on top of her head Outcome: Schedule an appointment to be seen within 3 days Reason: Caller denied all higher acuity questions The caller accepted this outcome documented in this encounter Plan of Treatment Upcoming Encounters Date Type Department Care Team (Late st Contact Info) Description 03/14/2025 1:00 PM EDT Office Visit [facility] OPTOMETRY [address] [place], [place] [phone] Mirela Wilder, OD [address] [place] [address] documented as of this encounter Visit Diagnoses Not on filedocumented in this encounter Care Teams Hosiery Pairer Relationship Specialty Start Date End Date Arely Almendarez MD [address] [place] [address] PCP - General Family Medicine 07/04/22 Dylon Botello, RN [address] [place] [address] Registered Nurse Family Medicine 11/24/24 01/18/25 Martine Pearce 11/24/24 01/18/25 Mark Etienne 11/09/22 documented as of this encounter
--- OUTSIDE RECORDS SUMMARY | 2025-02-04 09:55 | XMS_ITS | Encounter Summary ---
Author Organization [employer] Address [address] 7t [place] [address] Care Team Providers Care Nurse Practitioner Name Role Phone Arely Amlendarez MD Primary Care Provider [phone] Dylon Botello RN Unavailable [phone] Martine Pearce Unavailable Reason for Visit * Reason Comments Med Refill Encounter Details Date Type Department Care Team ([facility] st Contact Info) Description 05/11/2024 Refill [facility] MEDICINE [address] [place], [place] [phone] Arely Almendarez MD 230 [place], [place] [phone] Social History Tobacco Use Types Packs/Day Years [...] Description 03/14/2025 1:00 PM EDT Office Visit [facility] OPTOMETRY [address] [place] [address] Meño, Mirela, OD [address] [place] [address] documented as of this encounter Visit Diagnoses Not on filedocumented in this encounter Additional Health Concerns Assessment Noted Time PHQ-9 Depression Total Score: 5 04/28/20 24 11:26 AM EST documented as of this encounter Care Teams Nurse Practitioner Relationship Specialty Start Date End Date Arely Almendarez MD 230 [place] [address] PCP - General Family Medicine 07/04/22 Dylon Botello, RN [address] [place] [address] Registered Nurse Family Medicine 11/24/24 01/18/25 Martine Pearce 11/24/24 01/18/25 Mark Etienne 11/09/22 documented as of this encounter
--- OUTSIDE RECORDS SUMMARY | 2025-02-04 09:55 | XMS_ITS | Encounter Summary ---
Author Organization [employer] Address [address] [facility] 7t [place] [address] Care Team Providers Care Bottle Capper Name Role Phone Arely Almendarez MD Primary Care Provider [phone] Dylon Botello RN Unavailable [phone] Martine Pearce Unavailable Encounter Details Date Type Department Care Team (Late Contact Info) Description 10/25/2022 Orders Only [facility] MEDICINE 230 [place] [address] Arely Almendarez MD 230 [place] [address] Chronic pain of both knees Social History [...] Description 03/14/2025 1:00 PM EDT Office Visit [facility] OPTOMETRY [address] [place] [address] MeñoMirela thapa, OD [address] [place] [address] documented as of this encounter Visit Diagnoses Diagnosis Chronic pain of both knees documented in this encounter Care Teams Bottle Capper Relationship Specialty Start Date End Date Arely Almendarez MD 230 [place] [address] PCP - General Family Medicine 07/04/22 Dylon Botello, RN [address] [place] [address] Registered Nurse Family Medicine 11/24/24 01/18/25 Martine Pearce 11/24/24 01/18/25 Mark Etienne 11/09/22 documented as of this encounter
--- OUTSIDE RECORDS SUMMARY | 2025-02-04 09:55 | XMS_ITS | Encounter Summary ---
Author Organization [employer] Address [address] 7t [place] [address] Care Team Providers Care Library Serials Assistant Name Role Phone Arely Almendarez MD Primary Care Provider [phone] Dylon Botello RN Unavailable [phone] Martine Pearce Unavailable Reason for Visit * Reason Comments Med Refill Encounter Details Date Type Department Care Team ([facility] st Contact Info) Description 03/07/[address] [facility] MEDICINE 230 [place], [place] [phone] Arely Almendarez MD 230 [place], [place] [phone] Chronic knee pain, unspecified laterality Social History Tobacco Use Types Packs/Day Years Used Date Smoking Tobacco: Every Day Cigarettes Smokeless Tobacco: Never Alcohol Use Standard Drinks/Week Comments Yes 0 (1 standard drink = 0.6 oz pur e alcohol) Housing Stability Answer Date Recorded What is your housing situation today? I have [place] tony 03/02/[address] you [...] Description 03/14/2025 1:00 PM EDT Office Visit [facility] OPTOMETRY [address] [place], [place] [phone] Mirela [place], OD 230 [place] [address] documented as of this encounter Visit Diagnoses Diagnosis Chronic knee pain, unspecified laterality documented in this encounter Care Teams Library Serials Assistant Relationship Specialty Start Date End Date Arely Almendarez MD 230 [place] [address] PCP - General Family Medicine 07/04/22 Dylon Botello, RN [address] [place] [address] Registered Nurse Family Medicine 11/24/24 01/18/25 Martine Pearce 11/24/24 01/18/25 Mark Etienne 11/09/22 documented as of this encounter
--- OUTSIDE RECORDS SUMMARY | 2025-02-04 09:55 | XMS_ITS | Encounter Summary ---
Author Organization [employer] Address [address] 7t [place] [address] Care Team Providers Care Social Problems Specialist Name Role Phone Arely Almendarez MD Primary Care Provider [phone] Dylon Botello RN Unavailable [phone] Martine Pearce Unavailable Reason for Visit * Reason Comments Med Refill Encounter Details Date Type Department Care Team ([facility] st Contact Info) Description 06/24/2023 Refill [facility] MEDICINE 230 [place], [place] [phone] Arely Almendarez MD [address] [place], [place] [phone] Essential hypertension Social History Tobacco Use Types [...] Description 03/14/2025 1:00 PM EDT Office Visit [facility] OPTOMETRY [address] [place], [place] [phone] Mirela [place], OD 230 [place] [address] documented as of this encounter Visit Diagnoses Diagnosis Essential hypertension Unspecified essential hypertension documented in this encounter Care Teams Social Problems Specialist Relationship Specialty Start Date End Date Arely Almendarez MD 230 [place] [address] PCP - General Family Medicine 07/04/22 Dylon Botello, RN [address] [place] [address] Registered Nurse Family Medicine 11/24/24 01/18/25 Martine Pearce 11/24/24 01/18/25 Mark Etienne 11/09/22 documented as of this encounter
--- OUTSIDE RECORDS SUMMARY | 2025-02-04 09:55 | XMS_ITS | Encounter Summary ---
Author Organization [employer] Address [address] [facility] [place] [address] Care Team Providers Care Umbrella Tipper Machine Name Role Phone Arely Almendarez MD Primary Care Provider [phone] Dylon Botello RN Unavailable [phone] Martine Pearce Unavailable Encounter Details Date Type Department Care Team (Late st Contact Info) Description 10/01/2023 Orders Only [facility] MEDICINE 230 [place] [address] Provider, MD Hugh Social History Tobacco Use Types Packs/Day Years [...] Description 03/14/2025 1:00 PM EDT Office Visit [facility] OPTOMETRY [address] [place], [place] [phone] Mirela Wilder, OD [address] [place] [address] documented as of this encounter Procedures Procedure Name Priority Date/Time Associated Diagnosis Comments HM COLONOSCOPY Routine 10/03/2016 9:17 AM EDT documented in this encounter Results * Hm Colonoscopy (10/03/2016 9:17 AM EDT) Historical Provider HEALTH MAINTENANCE Final Result documented in this encounter Visit Diagnoses Not on filedocumented in this encounter Care Teams Umbrella Tipper Machine Relationship Specialty Start Date End Date Arely Almendarez MD 230 [place] [address] PCP - General Family Medicine 07/04/22 Dylon Botello, RN [address] [place] [address] Registered Nurse Family Medicine 11/24/24 01/18/25 Martine Pearce 11/24/24 01/18/25 Mark Etienne 11/09/22 documented as of this encounter
--- OUTSIDE RECORDS SUMMARY | 2025-02-04 09:56 | XMS_ITS | Encounter Summary ---
Author Organization [employer] Address [address] [place] [address] Care Team Providers Care Content Specialist Name Role Phone Arely Almendarez MD Primary Care Provider [phone] Dylon Botello RN Unavailable [phone] Martine Pearce Unavailable Reason for Visit * Reason Comments Med Refill Encounter Details Date Type Department Care Team ([facility] st Contact Info) Description 05/15/2023 Refill [facility] [address] [place], [place] [phone] Arely Almendarez MD [address] [place] [address] Social History Tobacco Use Types Packs/Day Years Used Date Smoking Tobacco: Every Day Cigarettes Smokeless Tobacco: Never Alcohol Use Standard Drinks/Week Comments Yes 0 (1 standard drink = 0.6 oz pur e alcohol) Housing Stability Answer Date Recorded What is your housing situation today? I have conrado cecily 03/12/[address] you li [...] Description 03/14/2025 1:00 PM EDT Office Visit [facility] OPT[facility] [address] [place], [place] [phone] Mirela Wilder, OD [address] [place] [address] documented as of this encounter Visit Diagnoses Not on filedocumented in this encounter Care Teams Content Specialist Relationship Specialty Start Date End Date Arely Almendarez MD [address] [place] [address] PCP - General Family Medicine 07/04/22 Dylon Botello, RN [address] [place] [address] Registered Nurse Family Medicine 11/24/24 01/18/25 Martine Pearce 11/24/24 01/18/25 Mark Etienne 11/09/22 documented as of this encounter
--- OUTSIDE RECORDS SUMMARY | 2025-02-04 09:56 | XMS_ITS | Encounter Summary ---
Author Organization [facility] Address [address] [place] [address] Care Team Providers Care Civil Lawyer Name Role Phone Arely Almendarez MD Primary Care Provider [phone] Dylon Botello RN Unavailable [phone] Martine Pearce Unavailable Encounter Details Date Type Department Care Team (Late st Contact Info) Description 04/11/2023 Orders Only [facility] MEDICINE [address] [place], [place] [phone] Arely Almendarez MD [address] [place], [place] [phone] Vasomotor symptoms due to menopause (Primary Dx) [...] Description 03/14/2025 1:00 PM EDT Office Visit [facility] OPTOMETRY [address] [place], [place] [phone] Mirela Wilder, OD [address] [place] [address] documented as of this encounter Visit Diagnoses Diagnosis Vasomotor symptoms due to menopause- Primary documented in this encounter Care Teams Civil Lawyer Relationship Specialty Start Date End Date Arely Almendarez MD [address] [place] [address] PCP - General Family Medicine 07/04/22 Dylon Botello, RN [address] [place] [address] Registered Nurse Family Medicine 11/24/24 01/18/25 Martine Pearce 11/24/24 01/18/25 Mark Etienne 11/09/22 documented as of this encounter
--- OUTSIDE RECORDS SUMMARY | 2025-02-04 09:56 | XMS_ITS | Encounter Summary ---
Author Organization [employer] Address [address] [place] [address] Care Team Providers Care Chief Concierge Name Role Phone Arely Almendarez MD Primary Care Provider [phone] Dylon Botello RN Unavailable [phone] Martine Pearce Unavailable Encounter Details Date Type Department Care Team (Late st Contact Info) Description 06/09/2024 Orders Only [facility] MEDICINE [address] [place], [place] [phone] Arely Almendarez MD [address] [place], [place] [phone] Social History Tobacco Use Types Packs/Day Years [...] Description 03/14/2025 1:00 PM EDT Office Visit [facility] OPT[facility] [address] [place] [address] Meño, Mirela, OD [address] [place] [address] documented as of this encounter Visit Diagnoses Not on filedocumented in this encounter Additional Health Concerns Assessment Noted Time PHQ-9 Depression Total Score: 5 04/28/20 24 11:26 AM EST documented as of this encounter Care Teams Chief Concierge Relationship Specialty Start Date End Date Arely Almendarez MD [address] [place] [address] PCP - General Family Medicine 07/04/22 Dylon Botello, RN [address] [place] [address] Registered Nurse Family Medicine 11/24/24 01/18/25 Maritne Pearce 11/24/24 01/18/25 Mark Etienne 11/09/22 documented as of this encounter
--- OUTSIDE RECORDS SUMMARY | 2025-02-04 09:56 | XMS_ITS | Encounter Summary ---
Author Organization [employer] Address [address] [place] [address] Care Team Providers Care Cyber Software Engineer Name Role Phone Arely Almendarez MD Primary Care Provider [phone] Dylon Botello RN Unavailable [phone] Martine Pearce Unavailable Reason for Visit * Reason Comments Med Refill Encounter Details Date Type Department Care Team ([facility] st Contact Info) Description 06/02/2023 Refill [facility] MEDICINE [address] [place], [place] [phone] Arely Almendarez MD [address] [place], [place] [phone] Tobacco use Social History Tobacco Use Types [...] Description 03/14/2025 1:00 PM EDT Office Visit [facility] OPTOMETRY [address] [place], [place] [phone] Mirela Wilder, OD [address] [place] [address] documented as of this encounter Visit Diagnoses Diagnosis Tobacco use documented in this encounter Care Teams Cyber Software Engineer Relationship Specialty Start Date End Date Arely Almendarez MD [address] [place] [address] PCP - General Family Medicine 07/04/22 Dylon Botello, LINDA [address] [place] [address] Registered Nurse Family Medicine 11/24/24 01/18/25 Martine Pearce 11/24/24 01/18/25 Mark Etienne 11/09/22 documented as of this encounter
--- OUTSIDE RECORDS SUMMARY | 2025-02-04 09:56 | XMS_ITS | Clinical Summary ---
Author Organization [employer] Address [address] [place] [address] 7[address] [place] [address] Care Team Providers Care Sales Representative [employer] Name Role Phone Arely Almendarez MD Primary Care Provider Allergies Active Allergy Reactions Criticality Noted Date [...] by mouth in the morning. 2022 Active butalbital-acetaminoph en-caffeine 50-325-40 MG tablet Take [...] per day. 90 tablet 3 05/13 Active Varenicline Tartrate, Starter, (Chantix Starting Month [...] EVERY MORNING 90 tablet 3 2024 Active lidocaine (Lidoderm) 5 % patch APPLY 1 PATCH BY TRANSDERMAL ROUTE EVERY DAY IF NEEDED FOR PAIN (MAY WEAR UP TO 12 HOURS) 30 patch 11 2024 Active acetaminophen (Tylenol 8 Hour) 650 MG ER tabletIndications:Migr joey without aura, not refractory Take 1 tablet (650 mg) by mouth every 8 (eight) hours if needed for mild pain. 40 tablet 1 2024 Active naproxen (Naprosyn) 500 MG tablet Take 1 tablet (500 mg) by mouth if needed in the morning and at bedtime for mild pain. 30 tablet 07/22 Active rosuvastatin (Crestor) 5 MG tabletIndications:Mixe d hypercholesterolemia and hypertriglyceridemia TAKE 1 TABLET BY MOUTH ONCE DAILY 90 tablet 3 2024 Active levothyroxine (Synthroid, Levoxyl) 137 MCG tabletIndications:Acqu ired hypothyroidism TAKE 1 TABLET BY MOUTH ONCE DAILY 90 tablet 3 2024 Active baclofen (Lioresal) 10 MG tablet TAKE 1 TABLET BY MOUTH TWICE DAILY IN THE MORNING AND AT BEDTIME NEEDED FOR MUSCLE SPASMS 60 tablet 1 2024 Active cloNIDine (Catapres) 0.1 MG tabletIndications:Bipo lar I disorder (CMS/HCC) take 1/2 tablet by mouth every night 2024 Active lamoTRIgine (LaMICtal) 200 MG tabletIndications:Bipo lar I disorder (CMS/HCC) Take 1 tablet by mouth 2 times daily. 2024 Active amitriptyline (Elavil) 10 MG tabletIndications:Migr joey without aura, not refractory Take 1 tablet (10 mg) by mouth at bedtime. To PREVENT migraines 90 tablet 3 01/05 Active rizatriptan (Maxalt) 5 MG tabletIndications:Migr joey without aura, not refractory Take 1 tablet (5 mg) by mouth 1 (one) time if needed for migraine for up to 63 doses. May repeat in 2 hours if unresolved. Do not exceed 30 mg in 24 hours. 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 Take with full glass of water. 56 tablet 2 03/11 Active gabapentin (Neurontin) 400 MG capsule TAKE 1 CAPSULE BY MOUTH TWICE DAILY 60 capsule 3 2024 Active Ventolin HFA 108 (90 Base) MCG/ACT inhalerIndications:Mil d persistent asthma without complication INHALE 2 PUFFS BY MOUTH EVERY 4 TO 6 HOURS NEEDED 18 g 3 2024 Active amitriptyline (Elavil) 10 MG tablet Take 1 tablet (10 mg) by mouth at bedtime. To PREVENT migraines 90 tablet 3 01/10 Discontinued( Reorder (will not trigger notification to Pharmacy)) rizatriptan (Maxalt) 5 MG tablet TAKE 1 TABLET BY MOUTH AT ONSET OF MIGRAINE. MAY REPEAT ONCE AFTER 2 HOURS IF NEEDED DO NOT EXCEED 6 TABLETS PER 24 HOURS 9 tablet 3 01/10 Discontinued( Reorder (will not trigger notification to Pharmacy)) gabapentin (Neurontin) 400 MG capsule Take 1 capsule (400 mg) by mouth 2 times daily. 60 capsule 3 01/21 Discontinued varenicline (Chantix) 1 MG tablet Take 1 tablet (1 mg) by mouth 2 times daily. Take with full glass of water. 56 tablet 1 01/10 Discontinued( Reorder (will not trigger notification to Pharmacy)) albuterol (Ventolin HFA) 108 (90 Base) MCG/ACT inhalerIndications:Mil d persistent asthma without complication INHALE 2 PUFFS BY MOUTH EVERY 4 TO 6 HOURS NEEDED 18 g 3 01/25 Discontinued Active Problems Problem Noted Date Diagnosed Date Knee swelling 05/03/2024 Osteoarthritis of left knee [...] TID Will restart, have her start with FOOD CASHIER on red team Goals of prescribing and limitations of pain meds If she cannot come to FOOD CASHIER appointments or has illicit substances in her urine again, we will stop the medication Assessment & Plan (09/23/2022 11:03 AM EDT): On Tramadol for this previously 50mg TID Will restart, have her start with FOOD CASHIER on red team Goals of prescribing and [...] 11:01 AM EDT): Continue meds per psych Resolved Problems Problem Noted Date Diagnosed Date Resolved Date Acute pain of left knee 05/03/202412/24 Assessment & Plan (05/03/2024 6:29 PM EST): Swelling, no moment of injury Pt has hx benefited from injection will see Dr. Benavides tomorrow Films ordered DME brace given for knee stability in iterim Encounters Date Type Department Care Team Description 01/22/2025 Refill [facility] [address] [place] [address] Arely Almendarez MD Mild persistent asthma without complication 01/21/2025 Refill [facility] [address] [place] [address] Angelika LeniDO 01/18/2025 Patient Outreach [address] [address] Arely Almendarez MD Care Coordination (C3 CM-CHW Martine Pearce telephone call outreach/) 01/10/2025 3:15 PM EDT Office Visit [address] [address] Arely Almendarez MD Essential hypertension (Primary Dx); Bipolar I disorder (CMS/HCC); Mild persistent asthma without complication; Dietary counseling; Exercise counseling; Class 1 obesity with serious comorbidity and body mass index (BMI) of 34.0 to 34.9 in adult, unspecified obesity type; Prediabetes; Hot flashes due to menopause; Tobacco use; Primary osteoarthritis of left knee; Chronic pain of both knees; Migraine without aura, not refractory 01/10/2025 Travel 01/10/2025 Patient Outreach [address] [address] Arely Almendarez MD Care Coordination (C3 CM-W Martine Pearce telephone call outreach) 01/06/[address] [address] Arely Almendarez MD 01/03/2025 Patient Outreach [address] [address] Arely Almendarez MD Care Coordination (C3 CM-[facility] Pearce telephone call outreach) 01/03/2025 Telephone [facility] [address] [place] [address] Arely Almendarez MD TC-Joint injectio 12/31/2024 Patient Outreach [address] [address] Arely Almendarez MD Pre-visit Planning (Pre visit planning LVM ) 12/27/2024 Patient Outreach [address] [address] Arely Almendarez MD Care Coordination (C3 CM-W Martine Pearce telephone call outreach) 12/20/2024 Telephone [facility] [address] [place] [address] Arely Almendarez MD Appointment Request 12/16/2024 Patient Outreach [address] [address] Arely Almendarez MD [facility] 12/09/2024 Patient Outreach [address] [address] Arely Almendarez MD Care Coordination (C3 -[facility] telephone call outreach) 11/30/2024 11:00 AM EDT Procedure Visit [address] [address] Nasima Benavides MD Primary osteoarthritis of left knee (Primary Dx) 11/30/2024 Travel 11/25/2024 Telephone [facility] [address] [place] [address] Arely Almendarez MD TC-Joint Injection 11/24/2024 Patient Outreach [address] [address] Arely Almendarez MD Care Coordination 11/24/2024 Patient Outreach [address] [address] Arely Almendarez MD 11/24/2024 Patient Outreach [address] [address] Arely Almendarez MD Care Coordination (C3CM- chart review) 11/24/2024 Patient Outreach [address] [address] Arely Almendarez MD 11/22/[address] [address] Arely Almendarez MD Appointment Request 11/13/2024 Refill [facility] [address] [place] [address] Leni Carney DO from Last 3 Months Immunizations Immunization Administration Dates Next Due Hep A, Adult [...] housing situation today? I have conrado tony 01/10/[address] you li ve. Do you have problems with any of the following? Not on file 01/10/2025 Food Insecurity Answer Date Recorded Within the past 12 months, y ou worried that your food would run out before you got money to buy more: Never True 01/10/2025 Within the past 12 months,th e food you bought just didn't last and you didn't have enough money to get more: Never True Transportation Answer Date Recorded In the past 12 months, has l ack of transportation kept you from medical appts, meetings, work or from getting things needed for daily living? No 01/10/2025 Utilities Answer Date Recorded In the past 12 months, has t he electric, gas, oil or water company threatened to shut off services in your home? No 01/10/2025 Depression Answer Date Recorded Patient Health Questionnaire-2 Score 2 04/28/2024 Internet Access Answer Date Recorded Internet Access Q1 Yes 01/10/2025 Internet Access Q2 Not on file 01/10/2025 Comments No Sex and Gender Information Value Date Recorded Sex Assigned at Female 03/25/2022 10:14 AM EDT Legal Sex Female 10:14 AM EDT Gender Identity Female 03/25/2022 10:14 AM EDT Sexual Orientation Straight 03/25/2022 10 :14 AM EDT Last Filed Vital Signs Vital Sign Reading Time Taken Comments Blood Pressure 130/78 01/10/2025 3:19 PM EDT Pulse 90 01/10/2025 3:19 PM EDT Temperature 36.8 C (98.3 F) 01/10/2025 3:19 PM EDT Respiratory Rate 21 01/10/2025 3:19 PM EDT Oxygen Saturation 100% 01/10/2025 3:19 PM EDT Inhaled Oxygen Concentration - - Weight 83.5 kg (184 lb) 01/10/2025 3:19 PM EDT Height 160 cm (5' 3 ) 01/10/2025 3:19 PM EDT Body Mass Index 32.59 01/10/2025 3:19 PM EDT Plan of Treatment Upcoming Encounters Date Type Department Care Team (Late st Contact Info) Description 03/14/2025 1:00 PM EDT Office Visit [facility] [address] [place] [address] Meño, Mirela, OD [address] [place] [address] Health Maintenance Due Date Last Done Comments CT Colonography 1965 FIT DNA/Cologuard 1965 FIT 1965 FOBT 1965 Sigmoidoscopy 1965 Disability Screening 1965 Colonoscopy 10/03/2017 10/03/2016 Colorectal Cancer Screening 10/03/2017 Pneumococcal Vaccine: 50+ Years (2 of 2 - PCV) 12/26/2021 12/26/2020 Mammogram 06/22/2023 06/22/2021, 09/24, 10/02/2017 RSV Patients and Patients Aged 60 years or older (1 - Risk 60-74 years 1-dose series) 2024 SDOH Screening 09/22/2024 09/23/2023 COVID-19 Vaccine ( season) 2025 07/18/2021, 08/24/2020, 07/27/2020 Influenza Vaccine (#1) 2025 7, 06/26/2016, 05/08/2015, Additional history exists Depression Screening 04/28/2025 04/28/2024, 04/28/20 24 Alcohol/Substance Use Screening 01/10/2026 01/10/2025 Diabetes: Hemoglobin A1C 01/10/2026 025, 09/30/2023, 03/19/2022, Additional history exists Tobacco Screening 01/10/2026 01/10/2025 Pap Smear 04/30/2026 04/30/2023 Cervical Cancer Screening 04/30/2028 HPV/Cotest 04/30/2028 04/30/2023 Lipid Panel 09/29/2028 09/30/2023, 02/24, 12/27/2020 DTaP/Tdap/Td Vaccines (3 - Td or Tdap) 06/20/2032 06/20/2022, 07/20/2013, 04/01/2005 Hepatitis B Vaccines Completed 03/01/2016, 11/14/2015, 02/02/2009 [...] patient's age to complete this topic Meningococcal B Vaccine Aged Out No l onger eligible based on patient's age to complete [...] Procedure Name Priority Date/Time Associated Diagnosis Comments POCT GLYCATED HEMOGLOBIN, TOTAL Routine 01/10/2025 3:21 PM EDT Prediabetes POCT GLUCOSE Routine 01/10/2025 3:21 PM EDT Prediabetes IN ARTHROCENTESIS ASPIR&/INJ MAJOR JT/BURSA W/O US Routine 11/30/2024 10:30 AM EDT Primary osteoarthritis of left knee HEPATITIS C AB W/REFL TO HCV RNA, QN, PCR Routine 09/30/2023 11:41 AM EDT Screening examination for STI HIV 1/2 ANTIGEN/ANTIBODY, FOURTH GENERATION W/RFL Routine 09/30/2023 11:41 AM EDT Screening examination for STI LIPID PANEL, STANDARD Routine 09/30/2023 11:41 AM EDT Prediabetes HPV MRNA E6/E7 REFLEX TO HPV 16, 18/45 Routine 04/30/2023 3:55 PM EST PAP SMEAR Routine 04/30/2023 3:55 PM EST MAMMOGRAM GENERIC Routine 06/22/2021 9:5 5 AM EST HM COLONOSCOPY Routine 10/03/2016 9:17 AM EDT from Last 3 Months or Most Recently Relevant to Health Maintenance Results * (ABNORMAL) POCT HGB A1C (01/10/2025 3:21 PM EDT) Hemoglobin A1C 6.5(A) 4.0 - 5.7 % QC Media Lot # [id number] Lot# Expiration Date ,[id number] Blood 01/10/2025 3:21 PM EDT Arely Almendarez MD POINT OF CARE TEST ENTER/EDIT ORDERABLES Final Result * POCT Glucose (01/10/2025 3:21 PM EDT) Glucose Blood, POC 146 60 - 200 mg/dL QC Media Lot # [id number] Lot# Expiration Date [id number] Blood Capillary blood specimen / Unknown 01/10/2025 3:21 PM EDT Arely Almendarez MD POINT OF CARE TEST ENTER/EDIT ORDERABLES Final Result * IN ARTHROCENTESIS ASPIR&/INJ MAJOR JT/BURSA W/O US (11/30/2024 10:30 AM EDT) Narrative Nasima Benavides MD - 11/30/2024 10:30 AM EDT Nasima Benavides MD 11/30/2024 10:46 AM Arthrocentesis Date/Time: 11/30/2024 10:30 AM Performed by: Nasima Benavides MD Authorized by: Nasima Benavides MD Consent: Consent obtained: Verbal and written Consent given by: Patient Risks, benefits, and alternatives were discussed: yes Risks discussed: Pain Alternatives discussed: Referral Shokan protocol: Procedure explained and questions answered to patient or proxy's satisfaction: yes Relevant documents present and verified: yes Test results available: yes Imaging studies available: yes Required blood products, implants, devices, and special equipment available: yes Site/side marked: yes Immediately prior to procedure, a time out was called: yes Patient identity confirmed: Verbally with patient Location: Location: Knee Knee: L knee Anesthesia: Anesthesia method: Topical application Procedure details: Preparation: Patient was prepped and draped in usual sterile fashion Needle gauge: 22 G Ultrasound guidance: no Approach: Lateral Post-procedure details: Dressing: Adhesive bandage Procedure completion: Tolerated Nasima Benavides MD IN CLINIC/BEDSIDE ORDERABLES Fin al Result * Hepatitis C Antibody with Reflex to HCV, RNA, Quantitative, Real-Time PCR (09/30/2023 11:41 AM EDT) Hepatitis C Antibody Nonreactive Nonreactive [facility] Comment:Antibodies to HCV no t detected; does not exclude early acuteHCV infection. Blood Venous blood specimen / Unknown 09/30/2023 11:41 AM EDT 09/30/2023 1:16 PM EDT us Arely Almendarez MD LAB BLOOD ORDERABLES Final Res ult Performing Organization Address [facility]/ZIP Co de Phone Number [facility] [address] [place] [phone] * HIV-1/2 Antigen and Antibodies, Fourth Generation, with Reflexes (09/30/2023 11:41 AM EDT) HIV AB/AG Nonreactive Nonreactive [facility] Comment:HIV-1 p24 Ag and/or HIV-1/HIV-2 Ab not detected.A test result that is nonreactive does not exclude thepossibility of exposure to or infection with HIV-1 and/orHIV-2. Nonreactive results in this assay for individualswith prior exposure to HIV-1 and/or HIV-2 may be due toantigen and antibody levels that are below the limit ofdetection of this assay.The [employer] HIV Ag/Ab Combo assay result andsupplemental assay results should be interpreted inconjunction with the patient's clinical presentation,history and other laboratory results. If the results areinconsistent with clinical evidence, additional testing issuggested to confirm the result. Blood Venous blood specimen / Unknown 09/30/2023 11:41 AM EDT 09/30/2023 1:16 PM EDT us Arely Almendarez MD LAB BLOOD ORDERABLES Final Res ult Performing Organization Address [facility]/ZIP Co de Phone Number [facility] [address] [place] [phone] * Lipid Panel, Standard (09/30/2023 11:41 AM EDT) Triglycerides 134 <150 mg/dL [facility] Comment:Desirable Triglyceri de: less than 150 mg/dLBorderline High Triglyceride 150-199 mg/dLHigh Triglyceride: 200-499 mg/dLVery High Triglyceride: greater than or equal to 5OO mg/dL Cholesterol 134 <200 mg/dL [facility] Comment:Desirable Cholestero l: less than 200 mg/dLBorderline High Cholesterol: 200-239 mg/dLHigh Cholesterol: greater than 239 mg/dL LDL Cholesterol Calculated 62 <100 mg/dL [facility] Comment:Desirable LDL: less than 100 mg/dLNear Optimal/Above Optimal LDL: 110- 129 mg/dLBorderline High LDL: 130-159 mg/dLHigh LDL: 160-189 mg/dLVery High LDL: greater than or equal to 190 mg/dL HDL Cholesterol 46 >40 mg/dL [facility] Comment:Desirable HDL: great er than 40 mg/dL Note: This HDL assay may give artificially low results in patients with liver disease. Blood Venous blood specimen / Unknown 09/30/2023 11:41 AM EDT 09/30/2023 1:16 PM EDT us Arely Almendarez MD LAB BLOOD ORDERABLES Final Res ult [facility] [address] [place] [phone] * HPV mRNA E6/E7 w/Reflex to HPV Genotypes 16, 18/45 (04/30/2023 3:55 PM EST) HPV nRNA E6/E7 Not Detected Not Detected [facility] Comment:Methodology: Transcr iption-Mediated AmplificationThis assay detects E6/E7 viral messenger RNA (mRNA) from 14high-risk HPV types (16,18,31,33,35,39,45,51,52,56,58,59,66,68).Cervical sources are required for HPV testing.If a vaginal source from a patient who has had atotal hysterectomy with removal of cervix wassubmitted, please contact the testing laboratoryfor alternative testing options.For additional information, please refer [email or web address].WebSideStory/faq/JOC305e1(This link if provided for information/educational purposes only.)THIS TEST WAS PERFORMED AT:[facility] [place] [phone] RODAS MD HPV mRNA E6/E7 TNP [facility] HPV 16 RNA [facility] HPV 18/45 RNA TNP [facility] 04/30/2023 3:55 PM EST 05/01/2023 8:20 AM EST Arely Almendarez MD LAB CYTOLOGY ORDERABLES Final Result [facility] [address] [place] [phone] * Pap Smear (04/30/2023 3:55 PM EST) 04/30/2023 3:55 PM EST 05/01/2023 8:20 AM EST Narrative [facility] - 05/05/2023 1:42 PM EST ----- ------- Name: Angela Landeros Age/Sex: 57/F : 1965 Unit#: [id number] Attend Dr: Arely Almendarez Re04/30/23 Status: DEP REF Location: HO.HHCLNP Disch: ----- ------- SPEC : [id number] RECD: 05/01/23 STATUS: IDA KELLOGG NUM: [id number] OMKAR: 04/30/231555 [facility] DR: Arely Almendarez ENTERED: 05/01/23 SP TYPE: Pap Smr OTHR DR: ORDERED: Pap Smear Interpretation Satisfactory for evaluation. Negative for intraepithelial lesion or malignancy. HPV mRNA E6/E7: NOT DETECTED This assay detects E6/E7 viral messenger RNA (mRNA) from 14 high-risk HPV types (16, 18, 31, 33, 35, 39, 45, 51, 52, 56, 58, 59, 66, 68) HPV testing performed by [facility], [place], [place]. See reference laboratory portion of the EMR for entire report. Clinical Information LMP: Unknown date Previous PAP test: Unknown date. WNL Material Received ThinPrep-Vaginal/Cervical ----- ------- Signed (signature on file) LUDA Norman (ASCP) 05/05/23 1342 ----- ------- END OF REPORT Arely Almendarez MD LAB CYTOLOGY ORDERABLES Final Result [facility] [address] [place] [phone] * Mammography Report 1 (06/22/2021 9:55 [...] EDT) Historical Provider HEALTH MAINTENANCE Final Result from Last 3 Months or Most Recently Relevant to Health Maintenance Insurance [employer] C3 Care Teams Sales Representative Gas [employer] Relationship Specialty Start Date End Date Arely Almendarez MD [address] [place] [address] PCP - General Family Medicine 07/04/22 Mark Etienne 11/09/22
--- OUTSIDE RECORDS SUMMARY | 2025-02-04 09:56 | XMS_ITS | Encounter Summary ---
Author Organization [employer] Address [address] [place] [address] Care Team Providers Care Benefits Counselor Name Role Phone Arely Almendarez MD Primary Care Provider [phone] Dylon Botello RN Unavailable [phone] Martine Pearce Unavailable Reason for Visit * Reason Comments Med Refill Encounter Details Date Type Department Care Team ([facility] st Contact Info) Description 05/11/2024 Refill [facility] [address] [place], [place] [phone] Arely Almendarez MD [address] [place], [place] [phone] Social History Tobacco Use Types Packs/Day Years [...] [facility] [address] [place] [address] Meño, Mirela, OD [address] [place] [address] documented as of this encounter Visit Diagnoses Not on filedocumented in this encounter Additional Health Concerns Assessment Noted Time PHQ-9 Depression Total Score: 5 04/28/20 24 11:26 AM EST documented as of this encounter Care Teams Benefits Counselor Relationship Specialty Start Date End Date Arely Almendarez MD [address] [place] [address] PCP - General Family Medicine 07/04/22 Dylon Botello, RN [address] [place] [phone] Registered Nurse Family Medicine 11/24/24 01/18/25 Martine Pearce 11/24/24 01/18/25 Mark Etienne 11/09/22 documented as of this encounter
--- OUTSIDE RECORDS SUMMARY | 2025-02-04 09:56 | XMS_ITS | Encounter Summary ---
Author Organization [employer] Address [address] [facility] [address]t [place] [address] Care Team Providers Care Dimension Specification Inspector Name Role Phone Arely Almendarez MD Primary Care Provider [phone] Dylon Botello RN Unavailable [phone] Martine Pearce Unavailable Reason for Visit * Reason Onset Date Comments Nurse Triage 07/14/2024 Encounter Details Date Type Department Care Team ([facility] st Contact Info) Description 07/14/[address] [facility] [address] [place], [place] [phone] Arely Almendarez MD [address] [place], [place] [phone] Nurse Triage Social History Tobacco Use Types [...] Pt reports falling 4 times this week. 2/15,16,17,18 all on the same left knee. Pt fell on ice leaving apartment x1, no snap/pop heard. Pt reports knee felt like it gave way once or twice prior to fall. Pt reports scrape on the knee which has been cleaned and covered at home. Pt reports some swelling/redness. Pt did apply ice and continues [...] with home care advised. ASK apt with RAIL CAR PAINTER/SANDBLASTER Harika 07/16/24. Pt agrees with disposition. Insurance [...] caller accepted this outcome. Contact pt at [phone] documented in this encounter Plan of Treatment Upcoming Encounters Date Type Department Care Team ([facility] st Contact Info) Description 03/14/2025 1:00 PM EDT Office Visit [facility] [address] [place] [address] Mirela Wilder, OD [address] [place] [address] documented as of this encounter Visit Diagnoses Not on filedocumented in this encounter Additional Health Concerns Assessment Noted Time PHQ-9 Depression Total Score: 5 04/28/20 24 11:26 AM EST documented as of this encounter Care Teams Dimension Specification Inspector Relationship Specialty Start Date End Date Arely Almendarez MD [address] [place] [address] PCP - General Family Medicine 07/04/22 Dylon Botello, RN [address] [place] [address] Registered Nurse Family Medicine 11/24/24 01/18/25 Martine Pearce 11/24/24 01/18/25 Mark Etienne 11/09/22 documented as of this encounter
--- OUTSIDE RECORDS SUMMARY | 2025-02-04 09:56 | XMS_ITS | Encounter Summary ---
Author Organization [employer] Address [address] [facility] [address] 7[address] [place] [address] Care Team Providers Care Coke Loader Name Role Phone Arely Almendarez MD Primary Care Provider [phone] Dylno Botello RN Unavailable [phone] Martine Pearce Unavailable Reason for Visit * Reason Comments Med Refill Encounter Details Date Type Department Care Team ([facility] st Contact Info) Description 08/10/2024 Refill [facility] [address] [place] [address] Leni Carney DO 230 [place] [address] Migraine without aura, not refractory Social History [...] enough money to get more: Never True 10/ Transportation Answer Date Recorded In the past [...] 03/14/2025 1:00 PM EDT Office Visit [facility] [address] [place], [place] [phone] Meño, Mirela, OD [address] [place] [address] documented as of this encounter Visit Diagnoses Diagnosis Migraine without aura, not refractory documented in this encounter Additional Health Concerns Assessment Noted Time PHQ-9 Depression Total Score: 5 04/28/20 24 11:26 AM EST documented as of this encounter Care Teams Coke Loader Relationship Specialty Start Date End Date Arely Almendarez MD 230 [place] [address] PCP - General Family Medicine 07/04/22 Dylon Botello, LINDA [address] [place] [address] Registered Nurse Family Medicine 11/24/24 01/18/25 Martine Peacre 11/24/24 01/18/25 Mark Etienne 11/09/22 documented as of this encounter
--- OUTSIDE RECORDS SUMMARY | 2025-02-04 09:56 | XMS_ITS | Encounter Summary ---
Author Organization [employer] Address [address] [facility] [address] 7t [place] [address] Care Team Providers Care Marketing Community Liaison Name Role Phone Arely Almendarez MD Primary Care Provider [phone] Dylon Botello RN Unavailable [phone] Martine Pearce Unavailable Encounter Details Date Type Department Care Team (Late st Contact Info) Description 06/24/2023 Orders Only [facility] 230 [place], [place] [phone] Arely Almendarez MD 230 [place], [place] [phone] Chronic knee pain, unspecified laterality Social History [...] Description 03/14/2025 1:00 PM EDT Office Visit [facility] [address] [place], [place] [phone] Mirela Wilder, OD 230 [place] [address] documented as of this encounter Visit Diagnoses Diagnosis Chronic knee pain, unspecified laterality documented in this encounter Care Teams Marketing Community Liaison Relationship Specialty Start Date End Date Arely Almendarez MD 230 [place] [address] PCP - General Family Medicine 07/04/22 Dylon Botello, LINDA 505 [place] [address] Registered Nurse Family Medicine 11/24/24 01/18/25 Martine Pearce 11/24/24 01/18/25 Mark Etienne 11/09/22 documented as of this encounter
== END 2025-02-03 09:05 | disposition home or self-care (01) ==
LOC: HO.HOSX 09:04
PROVIDERS: Visit Provider Physician Assistant
DX: M17.0 Bilateral primary osteoarthritis of knee (principal)
CPT/HCPCS: 73562; 99212

== ENCOUNTER 2025-04-18 11:29 | Outpatient (AMB) | payer MEDICAID, SELFPAY ==
--- NOTE | 2025-04-18 11:30 | A.OFFVIS_ITS ---
Vital Signs 04/18/25 11:32 Height 5 ft 3 in Weight 180 lb 8 oz BMI 32.0 BP 149/76 H Blood Pressure Location Lt brachial Position Sitting Pulse 114 H Pulse Source Pulse Oximeter Pulse Oximetry (%) 97 Oxygen Delivery Method Room Air Intake Visit Reasons: Patellofemoral disorders, left knee Allergies silicone (SILICONE) Allergy (Severe, Verified 04/18/25 11:33) RASH celecoxib (Celebrex) Allergy (Intermediate, Verified 04/18/25 11:33) hives peach Allergy (Mild, Verified 04/18/25 11:33) Hives HPI Comments Details: The patient is a 59 year old individual presenting for an initial evaluation of chronic left knee pain. The patient has a longstanding history of bilateral knee osteoarthritis and was referred by [facility]. The pain is constant, localized to the anterior and posterior aspects of the knee, and is exacerbated by walking, climbing stairs, and cold weather. The patient describes the pain as aching, sharp, stabbing and 10/10 at its worst, particularly in the morning. Past interventions for left knee pain include a cortisone injection in November after an ER visit and another injection from Dr. Keller in 2023, which provided some relief. However, the patient reports that cortisone injections are no longer significantly effective. The patient has trialed and failed physical therapy, and home exercises do not help. The patient uses ibuprofen, Tylenol, gabapentin and Icy Hot and knee bracing for pain and declined approved Euflexxa gel injections. The patient also reports significant pain in the right knee, which is described as acting up really, really bad, and requires a knee brace for walking. A right knee x-ray from July 30 showed mild osteoarthritis. Past medical history includes L4-L5 back surgery years ago per patient, with residual back pain in cold weather and certain movements. The patient also has a history of bipolar disorder and depression, for which the patient sees a psychiatrist for medication. The patient denies being diabetic or taking blood thinners. The patient lives alone and reports smoking marijuana daily which is obtained from a local dispensary. - Location: Pain is primarily in the left knee, localized to the anterior, posterior, and lateral aspects. - Associated Symptoms: The patient also reports significant pain in the right knee. - Quality: The pain is described as sharp, aching, and bad, with an associated cracking sensation. - Severity: Rated as 10/10 at its worst. - Onset and Timing: The pain is constant and is worse in the morning. - Exacerbating Factors: Pain is worsened by walking, climbing stairs, getting up from a seated position, and cold weather. - Relieving Factors: The patient reports using ibuprofen, Tylenol, Icy Hot, ga bapentin and a knee brace for relief. - Interference with Function: The pain causes fatigue and impairs mobility, requiring the use of a brace on the right knee to walk. - Affect: The patient reports that the pain causes fatigue. - Analgesia: The patient currently uses ibuprofen and Tylenol for pain. - Past treatments include cortisone injections, which are no longer effective. - Pain levels are reported as 10/10 at worst. - Activities of Daily Living: Pain interferes with walking and climbing stairs. - The patient has difficulty getting up and uses a right knee brace to walk. - Aberrant Drug-Related Behaviors: The patient reports daily use of marijuana obtained from a dispensary. [facility] Medical History (Updated 04/18/25 @ 11:52 by LORY Laws) Bipolar 1 disorder HTN (hypertension) Surgical History (Updated 04/18/25 @ 11:52 by LORY Laws) History of lumbar surgery Hx of excision of mass Hx laparoscopic cholecystectomy History of breast lump/mass excision History of esophagogastroduodenoscopy (EGD) H/O colonoscopy Delivery by section Family History Mother No problems noted. Father No problems noted. 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 sponge fisherman Alcohol intake: current Alcohol intake frequency: holidays/special occasions only Patient Tobacco Use Status: Current everyday Tobacco user Tobacco use type: Cigarette Cigarettes Per Day: 10 Substance Use Type: Marijuana Current occupational status: disabled Review of Systems Const Details: - Musculoskeletal: Reports constant, sharp, aching 10/10 pain in the left knee affecting the anterior, posterior, and lateral aspects. - Reports cracking in the knees. - Reports significant pain in the right knee. - Reports back pain exacerbated by cold weather, status post L4-L5 surgery per patient. - Constitutional: Reports fatigue related to pain. - Psychiatric: Reports a history of depression and bipolar disorder, sees Psychiatrist for medications. All systems reviewed & are unremarkable except as noted in HPI and below Physical Exam Vital Signs: Last Vital Signs Pulse 114 H 04/18/25 11:32 BP 149/76 H 04/18/25 11:32 Pulse Ox 97 04/18/25 11:32 Oxygen Delivery Method Room Air 04/18/25 11:32 BMI result Body Mass Index 32.0 General: Appears afebrile. Alert and oriented. Mood and affect appropriate. Follows and participates in conversation appropriately. Respiratory effort is unlabored. No cough. Able to transition from sit to stand unassisted. Ambulates with bilaterally normal heel strike and toe off. Extrem General: Yes capillary refill normal, Yes no clubbing, cyanosis or edema and Yes no calf tenderness Right lower extremity: knee (Knee brace present) Details: normal to inspection, tenderness Location: of the patella and of the lateral joint line, normal ROM and crepitus; no swelling, no ecchymosis, no deformity and no unusual warmth Left lower extremity: knee Details: normal to inspection, tenderness Location: of the medial joint line and of the lateral joint line, normal ROM and crepitus; no swelling, no ecchymosis, no deformity and no unusual warmth Results Reviewed Results Reviewed: XR KNEE, LEFT 02/03/25 CLINICAL INFORMATION: M25.562 - Pain in left knee COMPARISON: None available. TECHNIQUE: AP standing bilateral, sunrise, and lateral views of the left knee. FINDINGS: There is a joint effusion. There is moderate narrowing of the medial joint space. There is mild medial subluxation of distal femur. There are tricompartmental marginal osteophytes. Intercondylar tubercles are peaked. IMPRESSION: Moderate osteoarthritis and joint effusion. XR KNEE, RIGHT 07/31/23 CLINICAL INFORMATION: Right knee pain. COMPARISON: MRI right knee 12/08/2019 TECHNIQUE: Four views of the right knee. FINDINGS: Alignment is anatomic. There is mild medial tibiofemoral and patellofemoral cartilage space loss with marginal osteophytes. No displaced fracture. Small suprapatellar joint effusion. IMPRESSION: Mild osteoarthritis of the right knee. Assessment & Plan Assessment & Plan (1) Patellofemoral pain syndrome of left knee: Code(s): M22.2X2 - Patellofemoral disorders, left knee Category: Medical (2) Bilateral primary osteoarthritis of knee: Code(s): M17.0 - Bilateral primary osteoarthritis of knee Category: Medical (3) Bilateral knee pain: Code(s): M25.561 - Pain in right knee; M25.562 - Pain in left knee Category: Medical Plan For the patient's chronic left knee osteoarthritis, which has failed conservative management, procedural options were discussed. The patient will consider either genicular nerve radiofrequency ablation or peripheral nerve stimulation. Both procedures require a successful diagnostic genicular nerve block or saphenous nerve block to confirm candidacy, which would be the next step. The patient was given informational materials to review and will call the office to schedule the chosen procedural pathway. The patient declined viscosupplementation (gel injections) at this time. Regarding the right knee pain, the immediate focus will remain on the left knee, although future treatment options for the right knee and chronic back pain can be explored after addressing the more severe left knee pain. All questions and concerns have been answered and patient agreed with the treatment plan. Follow up as needed. Patient was informed and verbally consented to the use of an ambient scribe for clinic note documentation during this visit. Coding Level of Care Code New Pt Level 4 (65852) Diagnoses Patellofemoral pain syndrome of left knee M22.2X2 Bilateral primary osteoarthritis of knee M17.0 Bilateral knee pain M25.561; M25.562
[2025-04-18 11:32] VITALS: BP 149/76; PULSE 114; O2SAT 97; BMI 32.0
--- OUTSIDE RECORDS SUMMARY | 2025-04-18 15:09 | XMS_ITS | Encounter Summary ---
Author Organization [employer] Address [address] [facility] [address] 7t [place] [address] Care Team Providers Care Bill Sorter Name Role Phone Arely Almendarez MD Primary Care Provider [phone] Dylon Botello RN Unavailable [phone] Martine Pearce Unavailable Encounter Details Date Type Department Care Team (Late st Contact Info) Description 01/12/2024 Orders Only [facility] 230 [place], [place] [phone] Arely Almendarez MD 230 [place], [place] [phone] Social History Tobacco Use Types Packs/Day Years [...] on filedocumented in this encounter Care Teams Bill Sorter Relationship Specialty Start Date End Date Arely Almendarez MD 230 [place] [address] PCP - General Family Medicine 07/04/22 Dylon Botello, RN 505 [place] [address] Registered Nurse Family Medicine 11/24/24 01/18/25 Martine Pearce 11/24/24 01/18/25 Mark Etienne 11/09/22 documented as of this encounter
--- OUTSIDE RECORDS SUMMARY | 2025-04-18 15:09 | XMS_ITS | Encounter Summary ---
Author Organization [employer] Address [address] [facility] [address] 7t [place] [address] Care Team Providers Care Third Rigger Name Role Phone Arely Almendarez MD Primary Care Provider [phone] Dylon Botello RN Unavailable [phone] Martine Pearce Unavailable Reason for Visit * Reason Comments Med Refill Encounter Details Date Type Department Care Team ([facility] st Contact Info) Description 06/24/2023 Refill [facility] [address] [place], [place] [phone] Arely Almendarez MD 230 [place], [place] [phone] Essential hypertension Social History Tobacco Use Types [...] hypertension documented in this encounter Care Teams Third Rigger Relationship Specialty Start Date End Date Arely Almendarez MD [address] [place] [address] PCP - General Family Medicine 07/04/22 Dylon Botello RN [address] [place] [address] Registered Nurse Family Medicine 11/24/24 01/18/25 Martine Pearce 11/24/24 01/18/25 Mark Etienne 11/09/22 documented as of this encounter
--- OUTSIDE RECORDS SUMMARY | 2025-04-18 15:09 | XMS_ITS | Encounter Summary ---
Author Organization [employer] Address [address] [place] [address] 7 [place] [address] Care Team Providers Care Physical Metallurgist Name Role Phone Arely Almendarez MD Primary Care Provider Dylon Botello RN Unavailable [phone] Martine Pearce Unavailable Encounter Details Date Type Department Care Team (Late st Contact Info) Description 07/04/2022 Abstract [facility] 230 [place] [address] Montse Sauceda MD Social History Tobacco Use [...] on filedocumented in this encounter Care Teams Physical Metallurgist Relationship Specialty Start Date End Date Arely Almendarez MD 230 [place] [address] PCP - General Family Medicine 07/04/22 Dylon Botello, RN [address] [place] [address] Registered Nurse Family Medicine 11/24/24 01/18/25 Martine Pearce 11/24/24 01/18/25 Mark Etienne 11/09/22 documented as of this encounter
--- OUTSIDE RECORDS SUMMARY | 2025-04-18 15:09 | XMS_ITS | Encounter Summary ---
Author Organization [employer] Address [address] [place] [address] 7 [place] [address] Care Team Providers Care Civil Engineering Assistant Name Role Phone Arely Almendarez MD Primary Care Provider Dylon Botello RN Unavailable [phone] Martine Pearce Unavailable Encounter Details Date Type Department Care Team (Late st Contact Info) Description 07/04/[address] [facility] 230 [place] [address] Montse Sauceda MD Social History Tobacco Use [...] on filedocumented in this encounter Care Teams Civil Engineering Assistant Relationship Specialty Start Date End Date Arely Almendarez MD 230 [place] [address] PCP - General Family Medicine 07/04/22 Dylon Botello, RN [address] [place] [address] Registered Nurse Family Medicine 11/24/24 01/18/25 Martine Pearce 11/24/24 01/18/25 Mark Etienne 11/09/22 documented as of this encounter
--- OUTSIDE RECORDS SUMMARY | 2025-04-18 15:09 | XMS_ITS | Encounter Summary ---
Author Organization [employer] Address 75 [facility] 7t [place] [address] Care Team Providers Care Chemical Processing Supervisor Name Role Phone Arely Almendarez MD Primary Care Provider [phone] Dylon Botello RN Unavailable [phone] Martine Pearce Unavailable Encounter Details Date Type Department Care Team (Late st Contact Info) Description 10/25/2022 Orders Only [facility] 230 [place] [address] Arely Almendarez MD 230 [place] [address] Chronic pain of both knees Social History [...] knees documented in this encounter Care Teams Chemical Processing Supervisor Relationship Specialty Start Date End Date Arely Almendarez MD 230 [place], [place] [phone] PCP - General Family Medicine 07/04/22 Dylon Botello, LINDA [address] [place], [place] [address], [place] [address] Registered Nurse Family Medicine 11/24/24 01/18/25 Martine Pearce 11/24/24 01/18/25 Mark Etienne 11/09/22 documented as of this encounter
--- OUTSIDE RECORDS SUMMARY | 2025-04-18 15:10 | XMS_ITS | Encounter Summary ---
Author Organization [employer] Address [address] [facility] [address] 7t [place] [address] Care Team Providers Care Intelligence Director Name Role Phone Arely Almendarez MD Primary Care Provider [phone] Dylon Botello RN Unavailable [phone] Martine Pearce Unavailable Reason for Visit * Reason Comments Med Refill Encounter Details Date Type Department Care Team ([facility] st Contact Info) Description 05/15/2023 Refill [facility] [address] [place], [place] [phone] Arely Almendarez MD 230 [place] [address] Social History Tobacco Use Types Packs/Day Years [...] on filedocumented in this encounter Care Teams Intelligence Director Relationship Specialty Start Date End Date Arely Almendarez MD [address] [place] [address] PCP - General Family Medicine 07/04/22 Dylon Botello RN [address] [place] [address] Registered Nurse Family Medicine 11/24/24 01/18/25 Martine Pearce 11/24/24 01/18/25 Mark Etienne 11/09/22 documented as of this encounter
--- OUTSIDE RECORDS SUMMARY | 2025-04-18 15:10 | XMS_ITS | Encounter Summary ---
Author Organization [employer] Address 75 [facility] 7t [place] [address] Care Team Providers Care Clinical Project Coordinator Name Role Phone Arely Almendarez MD Primary Care Provider [phone] Dylon Botello RN Unavailable [phone] Martine Pearce Unavailable Reason for Visit * Reason Onset Date Comments Nurse Triage 12/11/2022 Encounter Details Date Type Department Care Team ([facility] st Contact Info) Description 12/11/2022 Telephone [facility] 230 [place], [place] [phone] Arely Almendarez MD 230 [place], [place] [phone] Nurse Triage Social History Tobacco Use Types [...] fever. Pt is advised to come to [facility] today but, reports will be there at [...] on filedocumented in this encounter Care Teams Clinical Project Coordinator Relationship Specialty Start Date End Date Arely Almendarez MD 230 [place] [address] PCP - General Family Medicine 07/04/22 Dylon Botello, RN [address] [place] [address] Registered Nurse Family Medicine 11/24/24 01/18/25 Martine Pearce 11/24/24 01/18/25 Mark Etienne 11/09/22 documented as of this encounter
--- OUTSIDE RECORDS SUMMARY | 2025-04-18 15:10 | XMS_ITS | Encounter Summary ---
Author Organization [employer] Address [address] [facility] [address] [place] [address] Care Team Providers Care Supervisor [employer]lass Boat Assembly Name Role Phone Arely Almendarez MD Primary Care Provider [phone] Dylon Botello RN Unavailable [phone] Martine Pearce Unavailable Encounter Details Date Type Department Care Team (Late st Contact Info) Description 04/11/2023 Orders Only [facility] MED[facility] 230 [place], [place] [phone] Arely Almendarez MD 230 [place], [place] [phone] Vasomotor symptoms due to menopause (Primary Dx) [...] Primary documented in this encounter Care Teams Supervisor [employer] Boat Assembly Relationship Specialty Start Date End Date Arely Almendarez MD [address] [place] [address] PCP - General Family Medicine 07/04/22 Dylon Botello RN [address] [place] [address] Registered Nurse Family Medicine 11/24/24 01/18/25 Martine Pearce 11/24/24 01/18/25 Mark Etienne 11/09/22 documented as of this encounter
--- OUTSIDE RECORDS SUMMARY | 2025-04-18 15:10 | XMS_ITS | Encounter Summary ---
Author Organization [employer] Address [address] [facility] [address] 7[address] [place] [address] Care Team Providers Care Apiarist Name Role Phone Arely Almendarez MD Primary Care Provider [phone] Dylon Botello RN Unavailable [phone] Martine Pearce Unavailable Encounter Details Date Type Department Care Team (Late st Contact Info) Description 06/09/2024 Orders Only [facility] 230 [place], [place] [phone] Arely Almendarez MD 230 [place], [place] [phone] Social History Tobacco Use Types Packs/Day Years [...] documented as of this encounter Care Teams Apiarist Relationship Specialty Start Date End Date Arely Almendarez MD [address] [place] [address] PCP - General Family Medicine 07/04/22 Dylon Botello, LINDA [address] [place] [address] Registered Nurse Family Medicine 11/24/24 01/18/25 Martine Pearce 11/24/24 01/18/25 Mark Etienne 11/09/22 documented as of this encounter
--- OUTSIDE RECORDS SUMMARY | 2025-04-18 15:10 | XMS_ITS | Encounter Summary ---
Author Organization [employer] Address [address] [place] [address] 7 [place] [address] Care Team Providers Care Handicapper Harness Racing Name Role Phone Arely Almendarez MD Primary Care Provider [phone] Dylon Botello RN Unavailable [phone] Martine Pearce Unavailable Encounter Details Date Type Department Care Team (Late st Contact Info) Description 01/28/2023 Abstract [facility] MEDICINE 230 [place] [address] Arely Almendarez MD 230 [place] [address] Social History Tobacco Use Types Packs/Day Years [...] on filedocumented in this encounter Care Teams Handicapper Harness Racing Relationship Specialty Start Date End Date Arely Almendarez MD 230 [place] [address] PCP - General Family Medicine 07/04/22 Dylon Botello, LINDA [address] [place] [address] Registered Nurse Family Medicine 11/24/24 01/18/25 Martine Pearce 11/24/24 01/18/25 Mark Etienne 11/09/22 documented as of this encounter
--- OUTSIDE RECORDS SUMMARY | 2025-04-18 15:10 | XMS_ITS | Encounter Summary ---
Author Organization [employer] Address [address] [facility] [address] [place] [address] Care Team Providers Care Produce Department Manager Name Role Phone Arely Almendarez MD Primary Care Provider Dylon Botello RN Unavailable [phone] Martine Pearce Unavailable Encounter Details Date Type Department Care Team (Late st Contact Info) Description 06/24/2023 Orders Only [facility] MEDICINE 230 [place], [place] [phone] Arely Almendarez MD 230 [place], [place] [phone] Chronic knee pain, unspecified laterality Social History [...] laterality documented in this encounter Care Teams Produce Department Manager Relationship Specialty Start Date End Date Arely Almendarez MD [address] [place] [address] PCP - General Family Medicine 07/04/22 Dylon Botello RN [address] [place] [address] Registered Nurse Family Medicine 11/24/24 01/18/25 Martine Pearce 11/24/24 01/18/25 aMrk Etienne 11/09/22 documented as of this encounter
--- OUTSIDE RECORDS SUMMARY | 2025-04-18 15:10 | XMS_ITS | Encounter Summary ---
Author Organization [employer] Address [address] [facility] [facility] [address] 7t [place] [address] Care Team Providers Care Political Theory Professor Name Role Phone Arely Almendarez MD Primary Care Provider [phone] Dylon Botello RN Unavailable [phone] Martine Pearce Unavailable Reason for Visit * Reason Comments Med Refill Encounter Details Date Type Department Care Team ([facility] st Contact Info) Description 08/10/2024 Refill [facility] [address] [place] [address] Leni Carney DO [address] [place] [address] Migraine without aura, not refractory Social History [...] documented as of this encounter Care Teams Political Theory Professor Relationship Specialty Start Date End Date Arely Almendarez MD [address] [place] [address] PCP - General Family Medicine 07/04/22 Dylon Botello, LINDA [address] [place] [address] Registered Nurse Family Medicine 11/24/24 01/18/25 Martine Pearce 11/24/24 01/18/25 Mark Etienne 11/09/22 documented as of this encounter
--- OUTSIDE RECORDS SUMMARY | 2025-04-18 15:10 | XMS_ITS | Encounter Summary ---
Author Organization [employer] Address [address] [facility] [address] 7t [place] [address] Care Team Providers Care Tankage Grinder Name Role Phone Arely Almendarez MD Primary Care Provider [phone] Dylon Botello RN Unavailable [phone] Martine Pearce Unavailable Reason for Visit * Reason Comments Med Refill Encounter Details Date Type Department Care Team ([facility] st Contact Info) Description 05/11/2024 Refill [facility] 230 [place], [place] [phone] Arely Almendarez MD 230 [place], [place] [phone] Social History Tobacco Use Types Packs/Day Years [...] documented as of this encounter Care Teams Tankage Grinder Relationship Specialty Start Date End Date Arely Almendarez MD [address] [place] [address] PCP - General Family Medicine 07/04/22 Dylon Botello, LINDA [address] [place] [address] Registered Nurse Family Medicine 11/24/24 01/18/25 Martine Pearce 11/24/24 01/18/25 Mark Etienne 11/09/22 documented as of this encounter
--- OUTSIDE RECORDS SUMMARY | 2025-04-18 15:10 | XMS_ITS | Encounter Summary ---
Author Organization [employer] Address [address] [facility] [address] 7t [place] [address] Care Team Providers Care Die Stamping Press Operator Name Role Phone Arely Almendarez MD Primary Care Provider Dylon Botello RN Unavailable [phone] Martine Pearce Unavailable Reason for Visit * Reason Comments Med Refill Encounter Details Date Type Department Care Team ([facility] st Contact Info) Description 03/07/2023 Refill [facility] 230 [place], [place] [phone] Arely Almendarez MD 230 [place], [place] [phone] Chronic knee pain, unspecified laterality Social History [...] laterality documented in this encounter Care Teams Die Stamping Press Operator Relationship Specialty Start Date End Date Arely Almendarez MD [address] [place] [address] PCP - General Family Medicine 07/04/22 Dylon Botello RN [address] [place] [address] Registered Nurse Family Medicine 11/24/24 01/18/25 Martine Pearce 11/24/24 01/18/25 Mark Etienne 11/09/22 documented as of this encounter
--- OUTSIDE RECORDS SUMMARY | 2025-04-18 15:10 | XMS_ITS | Encounter Summary ---
Author Organization [employer] Address [address] [facility] 7t [place] [address] Care Team Providers Care Hot Mill Operator Name Role Phone Arely Almendarez MD Primary Care Provider [phone] Dylon Botello RN Unavailable [phone] Martine Pearce Unavailable Reason for Visit * Reason Onset Date Comments Nurse Triage 07/14/2024 Encounter Details Date Type Department Care Team ([facility] st Contact Info) Description 07/14/2024 Telephone [facility] MED[facility] 230 [place], [place] [phone] Arely Almendarez MD 230 [place], [place] [phone] Nurse Triage Social History Tobacco Use Types [...] with home care advised. ASK apt with TREAD TUBER MACHINE OPERATOR Harika 07/16/24. Pt agrees with disposition. Insurance [...] caller accepted this outcome. Contact pt at [phone] documented in this encounter Plan of Treatment Not on file documented as of this encounter Visit Diagnoses Not on filedocumented in this encounter Additional Health Concerns Assessment Noted Time PHQ-9 Depression Total Score: 5 04/28/20 24 11:26 AM EST documented as of this encounter Care Teams Hot Mill Operator Relationship Specialty Start Date End Date Arely Almendarez MD 230 [place] [address] PCP - General Family Medicine 07/04/22 Dylon Botello, RN [address] [place] [address] Registered Nurse Family Medicine 11/24/24 01/18/25 Martine Pearce 11/24/24 01/18/25 Mark Etienne 11/09/22 documented as of this encounter
--- OUTSIDE RECORDS SUMMARY | 2025-04-18 15:10 | XMS_ITS | Clinical Summary ---
Author Organization [employer] Address [address] [facility] 7t [place] [address] Care Team Providers Care Fraternity Adviser Name Role Phone Arely Almendarez MD Primary Care Provider [phone] Allergies Active Allergy Reactions Criticality Noted Date Comments Celecoxib 01/17/2012 Citalopram Hives 07/29/2022 Silicon Hives 09/18/2016 Silicone Hives Medium 07/29/2022 Medications famotidine (Pepcid) 40 MG tabletIndications:Gastr oesophageal reflux disease without esophagitis take 1 tablet by oral route every day at bedtime 90 tablet 023 Active QUEtiapine (SEROquel) 50 MG tablet TAKE 1 TO 2 TABLETS BY MOUTH AT BEDTIME NEEDED Active QUEtiapine (SEROquel) 200 MG tablet Take 200 mg by mouth if needed at bedtime. 023 Active Lidocaine HCl 3 % cream Apply topically every 12 (twelve) hours. 022 Active lamoTRIgine (LaMICtal) 150 MG tablet Take 1 tablet by mouth 2 times daily. 023 Active Vraylar 6 MG capsule Take 1 capsule by mouth in the morning. 023 Active butalbital-acetaminophe n-caffeine 50-325-40 MG tablet Take 1 tablet by mouth every 6 (six) hours if needed. 024 Active Diclofenac Sodium (Voltaren) 1 % gel Apply 1 Application topically 2 times daily. 100 g 11 024 Active amLODIPine (Norvasc) 5 MG tabletIndications:Essen tial hypertension TAKE 1 TABLET BY MOUTH EVERY DAY 90 tablet 3 024 Active cholecalciferol (Vitamin D-3) 25 MCG (1000 UT) tabletIndications:Vitam in D deficiency TAKE 1 TABLET BY MOUTH EVERY MORNING 90 tablet 3 Active omeprazole (PriLOSEC) [address] capsule TAKE 1 CAPSULE BY MOUTH EVERY MORNING 90 capsule 3 Active brimonidine (AlphaGAN P) 0.1 % ophthalmic solution Instill 1 drop in each eye daily as needed for ptosis. 5 mL 6 Active drospirenone-estradiol (Angrliq) 0.5-1 MG tablet Take 1 tablet by mouth Once per day. 90 tablet 3 024 2024 Active Varenicline Tartrate, Starter, (Chantix Starting Month ) 0.5 MG X 11 & 1 MG X 42 tablet therapy pack Take 0.5 mg by mouth Once daily for 3 days, THEN 0.5 mg 2 times daily for 4 days, THEN 1 mg 2 times daily for 21 days. 1 each Active lisinopril 40 MG tabletIndications:Essen tial hypertension TAKE 1 TABLET BY MOUTH EVERY DAY 90 tablet 3 Active hydroCHLOROthiazide (HYDRODiuril) 25 MG tabletIndications:Essen tial hypertension TAKE 1 TABLET BY MOUTH EVERY MORNING 90 tablet 3 Active lidocaine (Lidoderm) 5 % patch APPLY 1 PATCH BY TRANSDERMAL ROUTE EVERY DAY IF NEEDED FOR PAIN (MAY WEAR UP TO 12 HOURS) 30 patch 11 5 1:19 PM EST Active acetaminophen (Tylenol 8 Hour) 650 MG ER tabletIndications:Migra ine without aura, not refractory Take 1 tablet (650 mg) by mouth every 8 (eight) hours if needed for mild pain. 40 tablet 1 Active naproxen (Naprosyn) 500 MG tablet Take 1 tablet (500 mg) by mouth if needed in the morning and at bedtime for mild pain. 30 tablet 025 2025 Active rosuvastatin (Crestor) 5 MG tabletIndications:Mixed hypercholesterolemia and hypertriglyceridemia TAKE 1 TABLET BY MOUTH ONCE DAILY 90 tablet 3 Active levothyroxine (Synthroid, Levoxyl) 137 MCG tabletIndications:Acqui red hypothyroidism TAKE 1 TABLET BY MOUTH ONCE DAILY 90 tablet 3 05/07/2 025 Active baclofen (Lioresal) 10 MG tablet TAKE 1 TABLET BY MOUTH TWICE DAILY IN THE MORNING AND AT BEDTIME NEEDED FOR MUSCLE SPASMS 60 tablet 1 Active cloNIDine (Catapres) 0.1 MG tabletIndications:Bipol ar I disorder (CMS/HCC) ([facility]) take 1/2 tablet by mouth every night Active lamoTRIgine (LaMICtal) 200 MG tabletIndications:Bipol ar I disorder (CMS/HCC) ([facility]) Take 1 tablet by mouth 2 times daily. Active amitriptyline (Elavil) 10 MG tabletIndications:Migra ine without aura, not refractory Take 1 tablet (10 mg) by mouth at bedtime. To PREVENT migraines 90 tablet 3 025 2025 Active rizatriptan (Maxalt) 5 MG tabletIndications:Migra ine without aura, not refractory Take 1 tablet (5 mg) by mouth 1 (one) time if needed for migraine for up to 63 doses. May repeat in 2 hours if unresolved. Do not exceed 30 mg in 24 hours. 9 tablet 6 Active varenicline (Chantix) 1 MG tabletIndications:Tobac co use Take 1 tablet (1 mg) by mouth 2 times daily. Take with full glass of water. 56 tablet 2 Active gabapentin (Neurontin) 400 MG capsule TAKE 1 CAPSULE BY MOUTH TWICE DAILY 60 capsule 3 Active Ventolin HFA 108 (90 Base) MCG/ACT inhalerIndications:Mild persistent asthma without complication INHALE 2 PUFFS BY MOUTH EVERY 4 TO 6 HOURS NEEDED 18 g 3 Active Active Problems Problem Noted Date Diagnosed Date [...] TID Will restart, have her start with [facility] on red team Goals of prescribing and limitations of pain meds If she cannot come to [facility] appointments or has illicit substances in her urine again, we will stop the medication Assessment & Plan (09/23/2022 11:03 AM EDT): On Tramadol for this previously 50mg TID Will restart, have her start with [facility] on red team Goals of prescribing and [...] Continue Synthroid 137mcg daily Bipolar I disorder ([facility]) 11/14/2015 Assessment & Plan (10/01/2023 10:45 AM [...] Encounters Date Type Department Care Team Description 03/21/2025 Travel 03/14/2025 Telephone [facility] [address] [place] [address] iMrela Wilder, OD 01/22/2025 Refill [facility] [address] [place] [address] Arely Almendarez MD Mild persistent asthma without complication 01/21/2025 Refill [facility] [address] [place] [address] Leni Carney DO 01/18/2025 Patient Outreach [facility] [address] [place] [address] Arely Almendarez MD Care Coordination (C3 CM-W Martine Pearce telephone call outreach/) from Last 3 Months Immunizations Immunization Administration [...] housing situation today? I have conrado cecily 01/10/[address] you li [...] 01/10/2025 3:19 PM EDT Plan of Treatment Health Maintenance Due Date Last Done Comments CT Colonography 1965 FIT DNA/Cologuard 1965 FIT 1965 FOBT 1965 Sigmoidoscopy 1965 Disability Screening 1965 Meningococcal Vaccine (1 - Risk 2-dose series) 1966 RSV Patients and Patients Aged 60 years or older (1 - Risk 50-74 years 1-dose series) 2014 Colonoscopy 10/03/2017 10/03/2016 Colorectal Cancer Screening 10/03/2017 Pneumococcal Vaccine: 50+ Years (2 of 2 - PCV) 12/26/2021 12/26/2020 Mammogram 06/22/2023 06/22/2021, 09/24, 10/02/2017 SDOH Screening 09/22/2024 09/23/2023 COVID-19 Vaccine ( [...] Completed 03/01/2016, 11/14/2015, 02/02/2009 Hepatitis A Vaccines Completed 10/03/2017, 11/14/19 16 Zoster Vaccines Completed 01/02/2021, 11/01/2020 HIV Screening [...] TOTAL Routine 01/10/2025 3:21 PM EDT Prediabetes HEPATITIS C AB W/REFL TO HCV RNA, [...] Media Lot # [id number] Lot# Expiration Date 346 Blood 01/10/2025 3:21 PM EDT Arely Almendarez MD POINT OF CARE TEST ENTER/EDIT ORDERABLES Final Result * Hepatitis C Antibody with Reflex to HCV, RNA, Quantitative, Real-Time PCR (09/30/2023 11:41 AM EDT) Pathologist [facility] Hepatitis C Antibody Nonreactive Nonreactive [facility] Comment:Antibodies to HCV no t detected; does not exclude early acuteHCV infection. Blood Venous blood specimen / Unknown 09/30/2023 11:41 AM EDT 09/30/2023 1:16 PM EDT Arely Almendarez MD LAB BLOOD ORDERABLES Final Res ult [facility] [address] [place] [address] [phone] * HIV-1/2 Antigen and Antibodies, Fourth Generation, with Reflexes (09/30/2023 11:41 AM EDT) Pathologist [facility] HIV AB/AG Nonreactive Nonreactive [facility] Comment:HIV-1 p24 Ag and/or HIV-1/HIV-2 Ab not detected.A test result that is nonreactive does not exclude thepossibility of exposure to or infection with HIV-1 and/orHIV-2. Nonreactive results in this assay for individualswith prior exposure to HIV-1 and/or HIV-2 may be due toantigen and antibody levels that are below the limit ofdetection of this assay.The [employer] HIV Ag/Ab Combo assay result andsupplemental assay results should be interpreted inconjunction with the patient's clinical presentation,history and other laboratory results. If the results areinconsistent with clinical evidence, additional testing issuggested to confirm the result. Blood Venous blood specimen / Unknown 09/30/2023 11:41 AM EDT 09/30/2023 1:16 PM EDT Arely Almendarez MD LAB BLOOD ORDERABLES Final Res ult Performing Organization Address [facility]/ZIP Co de Phone Number [facility] [address] [place] [address] [phone] * Lipid Panel, Standard (09/30/2023 11:41 AM EDT) Triglycerides 134 <150 mg/dL [facility] Comment:Desirable Triglyceri de: less than 150 mg/dLBorderline High Triglyceride 150-199 mg/dLHigh Triglyceride: 200-499 mg/dLVery High Triglyceride: greater than or equal to 5OO mg/dL Cholesterol 134 <200 mg/dL [facility] Comment:Desirable Cholestero l: less than 200 mg/dLBorderline High Cholesterol: 200-239 mg/dLHigh Cholesterol: greater than 239 mg/dL LDL Cholesterol Calculated 62 <100 mg/dL [facility] Comment:Desirable LDL: less than 100 mg/dLNear Optimal/Above Optimal LDL: 110- 129 mg/dLBorderline High LDL: 130-159 mg/dLHigh LDL: 160-189 mg/dLVery High LDL: greater than or equal to 190 mg/dL HDL Cholesterol 46 >40 mg/dL [facility] Comment:Desirable HDL: great er than 40 mg/dL Note: This HDL assay may give artificially low results in patients with liver disease. Blood Venous blood specimen / Unknown 09/30/2023 11:41 AM EDT 09/30/2023 1:16 PM EDT Arely Almendarez MD LAB BLOOD ORDERABLES Final Res ult Performing Organization Address [facility]/ZIP Co de Phone Number [facility] [address] [place] [address] [phone] * HPV mRNA E6/E7 w/Reflex to HPV Genotypes 16, 18/45 (04/30/2023 3:55 PM EST) HPV nRNA E6/E7 Not Detected Not Detected [facility] Comment:Methodology: Transcr iption-Mediated AmplificationThis assay detects E6/E7 viral messenger RNA (mRNA) from 14high-risk HPV types (16,18,31,33,35,39,45,51,52,56,58,59,66,68).Cervical sources are required for HPV testing.If a vaginal source from a patient who has had atotal hysterectomy with removal of cervix wassubmitted, please contact the testing laboratoryfor alternative testing options.For additional information, please refer [email or web address]/faq/[email or web address](This link if provided for information/educational purposes only.)THIS TEST WAS PERFORMED AT:[facility] [place] [phone] RODAS MD HPV mRNA E6/E7 TNP [facility] HPV 16 RNA [facility] HPV 18/45 RNA [facility] 04/30/2023 3:55 PM EST 05/01/2023 8:20 AM EST Arely Almendarez MD LAB CYTOLOGY ORDERABLES Final Result [facility] [address] [place] [address] [phone] * Pap Smear (04/30/2023 3:55 PM EST) 04/30/2023 3:55 PM EST 05/01/2023 8:20 AM EST Narrative [facility] - 05/05/2023 1:42 PM EST ----- ------- Name: Angela Landeros Age/Sex: 57/F : 1965 Unit#: [id number] Attend Dr: Arely Almendarez Re04/30/23 Status: DEP [facility] ----- ------- SPEC : [id number] RECD: 05/01/23 STATUS: IDA KELLOGG NUM: [id number] OMKAR: 04/30/[address] [facility] [address]: Arely Almendarez ENTERED: 05/01/23 SP TYPE: Pap Smr OTHR DR: ORDERED: Pap Smear Interpretation Satisfactory for evaluation. Negative for intraepithelial lesion or malignancy. HPV mRNA E6/E7: NOT DETECTED This assay detects E6/E7 viral messenger RNA (mRNA) from 14 high-risk HPV types (16, 18, 31, 33, 35, 39, 45, 51, 52, 56, 58, 59, 66, 68) HPV testing performed by [employer], [place], [place]. See reference laboratory portion of the EMR for entire report. Clinical Information LMP: Unknown date Previous PAP test: Unknown date. WNL Material Received ThinPrep-Vaginal/Cervical ----- ------- Signed (signature on file) LUDA Norman (ASCP) 05/05/23 [id number] ----- ------- END OF REPORT us Arely Almendarez MD LAB CYTOLOGY ORDERABLES Final Result [facility] [address] [place] [address] [phone] * Mammography Report 1 (06/22/2021 9:55 [...] * Hm Colonoscopy (10/03/2016 9:17 AM EDT) Hugh Provider HEALTH MAINTENANCE Final Result from Last 3 Months or Most Recently Relevant to Health Maintenance Insurance [employer]3 Care Teams Fraternity Adviser Relationship Specialty Start Date End Date Arely Almendarez MD [address] [place] [address] PCP - General Family Medicine 07/04/22 Mark Etienne 11/09/22
--- OUTSIDE RECORDS SUMMARY | 2025-04-18 15:10 | XMS_ITS | Encounter Summary ---
Author Organization [employer] Address [address] [facility] 7t [place] [address] Care Team Providers Care Piper Installer Name Role Phone Arely Almendarez MD Primary Care Provider [phone] Dylon Botello RN Unavailable [phone] Martine Pearce Unavailable Encounter Details Date Type Department Care Team (Late st Contact Info) Description 09/30/2022 Abstract [facility] [address] [place] [address] Arely Almendarez MD [address] [place], [place] [phone] Social History Tobacco Use Types Packs/Day Years [...] on filedocumented in this encounter Care Teams Piper Installer Relationship Specialty Start Date End Date Arely Almendarez MD [address] [place] [address] PCP - General Family Medicine 07/04/22 Dylon Botello, RN [address] [place] [address] [place] [address] Registered Nurse Family Medicine 11/24/24 01/18/25 Martine Pearce 11/24/24 01/18/25 Mark Etienne 11/09/22 documented as of this encounter
--- OUTSIDE RECORDS SUMMARY | 2025-04-18 15:10 | XMS_ITS | Encounter Summary ---
Author Organization [employer] Address [address] [facility] [address] 7t [place] [address] Care Team Providers Care Legal Administrative Secretary Name Role Phone Arely Almendarez MD Primary Care Provider [phone] Dylon Botello RN Unavailable [phone] Martine Pearce Unavailable Reason for Visit * Reason Comments Med Refill Encounter Details Date Type Department Care Team ([facility] st Contact Info) Description 05/11/2024 Refill [facility] 230 [place], [place] [phone] Arely Almendarez MD [address] [place], [place] [phone] Social History Tobacco Use Types Packs/Day Years [...] documented as of this encounter Care Teams Legal Administrative Secretary Relationship Specialty Start Date End Date Arely Almendarez MD [address] [place] [address] PCP - General Family Medicine 07/04/22 Dylon Botello, LINDA [address] [place] [address] Registered Nurse Family Medicine 11/24/24 01/18/25 Martine Pearce 11/24/24 01/18/25 Mark Etienne 11/09/22 documented as of this encounter
--- OUTSIDE RECORDS SUMMARY | 2025-04-18 15:10 | XMS_ITS | Encounter Summary ---
Author Organization [employer] Address [address] [facility] [address]t [place] [address] Care Team Providers Care Vascular Sonographer Name Role Phone Arely Almendarez MD Primary Care Provider [phone] Dylon Botello RN Unavailable [phone] Martine Pearce Unavailable Encounter Details Date Type Department Care Team (Late st Contact Info) Description 10/01/2023 Orders Only [facility] [address] [place] [address] Provider, MD Hugh Social History Tobacco Use [...] us Historical Provider HEALTH MAINTENANCE Final Result documented in this encounter Visit Diagnoses Not on filedocumented in this encounter Care Teams Vascular Sonographer Relationship Specialty Start Date End Date Arely Almendarez MD [address] [place] [address] PCP - General Family Medicine 07/04/22 Dylon Botello RN [address] [place] [address] Registered Nurse Family Medicine 11/24/24 01/18/25 Martine Pearce 11/24/24 01/18/25 Mark Etienne 11/09/22 documented as of this encounter
--- OUTSIDE RECORDS SUMMARY | 2025-04-18 15:10 | XMS_ITS | Encounter Summary ---
Author Organization [employer] Address 75 [facility] 7t [place] [address] Care Team Providers Care License Registration Examiner Name Role Phone Arely Almendarez MD Primary Care Provider [phone] Dylon Botello RN Unavailable [phone] Martine Pearce Unavailable Encounter Details Date Type Department Care Team (Late st Contact Info) Description 12/06/2022 Orders Only [facility] [address] [place] [address] Arely Almendarez MD [address] [place] [address] Social History Tobacco Use Types Packs/Day Years [...] on filedocumented in this encounter Care Teams License Registration Examiner Relationship Specialty Start Date End Date Arely Almendarez MD 230 [place] [address] PCP - General Family Medicine 07/04/22 Dylno Botello RN [address] [place] [address] Registered Nurse Family Medicine 11/24/24 01/18/25 Martine Pearce 11/24/24 01/18/25 Mark Etienne 11/09/22 documented as of this encounter
--- OUTSIDE RECORDS SUMMARY | 2025-04-18 15:10 | XMS_ITS | Encounter Summary ---
Author Organization [employer] Address [address] [facility] [address] [place] [address] Care Team Providers Care Filtrose Crusher Name Role Phone Arely Almendarez MD Primary Care Provider [phone] Dylon Botello RN Unavailable [phone] Martine Pearce Unavailable Reason for Visit * Reason Comments Med Refill Encounter Details Date Type Department Care Team ([facility] st Contact Info) Description 06/02/2023 Refill [facility] 230 [place], [place] [phone] Arely Almendarez MD 230 [place], [place] [phone] Tobacco use Social History Tobacco Use Types [...] use documented in this encounter Care Teams Filtrose Crusher Relationship Specialty Start Date End Date Arely Almendarez MD [address] [place] [address] PCP - General Family Medicine 07/04/22 Dylon Botello RN [address] [place] [address] Registered Nurse Family Medicine 11/24/24 01/18/25 Martine Pearce 11/24/24 01/18/25 Mark Etienne 11/09/22 documented as of this encounter
--- OUTSIDE RECORDS SUMMARY | 2025-04-18 15:10 | XMS_ITS | Encounter Summary ---
Author Organization [employer] Address [address] [facility] [address] [place] [address] Care Team Providers Care Environmental Technician Name Role Phone Arely Almendarez MD Primary Care Provider [phone] Dylon Botello RN Unavailable [phone] Martine Pearce Unavailable Encounter Details Date Type Department Care Team (Late st Contact Info) Description 12/13/2022 Orders Only [facility] MEDICINE [address] [place] [address] Arely Almendarez MD [address] [place] [address] Tobacco use Social History Tobacco Use Types [...] use documented in this encounter Care Teams Environmental Technician Relationship Specialty Start Date End Date Arely Almendarez MD [address] [place] [address] PCP - General Family Medicine 07/04/22 Dylon Botello RN [address] [place] [id number] Registered Nurse Family Medicine 11/24/24 01/18/25 Martine Pearce 11/24/24 01/18/25 Mark Etienne 11/09/22 documented as of this encounter
== END 2025-04-18 11:43 | disposition home or self-care (01) ==
PROVIDERS: PCP General Practice; Referring Provider Physician Assistant; Visit Provider Nurse Practitioner Family
DX: M22.2X2 Patellofemoral disorders, left knee (principal); M17.0 Bilateral primary osteoarthritis of knee; M25.561 Pain in right knee; M25.562 Pain in left knee
CPT/HCPCS: 99204

== ENCOUNTER → 2025-04-18 11:29 | Outpatient (BNVA) | payer MEDICAID, SELFPAY | PROVIDERS: PCP General Practice; Referring Provider Physician Assistant; Visit Provider Nurse Practitioner Family | DX: M25.562 Pain in left knee (principal); M25.561 Pain in right knee; M17.0 Bilateral primary osteoarthritis of knee; M22.2X2 Patellofemoral disorders, left knee | CPT/HCPCS: 99212 ==